=== PATIENT | male | born 1935 | race Caucasian/White ===

== ENCOUNTER 2018-07-01 02:13 | Outpatient (RCR) | payer MEDICARE, OTHER, SELFPAY ==
[2018-07-01] MEDS: Normal Saline Flush 10 ML SYR IVP (08:35)
[2018-07-01] MEDS: Heparin 500 UNITS/5 ML SYRINGE IV (08:35)
[2018-07-01 09:09] LABS: Abs Immature Grans 0.02 k/cumm (0.0-0.09); Absolute Basophil Count 0.06 k/cumm (0.0-0.2); Absolute Eosinophil Count 0.04 k/cumm (0.0-0.7); Absolute Lymphocyte Count 2.29 k/cumm (1.2-3.4); Absolute Neutrophil Count 4.81 k/cumm (1.2-6.7); Basophils % 0.8; Eosinophils % 0.5; HCT 33.1 % (40.0-50.0); Immature Grans % 0.3; Lymphocytes % 28.9; Mean Corp. HGB Concentration 33.2 g/dL (32.0-36.0); Mean Corpuscular Volume 96.2 fL (80-95); Mean Platelet Volume 10.1 fL (8.0-11.0); Monocytes % 8.8; Neutrophils % 60.7; Platelet Count 158 x1000/uL (130-400); RBC 3.44 m/cumm (4.50-6.00); RBC Distribution Width 15.3 % (11.8-14.1); White Blood Cell Count 7.92 k/cumm (4.4-10.8)
[2018-07-01 09:19] LABS: ALT 26 U/L (12-78); AST 15 U/L (15-37); Albumin 3.6 g/dL (3.4-5.0); Alkaline Phosphatase 59 U/L (46-116); Anion Gap 9.4 mmol/L (3-11); BUN 29 mg/dL (7-18); Bilirubin, Total 0.7 mg/dL (0.2-1.0); CO2 28.6 mmol/L (21.0-32.0); CREATININE 1.53 mg/dL (0.70-1.30); Calcium 8.8 mg/dL (8.5-10.1); Chloride 106 mmol/L (98-107); Glucose 115 mg/dL (70-100); LDH 175 U/L (85-227); Potassium 3.9 mmol/L (3.5-5.1); Sodium 144 mmol/L (136-145); Total Protein 6.1 g/dL (6.4-8.2)
== END 2018-07-17 ==
LOC: INF 07-15 02:13
PROVIDERS: PCP Internal Medicine; Visit Provider Internal Medicine Hematology & Oncology
DX: C83.30 Diffuse large B-cell lymphoma, unspecified site (principal); Z45.2 Encounter for adjustment and management of vascular access device
CPT/HCPCS: 36591; 80053; 83615; 85025

== ENCOUNTER 2018-08-05 09:34 | Outpatient (RCR) | payer MEDICARE, OTHER, SELFPAY ==
[2018-07-22] MEDS: Normal Saline Flush 10 ML SYR IVP (07:51)
[2018-07-22 08:00] LABS: Abs Immature Grans 0.01 k/cumm (0.0-0.09); Absolute Basophil Count 0.03 k/cumm (0.0-0.2); Absolute Eosinophil Count 0.24 k/cumm (0.0-0.7); Absolute Lymphocyte Count 2.57 k/cumm (1.2-3.4); Absolute Monocyte Count 1.22 k/cumm (0.11-0.7); Absolute Neutrophil Count 2.77 k/cumm (1.2-6.7); Basophils % 0.4; Eosinophils % 3.5; HCT 32.7 % (40.0-50.0); Immature Grans % 0.1; Lymphocytes % 37.6; Mean Corp. HGB Concentration 33.6 g/dL (32.0-36.0); Mean Corpuscular Hemoglobin 32.3 pg (27.0-33.0); Mean Corpuscular Volume 95.9 fL (80-95); Mean Platelet Volume 9.6 fL (8.0-11.0); Monocytes % 17.8; Neutrophils % 40.6; Platelet Count 126 x1000/uL (130-400); RBC 3.41 m/cumm (4.50-6.00); RBC Distribution Width 14.7 % (11.8-14.1); White Blood Cell Count 6.84 k/cumm (4.4-10.8)
[2018-07-22 08:14] LABS: ALT 31 U/L (12-78); AST 22 U/L (15-37); Albumin 3.6 g/dL (3.4-5.0); Alkaline Phosphatase 66 U/L (46-116); Anion Gap 2.5 mmol/L (3-11); BUN 33 mg/dL (7-18); Bilirubin, Total 0.7 mg/dL (0.2-1.0); CO2 29.5 mmol/L (21.0-32.0); CREATININE 1.45 mg/dL (0.70-1.30); Calcium 8.4 mg/dL (8.5-10.1); Chloride 108 mmol/L (98-107); Estimated GFR 46.71 (mL/min/1.73m2); Glucose 108 mg/dL (70-100); LDH 163 U/L (85-227); Sodium 140 mmol/L (136-145)
[2018-08-05] MEDS: Normal Saline Flush 10 ML SYR IVP (09:35)
[2018-08-05] MEDS: Heparin 500 UNITS/5 ML SYRINGE IV (09:35)
[2018-08-05 10:19] LABS: Abs Immature Grans 0.03 k/cumm (0.0-0.09); Absolute Basophil Count 0.03 k/cumm (0.0-0.2); Absolute Eosinophil Count 0.13 k/cumm (0.0-0.7); Absolute Lymphocyte Count 2.89 k/cumm (1.2-3.4); Absolute Monocyte Count 0.99 k/cumm (0.11-0.7); Absolute Neutrophil Count 3.75 k/cumm (1.2-6.7); Basophils % 0.4; Eosinophils % 1.7; HCT 34.5 % (40.0-50.0); HGB 11.4 g/dL (13.5-17.5); Immature Grans % 0.4; Mean Corpuscular Hemoglobin 31.4 pg (27.0-33.0); Mean Platelet Volume 11.5 fL (8.0-11.0); Monocytes % 12.7; Neutrophils % 47.8; Platelet Count 129 x1000/uL (130-400); RBC 3.63 m/cumm (4.50-6.00); RBC Distribution Width 14.5 % (11.8-14.1); White Blood Cell Count 7.82 k/cumm (4.4-10.8)
[2018-08-05 10:25] LABS: ALT 17 U/L (12-78); AST 13 U/L (15-37); Albumin 3.4 g/dL (3.4-5.0); Alkaline Phosphatase 62 U/L (46-116); Anion Gap 8.4 mmol/L (3-11); BUN 29 mg/dL (7-18); Bilirubin, Total 0.7 mg/dL (0.2-1.0); CO2 29.6 mmol/L (21.0-32.0); CREATININE 1.33 mg/dL (0.70-1.30); Calcium 8.2 mg/dL (8.5-10.1); Chloride 104 mmol/L (98-107); Estimated GFR 51.61 (mL/min/1.73m2); Glucose 96 mg/dL (70-100); LDH 157 U/L (85-227); Potassium 3.9 mmol/L (3.5-5.1); Sodium 142 mmol/L (136-145); Total Protein 5.9 g/dL (6.4-8.2)
== END 2018-08-16 23:59 | disposition home or self-care (01) ==
LOC: INF 09:34
PROVIDERS: PCP Internal Medicine; Visit Provider Internal Medicine Hematology & Oncology
DX: C83.30 Diffuse large B-cell lymphoma, unspecified site (principal); Z45.2 Encounter for adjustment and management of vascular access device
CPT/HCPCS: 36591; 80053; 83615; 85025

== ENCOUNTER 2018-09-16 08:30 | Outpatient (RCR) | payer MEDICARE, OTHER, SELFPAY ==
[2018-08-19] MEDS: Normal Saline Flush 10 ML SYR IVP (08:00)
[2018-08-19 08:16] LABS: Abs Immature Grans 0.04 k/cumm (0.0-0.09); Absolute Basophil Count 0.04 k/cumm (0.0-0.2); Absolute Eosinophil Count 0.23 k/cumm (0.0-0.7); Absolute Lymphocyte Count 3.11 k/cumm (1.2-3.4); Absolute Monocyte Count 1.39 k/cumm (0.11-0.7); Absolute Neutrophil Count 4.43 k/cumm (1.2-6.7); Basophils % 0.4; Eosinophils % 2.5; HCT 34.4 % (40.0-50.0); HGB 11.5 g/dL (13.5-17.5); Immature Grans % 0.4; Lymphocytes % 33.7; Mean Corp. HGB Concentration 33.4 g/dL (32.0-36.0); Mean Corpuscular Hemoglobin 31.8 pg (27.0-33.0); Mean Platelet Volume 10.9 fL (8.0-11.0); Platelet Count 128 x1000/uL (130-400); RBC 3.62 m/cumm (4.50-6.00); RBC Distribution Width 14.4 % (11.8-14.1); White Blood Cell Count 9.24 k/cumm (4.4-10.8)
[2018-08-19 08:29] LABS: ALT 17 U/L (12-78); AST 16 U/L (15-37); Albumin 3.3 g/dL (3.4-5.0); Alkaline Phosphatase 70 U/L (46-116); Anion Gap 7.4 mmol/L (3-11); BUN 26 mg/dL (7-18); Bilirubin, Total 0.9 mg/dL (0.2-1.0); CO2 29.6 mmol/L (21.0-32.0); CREATININE 1.46 mg/dL (0.70-1.30); Calcium 8.5 mg/dL (8.5-10.1); Chloride 104 mmol/L (98-107); Estimated GFR 46.34 (mL/min/1.73m2); Glucose 101 mg/dL (70-100); LDH 239 U/L (85-227); Potassium 3.9 mmol/L (3.5-5.1); Sodium 141 mmol/L (136-145); Total Protein 5.8 g/dL (6.4-8.2)
[2018-09-16] MEDS: Normal Saline Flush 10 ML SYR IVP (08:40)
[2018-09-16 09:06] LABS: Abs Immature Grans 0.07 k/cumm (0.0-0.09); Absolute Basophil Count 0.04 k/cumm (0.0-0.2); Absolute Eosinophil Count 0.07 k/cumm (0.0-0.7); Absolute Lymphocyte Count 3.17 k/cumm (1.2-3.4); Absolute Monocyte Count 1.07 k/cumm (0.11-0.7); Absolute Neutrophil Count 4.27 k/cumm (1.2-6.7); Basophils % 0.5; Eosinophils % 0.8; HCT 36.2 % (40.0-50.0); HGB 11.9 g/dL (13.5-17.5); Immature Grans % 0.8; Lymphocytes % 36.5; Mean Corp. HGB Concentration 32.9 g/dL (32.0-36.0); Mean Corpuscular Hemoglobin 31.2 pg (27.0-33.0); Mean Platelet Volume 11.9 fL (8.0-11.0); Monocytes % 12.3; Neutrophils % 49.1; Platelet Count 135 x1000/uL (130-400); RBC 3.81 m/cumm (4.50-6.00); RBC Distribution Width 14.6 % (11.8-14.1); White Blood Cell Count 8.69 k/cumm (4.4-10.8)
[2018-09-16 09:07] LABS: ALT 27 U/L (12-78); AST 21 U/L (15-37); Albumin 3.4 g/dL (3.4-5.0); Alkaline Phosphatase 59 U/L (46-116); Anion Gap 7.9 mmol/L (3-11); BUN 31 mg/dL (7-18); Bilirubin, Total 1.1 mg/dL (0.2-1.0); CO2 29.1 mmol/L (21.0-32.0); CREATININE 1.53 mg/dL (0.70-1.30); Calcium 8.7 mg/dL (8.5-10.1); Chloride 103 mmol/L (98-107); Glucose 111 mg/dL (70-100); LDH 185 U/L (85-227); Potassium 3.6 mmol/L (3.5-5.1); Sodium 140 mmol/L (136-145); Total Protein 5.9 g/dL (6.4-8.2)
== END 2018-09-16 23:59 | disposition home or self-care (01) ==
LOC: INF 08:30
PROVIDERS: Internal Medicine Hematology & Oncology; PCP Internal Medicine; Visit Provider Internal Medicine Medical Oncology
DX: C83.30 Diffuse large B-cell lymphoma, unspecified site (principal); Z45.2 Encounter for adjustment and management of vascular access device
CPT/HCPCS: 36591; 80053; 83615; 85025

== ENCOUNTER 2018-10-07 00:47 | Outpatient (CLI) | payer MEDICARE, OTHER, SELFPAY ==
--- NOTE | 2018-10-07 08:16 | DI.CT_ITS ---
SYMPTOMS/DIAGNOSIS: RESTAGING EXAM, LYMPHOMA, C83.30, NOW ON IBRUTINIB AND RITUXAN CHEST, ABDOMEN AND PELVIS CT: CT examination of the chest, abdomen and pelvis was performed with a bolus infusion of 100 cc of Omnipaque 350 and ingestion of dilute barium. Images are compared with the previous study of 05/29/18. The patient reportedly has a diagnosis of lymphoma. Previous examination showed right and left axillary lymph nodes measuring 19 and 17 mm in diameter, respectively. These are no longer visible. No mediastinal or hilar adenopathy. The tracheobronchial tree appears intact. Pulmonary interstitial changes again noted in the lung bases, grossly unchanged from the previous examination. Bronchiectasis noted in the lower lobes as well. No focal consolidation or mass. No pleural effusion or pleural-based mass. No evidence of pulmonary embolic disease or other major vascular abnormality. The liver is unremarkable in appearance except for an apparent small right lobe hepatic cyst. Spleen is normal in appearance. The pancreas appears normal. Gallbladder and bile ducts are CT normal. Abdominal aorta is of normal diameter and no major vascular abnormality is seen. Small fat-containing inguinal hernias and small fat-containing umbilical hernia noted. No focal bowel pathology. Adrenals and kidneys appear normal except for an incidental left renal cyst measuring about 2.5 cm in greatest diameter. Previous study showed bulky retroperitoneal adenopathy. Enlarged nodes measured about 5.7 cm x 2.8 cm in diameter at the level of the right adrenal gland. On today's examination, these nodes are only mildly enlarged at 24 x 7 mm. No additional adenopathy identified in the abdomen, pelvis or inguinal region. No bony abnormality seen. CONCLUSION: 1. Interval resolution of bilateral axillary adenopathy in comparison with examination of 05/29/18, right and left axillary nodes of 19 mm and 17 mm on the previous examination are no longer visible. 2. Marked interval decrease in size of upper abdominal retroperitoneal adenopathy, previously noted group of nodes measuring 57 x 28 mm in diameter now measures 24 x 7 mm in diameter. 3. No additional adenopathy identified at this time. No other specific evidence of metastatic disease.
[2018-10-07] MEDS: Breeza Beverage 473 ML BTL PO ×2 (08:35→08:36)
[2018-10-07] MEDS: Omnipaque 350 MG/ML 50 ML BTL PO (08:36)
[2018-10-07] MEDS: Omnipaque 350 MG/ML 100 ML BTL IJ (10:11)
== END 2018-10-07 01:07 ==
PROVIDERS: PCP Internal Medicine; Visit Provider Internal Medicine Hematology & Oncology
DX: C83.30 Diffuse large B-cell lymphoma, unspecified site (principal); Z79.899 Other long term (current) drug therapy; Z12.89 Encounter for screening for malignant neoplasm of other sites; E27.9 Disorder of adrenal gland, unspecified
CPT/HCPCS: 74177; 71260; J3490; Q9967

== ENCOUNTER 2018-10-14 01:11 | Outpatient (RCR) | payer MEDICARE, OTHER, SELFPAY ==
[2018-10-07] MEDS: Heparin 500 UNITS/5 ML SYRINGE IV (08:05)
[2018-10-07] MEDS: Normal Saline Flush 10 ML SYR IVP (08:05)
[2018-10-07 08:49] LABS: ALT 19 U/L (12-78); AST 13 U/L (15-37); Albumin 3.5 g/dL (3.4-5.0); Alkaline Phosphatase 49 U/L (46-116); Anion Gap 6.2 mmol/L (3-11); BUN 26 mg/dL (7-18); Bilirubin, Total 1.1 mg/dL (0.2-1.0); CO2 29.8 mmol/L (21.0-32.0); CREATININE 1.29 mg/dL (0.70-1.30); Calcium 8.5 mg/dL (8.5-10.1); Chloride 106 mmol/L (98-107); Estimated GFR 53.46 (mL/min/1.73m2); Glucose 88 mg/dL (70-100); Sodium 142 mmol/L (136-145); Total Protein 5.8 g/dL (6.4-8.2)
[2018-10-14] MEDS: Normal Saline Flush 10 ML SYR IVP (08:04)
[2018-10-14 08:12] LABS: Abs Immature Grans 0.08 k/cumm (0.0-0.09); Absolute Basophil Count 0.05 k/cumm (0.0-0.2); Absolute Eosinophil Count 0.06 k/cumm (0.0-0.7); Absolute Lymphocyte Count 2.76 k/cumm (1.2-3.4); Absolute Neutrophil Count 3.84 k/cumm (1.2-6.7); Basophils % 0.6; Eosinophils % 0.8; HCT 36.1 % (40.0-50.0); HGB 11.9 g/dL (13.5-17.5); Lymphocytes % 35.4; Mean Corpuscular Hemoglobin 31.7 pg (27.0-33.0); Mean Corpuscular Volume 96.3 fL (80-95); Mean Platelet Volume 11.8 fL (8.0-11.0); Monocytes % 12.8; Neutrophils % 49.4; Platelet Count 126 x1000/uL (130-400); RBC 3.75 m/cumm (4.50-6.00); RBC Distribution Width 14.5 % (11.8-14.1); White Blood Cell Count 7.79 k/cumm (4.4-10.8)
[2018-10-14 08:23] LABS: ALT 16 U/L (12-78); AST 11 U/L (15-37); Albumin 3.6 g/dL (3.4-5.0); Alkaline Phosphatase 51 U/L (46-116); Anion Gap 6.9 mmol/L (3-11); BUN 33 mg/dL (7-18); Bilirubin, Total 1.1 mg/dL (0.2-1.0); CO2 29.1 mmol/L (21.0-32.0); CREATININE 1.41 mg/dL (0.70-1.30); Calcium 8.7 mg/dL (8.5-10.1); Chloride 105 mmol/L (98-107); Estimated GFR 48.24 (mL/min/1.73m2); Glucose 119 mg/dL (70-100); Potassium 3.7 mmol/L (3.5-5.1); Sodium 141 mmol/L (136-145); Total Protein 5.8 g/dL (6.4-8.2)
== END 2018-10-16 23:59 | disposition home or self-care (01) ==
LOC: INF 01:11
PROVIDERS: PCP Internal Medicine; Visit Provider Internal Medicine Hematology & Oncology
DX: C83.30 Diffuse large B-cell lymphoma, unspecified site (principal); Z45.2 Encounter for adjustment and management of vascular access device
CPT/HCPCS: 36591; 74177; 80053; 71260; 85025; J3490; Q9967

== ENCOUNTER 2018-11-18 02:05 | Outpatient (RCR) | payer MEDICARE, OTHER, SELFPAY ==
[2018-11-18] MEDS: Normal Saline Flush 10 ML SYR IVP (08:30)
[2018-11-18 08:46] LABS: Abs Immature Grans 0.31 k/cumm (0.0-0.09); Absolute Basophil Count 0.06 k/cumm (0.0-0.2); HCT 35.5 % (40.0-50.0); HGB 11.6 g/dL (13.5-17.5); Mean Corp. HGB Concentration 32.7 g/dL (32.0-36.0); Mean Corpuscular Hemoglobin 30.7 pg (27.0-33.0); Mean Corpuscular Volume 93.9 fL (80-95); Mean Platelet Volume 11.4 fL (8.0-11.0); Platelet Count 163 x1000/uL (130-400); RBC 3.78 m/cumm (4.50-6.00); RBC Distribution Width 14.1 % (11.8-14.1); White Blood Cell Count 5.98 k/cumm (4.4-10.8)
[2018-11-18 09:00] LABS: ALT 180 U/L (12-78); AST 132 U/L (15-37); Albumin 2.9 g/dL (3.4-5.0); Alkaline Phosphatase 54 U/L (46-116); Anion Gap 6.2 mmol/L (3-11); BUN 29 mg/dL (7-18); Bilirubin, Total 0.8 mg/dL (0.2-1.0); CO2 31.8 mmol/L (21.0-32.0); CREATININE 1.46 mg/dL (0.70-1.30); Calcium 8.6 mg/dL (8.5-10.1); Chloride 104 mmol/L (98-107); Estimated GFR 46.34 (mL/min/1.73m2); Glucose 106 mg/dL (70-100); LDH 761 U/L (85-227); Sodium 142 mmol/L (136-145); Total Protein 5.6 g/dL (6.4-8.2)
[2018-11-18 09:03] LABS: Absolute Neutrophil Count 2.99 k/cumm (1.2-6.7)
[2018-11-18 09:04] LABS: Absolute Eosinophil Count 0.12 k/cumm (0.0-0.7); Absolute Lymphocyte Count 1.61 k/cumm (1.2-3.4); Absolute Monocyte Count 1.02 k/cumm (0.11-0.7); Atypical Lymphocytes % 2; Diff Comment Manual Differential
[2018-11-18 09:05] LABS: Poikilocytes 1+
== END 2018-12-17 23:59 | disposition home or self-care (01) ==
LOC: INF 02:05
PROVIDERS: PCP Internal Medicine; Visit Provider Internal Medicine Hematology & Oncology
DX: C83.30 Diffuse large B-cell lymphoma, unspecified site (principal); Z45.2 Encounter for adjustment and management of vascular access device
CPT/HCPCS: 36591; 80053; 83615; 85025

== ENCOUNTER 2018-12-11 19:58 | Inpatient (IN) | payer MEDICARE, OTHER, SELFPAY ==
[2018-12-11] VITALS (36 sets, daily range): BP systolic 104–146; BP diastolic 43–73; PULSE 66–83; RESP 2–32; TEMP 37.5–38.3; O2SAT 87–98
--- NOTE | 2018-12-11 20:39 | ED.GENADUL_ITS ---
Discharge Plan Disposition Patient Disposition: [facility] INPATIENT Condition: Fair Discharge Details Chief Complaint: RespSymp Clinical Impression: CAP (community acquired pneumonia) Primary Care Provider: Leo Vargas ED Provider: Immanuel Miguel [place] Meds and New Rx's Prescriptions: No Action losartan 25 MG tablet 50 mg PO QAM RF: 0 aspirin 325 MG tablet 81 mg PO DAILY RF: 0 acyclovir 800 MG tablet 800 mg PO BID RF: 0 ezetimibe-simvastatin [Vytorin 10-80] 1 EACH tablet 1 ea PO DAILY RF: 0 colchicine 0.6 MG capsule 0.6 mg PO DAILY RF: 0 triamterene-hydrochlorothiazid 1 EACH tablet 1 ea PO DAILY RF: 0 ondansetron 8 MG tablet,disintegrating 8 mg OD PRN RF: 0 magnesium oxide 400 MG tablet 400 mg PO DAILY Qty: 30 RF: 0 Medical Decision Making Patient presenting with cough. Has a low-grade fever here. Has rhonchi and few wheezes bilateral lungs. Is not in any distress. Saturations in the low to mid 90s. He is not tachypneic. He is a lymphoma patient. We will check CBC and BMP. We will check a chest x-ray. Will give DuoNeb to see if it helps with the cough and wheeze. Patient's chest x-ray shows probable bilateral basilar infiltrates. DuoNeb did not really seem to help much. Oxygen saturations when he came back from x-ray were 89%. He is placed on nasal cannula. Laboratory studies significant for white count of 4.3. Preliminary neutrophil count greater than 500 but manual differential pending. Chemistries show his chronic renal disease. Electrolytes are normal. Patient has not been hospitalized recently. He has community- acquired pneumonia. His pneumonia severity index places him at a class V. I will get a lactic acid and blood cultures and start antibiotics and fluids. Will discuss with hospitalist for admission. EKG is sinus rhythm with nonspecific ST changes. Case discussed with Dr. Mendoza. He is on his way in to admit the patient. Medical Records Medical records reviewed: Yes I reviewed the patient's medical records. Lab Data Lab results reviewed: Yes I reviewed the patient's lab results. ECG Data Attestation: I personally reviewed and interpreted this ECG (s) as follows: Prior ECG tracings: available for review Interpretation: Sinus rhythm at a rate of 79. Normal axis and intervals. Nonspecific ST flattening but no acute ST elevation or depression. HPI General Mode of arrival: ambulatory . Date/Time Provider Initiated Documentation: 12/11/18 20:39 . Limitations to Documentation: no limitations . Information obtained by: patient and old records reviewed . HPI Narrative: Patient presents to ED with complaint of cough. He has had this now for 5 days. He has shortness of breath during a coughing fit but not otherwise. He does not think he has had a fever. He denies having runny nose, earache, sore throat, body ache, headache. He has no chest pain or back pain. He has no abdominal pain. He is been eating and drinking fine. However, the cough has been bothering him and keeping him up. He is a lymphoma patient and still receives chemotherapy. Last dose was at the end of October. He has not had anything recently. Related Data Home Medications Medication Instructions Recorded Confirmed losartan 50 mg PO QAM 02/04/13 12/11/18 acyclovir 800 mg PO BID 07/05/16 12/11/18 aspirin 81 mg PO DAILY 07/05/16 12/11/18 colchicine 0.6 mg PO DAILY 07/05/16 12/11/18 ezetimibe-simvastatin [Vytorin 1 ea PO DAILY 07/05/16 12/11/18 10-80] triamterene-hydrochlorothiazid 1 ea PO DAILY 12/31/17 04/21/18 ondansetron 8 mg OD PRN 04/21/18 12/11/18 magnesium oxide 400 mg PO DAILY #30 tab 04/23/18 12/11/18 Previous Rx's Medication Instructions Recorded magnesium oxide 400 mg PO DAILY #30 tab 04/23/18 Allergies Allergy/AdvReac Type Severity Reaction Status Date / Time No Known Allergies Allergy Unverified 04/21/18 13:40 General Stated Complaint: RespSymp DC: 3 Review of Systems Constitutional Denies chills, Denies fatigue, Denies fever(s), Denies headache(s), Denies malaise, Denies poor appetite and Denies weakness Eyes Denies change in vision, Denies eye discharge, Denies irritation and Denies eye pain ENT Denies dizziness, Denies otalgia, Denies facial pain, Denies headache(s), Denies nasal congestion, Denies nasal discharge, Denies neck pain and Denies sore throat Cardiovascular Denies chest pain, Denies diaphoresis, Denies syncope, Reports leg edema (chronic, unchanged) and Denies dyspnea Respiratory Denies chest congestion, Reports cough and Denies dyspnea Gastrointestinal Denies abdominal pain, Denies diarrhea, Denies nausea and Denies vomiting Genitourinary Denies hematuria, Denies dysuria and Denies flank pain Musculoskeletal Denies back pain, Denies myalgias, Denies arthralgias, Denies neck pain and Denies numbness Integumentary/Breasts Denies erythema and Denies rash Neurologic Denies confusion, Denies dizziness, Denies syncope, Denies headache(s), Denies numbness and Denies weakness Psychiatric Denies confusion Endocrine Denies fatigue [facility] Medical History Diabetes type 2, controlled (Chronic) Hypertension (Chronic) Diffuse large B cell lymphoma (Chronic) Allergic rhinitis (Chronic) Benign prostatic hypertrophy without urinary obstruction (Chronic) Chronic renal impairment (Chronic) Gout (Chronic) Hypercholesterolemia (Chronic) Peripheral venous insufficiency (Chronic) Polyp of colon (Inactive) Surgical History Mediport placement (Chronic) Colonoscopy - MAC (Inactive 07/08/16) Family History Mother No problems noted. Father No problems noted. Social History Smoking/Tobacco Use Status: Never Exam Const General: cooperative, comfortable and no acute distress Orientation: alert and oriented x3 [facility] Head: normocephalic and atraumatic Ears: external ears normal General nose exam: external nose normal and no nasal discharge Mouth: oropharynx normal Throat: posterior oropharynx abnormal cobblestoning; no edema, no erythema and no exudates Neck Neck: normal visual inspection, trachea midline and supple Chest Chest: other (port in left chest) Resp Effort & Inspection: normal respiratory effort, no audible wheezes, cough and not tachypneic Auscultation: no crackles, no rales, rhonchi lower bilaterally and wheezes lower bilaterally (scattered in bases) Cardio Rate: regular rate Rhythm: regular rhythm Heart Sounds: S1 normal and S2 normal GI Palpation: soft, not firm, no guarding and nontender Skin Rashes: no rashes Neuro General: alert, oriented x3, no focal motor deficits, CN's II-XI intact bilaterally and not confused Extrem General: full ROM, no cyanosis and edema Laterality: bilateral (1+ LE) Course Vital Signs Temperature 100.9 F H 12/11/18 20:02 Pulse 82 12/11/18 20:02 Respiratory Rate 16 12/11/18 20:02 Blood Pressure 104/59 L 12/11/18 20:02 Pulse Oximetry 93 L 12/11/18 20:02 Temperature 100.9 F H 12/11/18 20:02 Temperature Source Skin 12/11/18 20:02 Pulse 82 12/11/18 20:02 Respiratory Rate 16 12/11/18 20:02 Respiratory Effort Non-Labored 12/11/18 20:29 Respiratory Depth Normal 12/11/18 20:29 Blood Pressure 104/59 L 12/11/18 20:02 Blood Pressure Position Sitting 12/11/18 20:02 Pulse Oximetry 93 L 12/11/18 20:02 Oxygen Delivery Method Room Air 12/11/18 20:02 Oxygen Flow Rate 0 12/11/18 20:02
--- NOTE | 2018-12-11 20:44 | DI.RAD_ITS ---
SYMPTOM/DIAGNOSIS: COUGH PA AND LATERAL CHEST: Comparison is made with 21 April 2018. A port is again noted over the left upper chest with the tip in the SVC. The heart size is normal. There are underlying fibrotic changes. A tiny effusion is seen on the lateral view. There are increased densities at the lung bases compared with the previous exam, suspicious for infiltrates. IMPRESSION: Tiny effusion and basilar infiltrates.
[2018-12-11] MEDS: Albuterol/Ipratropium 3 ML UPD VIAL UPD (20:50)
[2018-12-11 20:57] LABS: Abs Immature Grans 0.33 k/cumm (0.0-0.09); HCT 32.1 % (40.0-50.0); HGB 10.5 g/dL (13.5-17.5); Immature Grans % 7.7; Mean Corp. HGB Concentration 32.7 g/dL (32.0-36.0); Mean Corpuscular Hemoglobin 30.2 pg (27.0-33.0); Mean Corpuscular Volume 92.2 fL (80-95); Mean Platelet Volume 11.3 fL (8.0-11.0); Platelet Count 156 x1000/uL (130-400); RBC 3.48 m/cumm (4.50-6.00); RBC Distribution Width 14.4 % (11.8-14.1)
[2018-12-11 21:08] LABS: BUN 21 mg/dL (7-18); CREATININE 1.53 mg/dL (0.70-1.30); Calcium 8.3 mg/dL (8.5-10.1); Chloride 100 mmol/L (98-107); Glucose 91 mg/dL (70-100); Potassium 3.6 mmol/L (3.5-5.1); Sodium 139 mmol/L (136-145)
--- NOTE | 2018-12-11 21:27 | DI.VRAD_ITS ---
EXAM: XR Chest, 2 Views EXAM DATE/TIME: 12/11/2018 8:46 PM CLINICAL HISTORY: 83 years old, male; Signs and symptoms; Cough; Prior surgery; Surgery date: 6+ months; Surgery type: Port TECHNIQUE: XR of the chest, 2 views. COMPARISON: CR CHEST 2 VIEWS PA,LAT 04/21/2018 2:57 PM FINDINGS: Tubes, catheters and devices: Indwelling central venous catheter port is present with the port tip superimposed over the mid lower SVC. Lungs: Bibasilar patchy lung densities, likely atelectasis. Bibasilar infiltrates are not excluded. Pleural space: No pneumothorax. No pleural effusion. Heart/Mediastinum: Unremarkable cardiomediastinal silhouette and pulmonary vasculature. Bones/joints: Unremarkable. IMPRESSION: 1. Indwelling central venous port catheter tip superimposed over the mid lower SVC. No pneumothorax. 2. Bilateral lower lobe opacities. Differential diagnosis includes atelectasis and pneumonia. Dictated and Authenticated by: Juan Manuel Pascual MD. Ordering:SAM Gambino MD
[2018-12-11 21:53] LABS: Absolute Eosinophil Count 0.13 k/cumm (0.0-0.7); Absolute Lymphocyte Count 1.85 k/cumm (1.2-3.4); Atypical Lymphocytes % 7
[2018-12-11 22:16] LABS: Absolute Monocyte Count 1.81 k/cumm (0.11-0.7); Promyelocytes % 3 %
[2018-12-11 22:19] LABS: Anisocytosis 1+; Hypochromasia 2+; Poikilocytes 1+
[2018-12-11 22:25] LABS: Lactate-non-spesis 0.5 mmol/l (0.6-1.4)
[2018-12-11] MEDS: AZITHROMYCIN 500 MG in Normal Saline 250 ML 250 MG IVPB (22:31)
--- NOTE | 2018-12-11 22:34 | W.PM.HP.N ---
Date of service: 12/11/18 Time of Service: 22:34 Assessment and Plan (1) Febrile neutropenia: Current visit: Yes Status: Acute Febrile neutropenia with pneumonia as evident source of infection. Patient did receive a dose of Rocephin prior to manual differential results being available. Will switch to cefepime for antipseudomonal coverage and add vancomycin as well History of Present Illness Chief Complaint: cough Narrative: Patient is an 83-year-old male undergoing chemotherapy for B-cell lymphoma. He comes in with 5 days of cough. No shortness of breath or chest pain. In the emergency room chest x-ray findings were consistent with bibasilar pneumonitis he was given a dose of Rocephin and admitted for further evaluation Past medical history diabetes, hypertension, B-cell lymphoma, gout, BPH, CRI, venous insufficiency Allergies none known Medications acyclovir 800 twice daily aspirin 81 daily colchicine 0.6 daily Vytorin daily Zofran as needed Physical exam temp 38.3 blood pressure 104/59, pulse 82 respirations 16 O2 sat 94% on 2 L HEENT is unremarkable neck supple lungs bibasilar rales left greater than right. Heart regular rate and rhythm with 2/6 apical systolic murmur. Abdomen is soft and nontender. and rectal exams deferred. Extremities 1+ pedal edema. Neurological patient is alert and oriented moves all 4 extremities. Laboratory White count is 4.3 with ANC of 300 hematocrit 32 platelets 156 sodium 139 potassium 3.6 chloride 100 bicarb 31 BUN 21 creatinine 1.5 lactate 0.5. Chest x-ray shows left lower lobe opacity, possibly also on the right. Review of Systems Review of Systems All systems reviewed & are unremarkable except as noted in HPI and below PFSH Medical History Diabetes type 2, controlled (Chronic) Hypertension (Chronic) Diffuse large B cell lymphoma (Chronic) Allergic rhinitis (Chronic) Benign prostatic hypertrophy without urinary obstruction (Chronic) Chronic renal impairment (Chronic) Gout (Chronic) Hypercholesterolemia (Chronic) Peripheral venous insufficiency (Chronic) Polyp of colon (Inactive) Surgical History Mediport placement (Chronic) Colonoscopy - MAC (Inactive 07/08/16) Family History Mother No problems noted. Father No problems noted. Social History Smoking/Tobacco Use Status: Never Meds Home Medications Medication Instructions Recorded Confirmed Type losartan 50 mg PO QAM 02/04/13 12/11/18 History acyclovir 800 mg PO BID 07/05/16 12/11/18 History aspirin 81 mg PO DAILY 07/05/16 12/11/18 History colchicine 0.6 mg PO DAILY 07/05/16 12/11/18 History ezetimibe-simvastatin [Vytorin 1 ea PO DAILY 07/05/16 12/11/18 History 10-80] triamterene-hydrochlorothiazid 1 ea PO DAILY 12/31/17 04/21/18 History ondansetron 8 mg OD PRN 04/21/18 12/11/18 History magnesium oxide 400 mg PO DAILY #30 tab 04/23/18 12/11/18 Rx Allergies Allergy/AdvReac Type Severity Reaction Status Date / Time No Known Allergies Allergy Unverified 04/21/18 13:40 Exam Narrative Exam Narrative: per HPI Results Labs : 12/11/18 20:35 12/11/18 20:35 Laboratory Results - last 24 hr 12/11/18 12/11/18 12/11/18 20:35 20:35 22:10 WBC 4.30 L RBC 3.48 L Hgb 10.5 L Hct 32.1 L MCV 92.2 MCH 30.2 MCHC 32.7 RDW 14.4 H Plt Count 156 MPV 11.3 H Immature Gran % 7.7 Neutrophils % 2.0 Band Neutrophils % 5.0 Lymphocytes % 36.0 Atypical Lymphs % 7 Monocytes % 42.0 Eosinophils % 3.0 Basophils % 0.0 Absolute Neutrophils 0.30 L* Absolute Lymphocytes 1.85 Absolute Monocytes 1.81 H Absolute Eosinophils 0.13 Absolute Basophils 0.00 Metamyelocytes 1.0 Myelocytes 1.0 Promyelocytes 3 Hypochromasia 2+ Poikilocytosis 1+ Anisocytosis 1+ Sodium 139 Potassium 3.6 Chloride 100 Carbon Dioxide 31.0 Anion Gap 8.0 BUN 21 H Creatinine 1.53 H Estimated GFR/1.73 m2 43.90 Glucose 91 Lactate 0.5 L Calcium 8.3 L Last Vital Signs Temp 38.3 C H 12/11/18 20:45 Pulse 82 12/11/18 20:02 Resp 18 12/11/18 20:50 BP 104/59 L 12/11/18 20:02 Pulse Ox 94 L 12/11/18 21:31
[2018-12-12] MEDS: VANCOMYCIN 1,250 MG in Normal Saline 250 ML 166.6666 MG IVPB (00:48)
[2018-12-12] MEDS: CEFEPIME 2 GM in Normal Saline 100 ML IVPB (02:04)
[2018-12-12] MEDS: Lactated Ringers 1,000 ML 125 ML IV ×2 (04:52→12:31)
[2018-12-12 07:25] VITALS: BP 136/68; PULSE 68; RESP 17; TEMP 38.7; O2SAT 97
[2018-12-12 07:57] VITALS: TEMP 39.3
[2018-12-12] MEDS: Acetaminophen 325 MG TAB 650 MG PO (07:57)
[2018-12-12] MEDS: Magnesium Oxide 400 MG TAB PO (07:57)
[2018-12-12] MEDS: Colchicine 0.6 MG TAB PO (07:58)
[2018-12-12] MEDS: Losartan 25 MG TAB 50 MG PO (07:58)
[2018-12-12] MEDS: Acyclovir 400 MG TAB 800 MG PO ×2 (07:58→20:08)
[2018-12-12 08:56] LABS: White Blood Cell Count 5.37 k/cumm (4.4-10.8)
[2018-12-12 08:57] LABS: Absolute Neutrophil Count 0.75 k/cumm (1.2-6.7)
[2018-12-12 08:58] LABS: HCT 31.9 % (40.0-50.0); HGB 10.2 g/dL (13.5-17.5); Mean Corpuscular Volume 92.5 fL (80-95); RBC 3.45 m/cumm (4.50-6.00)
[2018-12-12 08:59] LABS: Absolute Basophil Count 0.05 k/cumm (0.0-0.2); Absolute Eosinophil Count 0.05 k/cumm (0.0-0.7); Absolute Lymphocyte Count 2.36 k/cumm (1.2-3.4); Absolute Monocyte Count 2.15 k/cumm (0.11-0.7); Mean Corpuscular Hemoglobin 29.6 pg (27.0-33.0); Mean Platelet Volume 11.8 fL (8.0-11.0); Platelet Count 162 x1000/uL (130-400); RBC Distribution Width 14.7 % (11.8-14.1)
[2018-12-12 09:00] LABS: Diff Comment Manual Differential; Microcytosis 1+; Poikilocytes 1+
[2018-12-12 09:30] VITALS: TEMP 37.7
[2018-12-12] MEDS: Aspirin 81 MG CHEW PO (09:51)
[2018-12-12 10:31] LABS: Anion Gap 8.2 mmol/L (3-11); BUN 21 mg/dL (7-18); CO2 27.8 mmol/L (21.0-32.0); CREATININE 1.53 mg/dL (0.70-1.30); Chloride 103 mmol/L (98-107); Glucose 103 mg/dL (70-100); Potassium 3.9 mmol/L (3.5-5.1); Sodium 139 mmol/L (136-145)
[2018-12-12 13:03] VITALS: BP 143/66; PULSE 65; RESP 17; TEMP 37.1; O2SAT 96
--- NOTE | 2018-12-12 13:05 | PHARADMIT ---
Addendum entered by Gómez Hughes III 12/16/18 12:06: Pharmacy Note Subjective Neutrapenia resolved, BC shows Bhakti.Fragilis. [facility] [place] Re: Flagyl && Levaquin PO Objective VS-OK K+3.3 Mag-202 WBC- 6.97 ANC- 3.14 Assessment Cefepime DC'd Plan MD expects discharge home tomorrow Original Note: Addendum entered by Cami Crowley 12/15/18 17:20: Pharmacy Note Subjective Objective BP-161/82 other VS-okay K+3.4 mag-1.5 Assessment cefepime changed to levofloxacin and metronidazole for 14 day course of therapy mag and K+ replacement given one blood culture grew B.Fragilis Plan continue to watch VS labs and for med changes Original Note: Addendum entered by Cami Crowley 12/14/18 16:23: Pharmacy Note Subjective Objective BP-163/77 other VS okay mag-1.7 SCr-1.09(down) Assessment blood cultures- 1culture from first set growing gram negative magan, set from 12/12 no growth @48hrs cefepime continues (day 3) PO mag and K+ replacement given Plan continue to watch micro Original Note: Addendum entered by Dottie Bird 12/13/18 14:10: Pharmacy Note Subjective Objective Afebrile x24h/hr+, BP 148/67, K+ 3.3, Mag 1.4, ANC up 1.59 Micro sputum: normal growth Micro blood 1st draw on 12/11/18: preliminary gram neg magan Micro blood 2nd draw on 12/12/18: no growth x24h Assessment Cefepime was dc'd, IV Levaquin x1 given, then changed back to Cefepime 2gram [id number] adjusted Once CrCl> 60ml/min, suggested normal dose of 2gram Q12h Vanco dc'd based on cultures Mag 2gram IV x1 K-Dur 40meq po x 2 doses today Heparin SC added today, oversight by MD Plan Watch Micro for sensitivities and renal function improvement Possible discharge Friday Original Note: Admission Pharmacy Clinical Review FEBRILE NEUTROPENIA, PNEUMONIA? Code Status Full Code Current Weight 79.2 kg Renally Cleared and Narrow Therapeutic Index Meds CrCl~35ml/min Cefepime/Vanco QTc Value / Action Taken BP Control, Fever BP 143/66 HR 65, Afebrile now (Tmax 39.3 overnight) Electrolytes reviewed K+ 3.9 DVT Prophylaxis only ASA 81mg...will ask MD Opiate Usage / Scheduled Bowel Regimen Ordered Plt/SCr for Heparin / Enoxaparin Plt 162 SCr 1.53 INR for Warfarin H/H stable, WBC/Bands H/H 10.2/31.9 WBC 5.37 Antibiotic appropriateness Cefepime (renally adjusted to Q24h) & Vanco Rec'd 1x Azith and Ceftriaxone in ED Cultures and Sensitivities Blood cultures x 2 and sputum pending Surgical ABX d/c within 24 hr DM control / Insulin Dosing BG 103 (Pt is type-2 diabetic w/no medication management so will be testing fingersticks BID, as he reportedly runs low blood sugars Heart Failure (Check EF%) (ERNA's, B-Block, Diuretics) Losartan IV to PO Switch Home Meds Reviewed Home Meds Not Ordered Vytorin, Dyazide Comments currently being treated w/chemo for b-cell lymphoma
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
[2018-12-12 16:09] VITALS: BP 152/63; PULSE 65; RESP 19; TEMP 37.5; O2SAT 93
--- NOTE | 2018-12-12 18:37 | NUR.NOTE ---
Nursing Note: Patient has remained afebrile since the early part of the shift
--- NOTE | 2018-12-12 18:46 | W.PM.PROGNOT ---
Date of Service Date of service: 12/12/18 Time of Service: 18:46 Assessment and Plan (1) Febrile neutropenia: Current visit: Yes Status: Acute In setting of pneumonia. ANC improved without significant intervention, with a normalized WBC. No role for Neopogen at this time. Continue Cefepime, currently day #1. Port appears clean and without surrounding cellulitic changes or underlying fluctuance - hold Vancomycin. Monitor blood cultures, Sputum cultures if able to collect. (2) Pneumonia: Current visit: Yes Status: Acute Treatment as above. (3) Diabetes type 2, controlled: Current visit: Yes Status: Chronic Appears diet controlled. Monitor finger stick glucose, and initiate sliding scale if warranted. (4) Diffuse large B cell lymphoma: Current visit: Yes Status: Chronic Currently on Imbruvica and monthly Rituximab. Follows with Dr. Cristal Oneal from [facility] [place] - Oncology team at [facility] notified, case discussed - agree with plan. (5) CKD (chronic kidney disease): Current visit: Yes Status: Acute Creatinine appears at baseline. (6) DVT prophylaxis: Current visit: Yes Status: Acute SC Heparin Subjective Interval history since last seen: 83-year-old man with past medical history significant for B-cell lymphoma, currently undergoing chemotherapy, admitted from [facility] Emergency Department on 12/11 with a diagnosis of febrile neutropenia and pneumonia. Mr. Gonzaels has a past history significant for B-Cell Lymphoma currently on monthy Rituximab and daily Ibrutinib. He also has known gout, BPH, HTN, Dyslipidemia, CKD, and Diabetes. The patient presented to the ED with complaints of 5 days of cough. Work-up revealed evidence of Pneumonia by imaging, and mild leukocytosis with concurrent ANC of 300. The patient was admitted and initiated on Vancomycin and Cefepime. Mr. Gonzales reports improvement in his symptoms overall. His white count has normalized, with an ANC value of 750. He had a recurrence of fevers early this morning. No other overnight events reported. Exam Narrative Exam Narrative: General: Patient appears comfortable, AAOX3, NAD Neck: Supple CV: Regular, nontachycardic, S1S2, No rubs, murmurs, or gallops. Pulmonary: Bibasilar crackles without wheezing or rhonchi Abdomen: + Bowel Sounds, soft, nontender, nondistended Vascular: No lower extremity edema Psych: Normal mood and affect. Objective Objective Clinical Data: Abnormal lab results 12/11/18 12/11/18 12/11/18 Range/Units 20:35 20:35 22:10 WBC 4.30 L (4.4-10.8) k/cumm RBC 3.48 L (4.50-6.00) m/cumm Hgb 10.5 L (13.5-17.5) g/dL Hct 32.1 L (40.0-50.0) % RDW 14.4 H (11.8-14.1) % MPV 11.3 H (8.0-11.0) fL Absolute Neutrophils 0.30 L* (1.2-6.7) k/cumm Absolute Monocytes 1.81 H (0.11-0.7) k/cumm BUN 21 H (7-18) mg/dL Creatinine 1.53 H (0.70-1.30) mg/dL Glucose (70-100) mg/dL Lactate 0.5 L (0.6-1.4) mmol/l Calcium 8.3 L (8.5-10.1) mg/dL 12/12/18 12/12/18 Range/Units 06:48 06:48 WBC (4.4-10.8) k/cumm RBC 3.45 L (4.50-6.00) m/cumm Hgb 10.2 L (13.5-17.5) g/dL Hct 31.9 L (40.0-50.0) % RDW 14.7 H (11.8-14.1) % MPV 11.8 H (8.0-11.0) fL Absolute Neutrophils 0.75 L (1.2-6.7) k/cumm Absolute Monocytes 2.15 H (0.11-0.7) k/cumm BUN 21 H (7-18) mg/dL Creatinine 1.53 H (0.70-1.30) mg/dL Glucose 103 H (70-100) mg/dL Lactate (0.6-1.4) mmol/l Calcium 8.0 L (8.5-10.1) mg/dL Vital Signs Temperature 37.5 C 12/12/18 16:09 Temperature Source Tympanic 12/12/18 16:09 Pulse 65 12/12/18 16:09 Pulse Rhythm Regular 12/12/18 11:37 Pulse 73 12/11/18 23:10 Respiratory Rate 19 12/12/18 16:09 Respiratory Effort 12/12/18 11:37 Respiratory Depth Normal 12/12/18 11:37 Respiratory Pattern Normal 12/12/18 11:37 Blood Pressure 152/63 H 12/12/18 16:09 Blood Pressure Mean 70 12/11/18 23:01 Blood Pressure Position Sitting 12/11/18 20:02 Pulse Oximetry 93 L 12/12/18 16:09 Oxygen Delivery Method Room Air 12/12/18 16:09 Oxygen Flow Rate 0 12/12/18 16:09 Pain Level 0 12/11/18 23:30 Comment 12/12/18 09:30 Intake & Output 12/11/18 12/12/18 12/12/18 23:59 11:59 23:59 Intake Total 50 / 50 1240 / 2554.167 1314.167 / 2554.167 Output Total 900 / 900 Balance 50 / 50 1240 / 1654.167 414.167 / 1654.167 Weight 79.2 kg Intake: IV 50 / 50 600 / 1554.167 954.167 / 1554.167 Oral 640 / 1000 360 / 1000 Output: Urine 900 / 900 Other: Urine Color Yellow Dark Crista Urine Appearance Clear Clear Sediment Urine Odor Normal None Voiding Methods Toilet Toilet Laboratory Results WBC 5.37 k/cumm (4.4-10.8) 12/12/18 06:48 RBC 3.45 m/cumm (4.50-6.00) L 12/12/18 06:48 Hgb 10.2 g/dL (13.5-17.5) L 12/12/18 06:48 Hct 31.9 % (40.0-50.0) L 12/12/18 06:48 MCV 92.5 fL (80-95) 12/12/18 06:48 MCH 29.6 pg (27.0-33.0) 12/12/18 06:48 MCHC 32.0 g/dL (32.0-36.0) 12/12/18 06:48 RDW 14.7 % (11.8-14.1) H 12/12/18 06:48 Plt Count 162 x1000/uL (130-400) 12/12/18 06:48 MPV 11.8 fL (8.0-11.0) H 12/12/18 06:48 Immature Gran % See Differential 12/12/18 06:48 Neutrophils % 10.0 12/12/18 06:48 Band Neutrophils % 4.0 % 12/12/18 06:48 Lymphocytes % 44.0 12/12/18 06:48 Atypical Lymphs % 7 12/11/18 20:35 Monocytes % 40.0 12/12/18 06:48 Eosinophils % 1.0 12/12/18 06:48 Basophils % 1.0 12/12/18 06:48 Absolute Neutrophils 0.75 k/cumm (1.2-6.7) L 12/12/18 06:48 Absolute Lymphocytes 2.36 k/cumm (1.2-3.4) 12/12/18 06:48 Absolute Monocytes 2.15 k/cumm (0.11-0.7) H 12/12/18 06:48 Absolute Eosinophils 0.05 k/cumm (0.0-0.7) 12/12/18 06:48 Absolute Basophils 0.05 k/cumm (0.0-0.2) 12/12/18 06:48 Metamyelocytes 1.0 % 12/11/18 20:35 Myelocytes 1.0 % 12/11/18 20:35 Promyelocytes 3 % 12/11/18 20:35 Differential Comment Manual differential 12/12/18 06:48 RBC Morphology See below 12/12/18 06:48 Hypochromasia 2+ 12/11/18 20:35 Poikilocytosis 1+ 12/12/18 06:48 Anisocytosis 1+ 12/11/18 20:35 Microcytosis 1+ 12/12/18 06:48 Sodium 139 mmol/L (136-145) 12/12/18 06:48 Potassium 3.9 mmol/L (3.5-5.1) 12/12/18 06:48 Chloride 103 mmol/L (98-107) 12/12/18 06:48 Carbon Dioxide 27.8 mmol/L (21.0-32.0) 12/12/18 06:48 Anion Gap 8.2 mmol/L (3-11) 12/12/18 06:48 BUN 21 mg/dL (7-18) H 12/12/18 06:48 Creatinine 1.53 mg/dL (0.70-1.30) H 12/12/18 06:48 Estimated GFR/1.73 m2 43.90 (mL/min/1.73m2) 12/12/18 06:48 Glucose 103 mg/dL (70-100) H 12/12/18 06:48 Lactate 0.5 mmol/l (0.6-1.4) L 12/11/18 22:10 Calcium 8.0 mg/dL (8.5-10.1) L 12/12/18 06:48
[2018-12-12] MEDS: Normal Saline Flush 10 ML SYR IVP (20:08)
[2018-12-12] MEDS: Lactated Ringers 1,000 ML 100 ML IV (22:11)
[2018-12-12] MEDS: guaiFENesin/D-METHORPHAN HB 5 ML CUP 10 ML PO (22:34)
[2018-12-12 23:51] VITALS: BP 140/65; PULSE 64; RESP 18; TEMP 37.9; O2SAT 91
[2018-12-13] MEDS: CEFEPIME 2 GM in Normal Saline 100 ML IVPB (01:57)
[2018-12-13 04:03] VITALS: TEMP 37.1
[2018-12-13 07:20] VITALS: BP 148/67; PULSE 60; RESP 17; TEMP 37.2; O2SAT 94
[2018-12-13 08:06] LABS: Abs Immature Grans 0.35 k/cumm (0.0-0.09); Absolute Basophil Count 0.05 k/cumm (0.0-0.2); HCT 29.1 % (40.0-50.0); HGB 9.2 g/dL (13.5-17.5); Mean Corp. HGB Concentration 31.6 g/dL (32.0-36.0); Mean Corpuscular Hemoglobin 29.1 pg (27.0-33.0); Mean Corpuscular Volume 92.1 fL (80-95); Platelet Count 138 x1000/uL (130-400); RBC 3.16 m/cumm (4.50-6.00); RBC Distribution Width 14.7 % (11.8-14.1); White Blood Cell Count 4.81 k/cumm (4.4-10.8)
[2018-12-13] MEDS: Losartan 25 MG TAB 50 MG PO (08:24)
[2018-12-13] MEDS: Acyclovir 400 MG TAB 800 MG PO ×2 (08:24→19:59)
[2018-12-13] MEDS: Benzonatate 200 MG CAP PO ×3 (08:24→19:59)
[2018-12-13] MEDS: Colchicine 0.6 MG TAB PO (08:24)
[2018-12-13] MEDS: Aspirin 81 MG CHEW PO (08:24)
[2018-12-13] MEDS: Magnesium Oxide 400 MG TAB PO ×2 (08:24→16:30)
[2018-12-13] MEDS: Lactated Ringers 1,000 ML 100 ML IV (08:26)
[2018-12-13 08:32] LABS: ALT 15 U/L (12-78); AST 26 U/L (15-37); Albumin 1.9 g/dL (3.4-5.0); Alkaline Phosphatase 49 U/L (46-116); Anion Gap 9.2 mmol/L (3-11); BUN 16 mg/dL (7-18); Bilirubin, Total 0.7 mg/dL (0.2-1.0); CO2 28.8 mmol/L (21.0-32.0); CREATININE 1.13 mg/dL (0.70-1.30); Calcium 8.1 mg/dL (8.5-10.1); Chloride 103 mmol/L (98-107); Glucose 74 mg/dL (70-100); Magnesium 1.4 mg/dL (1.8-2.4); Potassium 3.3 mmol/L (3.5-5.1); Sodium 141 mmol/L (136-145); Total Protein 4.9 g/dL (6.4-8.2)
[2018-12-13 09:06] LABS: Absolute Neutrophil Count 1.59 k/cumm (1.2-6.7)
[2018-12-13 09:07] LABS: Absolute Lymphocyte Count 1.01 k/cumm (1.2-3.4); Absolute Monocyte Count 1.92 k/cumm (0.11-0.7); Diff Comment Manual Differential
[2018-12-13 09:08] LABS: Acanthocytes 1+; Hypochromasia 1+; Ovalocytes 2+
[2018-12-13] MEDS: Potassium Chloride 20 MEQ TABCR 40 MEQ PO ×2 (09:21→16:29)
[2018-12-13] MEDS: MAGNESIUM SULFATE 2 GM/50 ML BAG IVPB (09:21)
[2018-12-13] MEDS: Heparin 5,000 UNITS/ML VIAL 5000 UNITS SC ×3 (10:19→23:09)
[2018-12-13] MEDS: LEVOFLOXACIN 750 MG/150 ML BAG 100 MG IVPB (12:13)
--- NOTE | 2018-12-13 13:05 | PDOC.CMPRO ---
- If Service Date Differs Date of service: 12/13/18 Time of Service: 13:06 Care Management Progress Note S/O: CM met with Ptael at the bedside he is alert and engaged. He reports feeling improved his ANC has improved. BC are pending he continues on IV antibiotics and continued monitoring. Anticipate if he continues to improve discharge in the next 24-48 hours. CM faxed a referral to relocation counselor on aging and [facility] at the request of the patient and his family. A: Patel is a 83 year old male admitted for pneumonia neutropenia and fever with a diagnosis of B-cell lymphoma P: Patel will return home when medically ready anticipate oral antibiotics at time of discharge. Community services to follow-up including options counseling and [facility]. Patel will plan to return home via private car here at [facility]. He will follow-up with primary care and oncology as directed.
--- NOTE | 2018-12-13 13:09 | CMPROGNOTE_ITS ---
- If Service Date Differs Date of service: 12/13/18 Time of Service: 13:06 Care Management Progress Note S/O: CM met with Patel at the bedside he is alert and engaged. He reports feeling improved his ANC has improved. BC are pending he continues on IV antibiotics and continued monitoring. Anticipate if he continues to improve discharge in the next 24-48 hours. CM faxed a referral to residential counselor on aging and [facility] at the request of the patient and his family. A: Patel is a 83 year old male admitted for pneumonia neutropenia and fever with a diagnosis of B-cell lymphoma P: Patel will return home when medically ready anticipate oral antibiotics at time of discharge. Community services to follow-up including options counseling and [facility]. Patel will plan to return home via private car here at [facility]. He will follow-up with primary care and oncology as directed.
[2018-12-13 16:11] VITALS: BP 150/70; PULSE 68; RESP 18; TEMP 36.8; O2SAT 95
--- NOTE | 2018-12-13 18:26 | PGE_ITS ---
Date of Service Date of service: 12/13/18 Time of Service: 18:22 Assessment and Plan (1) Febrile neutropenia: Current visit: Yes Status: Acute In setting of pneumonia. ANC improved without significant intervention, and now normalized. No role for Neopogen at this time. Continue Cefepime, currently day #2, and await final results of blood cultures - currently growing a GNR not yet speciated. Port appears clean and without surrounding cellulitic changes or underlying fluctuance - Vancomycin was discontinued. Monitor blood cultures, Sputum cultures if able to collect. (2) Pneumonia: Current visit: Yes Status: Acute Treatment as above. (3) Diabetes type 2, controlled: Current visit: Yes Status: Chronic Appears diet controlled. Monitor finger stick glucose, and initiate sliding scale if warranted. (4) Diffuse large B cell lymphoma: Current visit: Yes Status: Chronic Currently on Imbruvica and monthly Rituximab. [place] [facility] [place] team at [facility] notified, case discussed - agree with plan. (5) CKD (chronic kidney disease): Current visit: Yes Status: Acute Creatinine appears at baseline. (6) DVT prophylaxis: Current visit: Yes Status: Acute SC Heparin Subjective Patient reports: denies no bowel movement Interval history since last seen: 83-year-old man with past medical history significant for B-cell lymphoma, currently undergoing chemotherapy, admitted from [facility] Emergency Department on 12/11 with a diagnosis of febrile neutropenia and pneumonia. Mr. Gonzales has a past history significant for B-Cell Lymphoma currently on monthy Rituximab and daily Ibrutinib. He also has known gout, BPH, HTN, Dyslipidemia, CKD, and Diabetes. The patient presented to the ED with complaints of 5 days of cough. Work-up revealed evidence of Pneumonia by imaging, and mild leukocytosis with concurrent ANC of 300. The patient was admitted and initiated on Vancomycin and Cefepime. Mr. Gonzales continues to report improvement in his symptoms overall, but not yet at baseline. His white count has normalized, as has his ANC value. One set of blood cultures is now growing a GNR, not yet speciated. He has not had a recurrence of fevers since route contractor of 12/12. No other overnight events reported. Exam Narrative Exam Narrative: General: Patient appears comfortable, AAOX3, NAD Neck: Supple CV: Regular, nontachycardic, S1S2, No rubs, murmurs, or gallops. Pulmonary: Bibasilar crackles without wheezing or rhonchi Abdomen: + Bowel Sounds, soft, nontender, nondistended Vascular: No lower extremity edema Psych: Normal mood and affect. Objective Objective Clinical Data: Abnormal lab results 12/13/18 12/13/18 Range/Units 06:48 06:48 RBC 3.16 L (4.50-6.00) m/cumm Hgb 9.2 L (13.5-17.5) g/dL Hct 29.1 L (40.0-50.0) % MCHC 31.6 L (32.0-36.0) g/dL RDW 14.7 H (11.8-14.1) % MPV 12.0 H (8.0-11.0) fL Absolute Lymphocytes 1.01 L (1.2-3.4) k/cumm Absolute Monocytes 1.92 H (0.11-0.7) k/cumm Potassium 3.3 L (3.5-5.1) mmol/L Calcium 8.1 L (8.5-10.1) mg/dL Magnesium 1.4 L (1.8-2.4) mg/dL Total Protein 4.9 L (6.4-8.2) g/dL Albumin 1.9 L (3.4-5.0) g/dL Vital Signs Temperature 36.8 C 12/13/18 16:11 Temperature Source Tympanic 12/13/18 16:11 Pulse 68 12/13/18 16:11 Pulse Rhythm Regular 12/13/18 10:00 Pulse 73 12/11/18 23:10 Respiratory Rate 18 12/13/18 16:11 Respiratory Effort 12/13/18 10:00 Respiratory Depth Normal 12/13/18 10:00 Respiratory Pattern Normal 12/13/18 10:00 Blood Pressure 150/70 H 12/13/18 16:11 Blood Pressure Mean 70 12/11/18 23:01 Blood Pressure Position Sitting 12/11/18 20:02 Pulse Oximetry 95 12/13/18 16:11 Oxygen Delivery Method Room Air 12/13/18 16:11 Oxygen Flow Rate 0 12/13/18 16:11 Pain Level 0 12/12/18 20:10 Comment 12/12/18 23:51 Intake & Output 12/12/18 12/13/18 12/13/18 23:59 11:59 23:59 Intake Total 2314.167 / 3554.167 1110 / 2400 1290 / 2400 Output Total 900 / 900 850 / 1300 450 / 1300 Balance 1414.167 / 2654.167 260 / 1100 840 / 1100 Intake: IV 1954.167 / 2554.167 1110 / 1920 810 / 1920 Oral 360 / 1000 480 / 480 Output: Urine 900 / 900 850 / 1300 450 / 1300 Other: Urine Color Dark Crista Yellow Yellow Urine Appearance Clear Clear Clear Sediment Urine Odor None None None Voiding Methods Toilet Toilet Toilet Laboratory Results WBC 4.81 k/cumm (4.4-10.8) 12/13/18 06:48 RBC 3.16 m/cumm (4.50-6.00) L 12/13/18 06:48 Hgb 9.2 g/dL (13.5-17.5) L 12/13/18 06:48 Hct 29.1 % (40.0-50.0) L 12/13/18 06:48 MCV 92.1 fL (80-95) 12/13/18 06:48 MCH 29.1 pg (27.0-33.0) 12/13/18 06:48 MCHC 31.6 g/dL (32.0-36.0) L 12/13/18 06:48 RDW 14.7 % (11.8-14.1) H 12/13/18 06:48 Plt Count 138 x1000/uL (130-400) 12/13/18 06:48 MPV 12.0 fL (8.0-11.0) H 12/13/18 06:48 Immature Gran % See Differential 12/13/18 06:48 Neutrophils % 30.0 12/13/18 06:48 Band Neutrophils % 3.0 % 12/13/18 06:48 Lymphocytes % 21.0 12/13/18 06:48 Atypical Lymphs % 7 12/11/18 20:35 Monocytes % 40.0 12/13/18 06:48 Eosinophils % 0.0 12/13/18 06:48 Basophils % 1.0 12/13/18 06:48 Absolute Neutrophils 1.59 k/cumm (1.2-6.7) 12/13/18 06:48 Absolute Lymphocytes 1.01 k/cumm (1.2-3.4) L 12/13/18 06:48 Absolute Monocytes 1.92 k/cumm (0.11-0.7) H 12/13/18 06:48 Absolute Eosinophils 0.00 k/cumm (0.0-0.7) 12/13/18 06:48 Absolute Basophils 0.05 k/cumm (0.0-0.2) 12/13/18 06:48 Metamyelocytes 5.0 % 12/13/18 06:48 Myelocytes 1.0 % 12/11/18 20:35 Promyelocytes 3 % 12/11/18 20:35 Differential Comment Manual differential 12/13/18 06:48 RBC Morphology See below 12/13/18 06:48 Hypochromasia 1+ 12/13/18 06:48 Poikilocytosis 1+ 12/12/18 06:48 Anisocytosis 1+ 12/11/18 20:35 Microcytosis 1+ 12/12/18 06:48 Ovalocytes 2+ 12/13/18 06:48 Acanthocytes (Spur) 1+ 12/13/18 06:48 Sodium 141 mmol/L (136-145) 12/13/18 06:48 Potassium 3.3 mmol/L (3.5-5.1) L 12/13/18 06:48 Chloride 103 mmol/L (98-107) 12/13/18 06:48 Carbon Dioxide 28.8 mmol/L (21.0-32.0) 12/13/18 06:48 Anion Gap 9.2 mmol/L (3-11) 12/13/18 06:48 BUN 16 mg/dL (7-18) 12/13/18 06:48 Creatinine 1.13 mg/dL (0.70-1.30) 12/13/18 06:48 Estimated GFR/1.73 m2 >= 60.00 (mL/min/1.73m2) 12/13/18 06:48 Glucose 74 mg/dL (70-100) 12/13/18 06:48 Lactate 0.5 mmol/l (0.6-1.4) L 12/11/18 22:10 Calcium 8.1 mg/dL (8.5-10.1) L 12/13/18 06:48 Magnesium 1.4 mg/dL (1.8-2.4) L 12/13/18 06:48 Total Bilirubin 0.7 mg/dL (0.2-1.0) 12/13/18 06:48 AST 26 U/L (15-37) 12/13/18 06:48 ALT 15 U/L (12-78) 12/13/18 06:48 Alkaline Phosphatase 49 U/L (46-116) 12/13/18 06:48 Total Protein 4.9 g/dL (6.4-8.2) L 12/13/18 06:48 Albumin 1.9 g/dL (3.4-5.0) L 12/13/18 06:48
[2018-12-13] MEDS: Normal Saline Flush 10 ML SYR IVP (19:58)
[2018-12-13] MEDS: Melatonin 3 MG TAB PO (23:09)
[2018-12-13] MEDS: guaiFENesin/D-METHORPHAN HB 5 ML CUP 10 ML PO (23:09)
[2018-12-14 00:16] VITALS: BP 135/61; PULSE 62; RESP 18; TEMP 37; O2SAT 94
[2018-12-14] MEDS: CEFEPIME 2 GM in Normal Saline 100 ML IVPB (01:44)
[2018-12-14] MEDS: guaiFENesin/D-METHORPHAN HB 5 ML CUP 10 ML PO (05:37)
[2018-12-14 07:36] VITALS: BP 163/77; PULSE 64; RESP 18; TEMP 36.7; O2SAT 95
[2018-12-14 07:53] LABS: Abs Immature Grans 0.58 k/cumm (0.0-0.09); Absolute Eosinophil Count 0.05 k/cumm (0.0-0.7); HCT 29.5 % (40.0-50.0); HGB 9.5 g/dL (13.5-17.5); Mean Corp. HGB Concentration 32.2 g/dL (32.0-36.0); Mean Corpuscular Hemoglobin 29.3 pg (27.0-33.0); Mean Platelet Volume 11.7 fL (8.0-11.0); Platelet Count 165 x1000/uL (130-400); RBC 3.24 m/cumm (4.50-6.00); RBC Distribution Width 14.7 % (11.8-14.1); White Blood Cell Count 4.92 k/cumm (4.4-10.8)
[2018-12-14 08:01] LABS: ALT 33 U/L (12-78); AST 39 U/L (15-37); Albumin 1.9 g/dL (3.4-5.0); Alkaline Phosphatase 56 U/L (46-116); Anion Gap 8.3 mmol/L (3-11); BUN 17 mg/dL (7-18); Bilirubin, Total 0.5 mg/dL (0.2-1.0); CO2 29.7 mmol/L (21.0-32.0); CREATININE 1.09 mg/dL (0.70-1.30); Calcium 8.2 mg/dL (8.5-10.1); Chloride 104 mmol/L (98-107); Glucose 93 mg/dL (70-100); Magnesium 1.7 mg/dL (1.8-2.4); Potassium 3.5 mmol/L (3.5-5.1); Sodium 142 mmol/L (136-145)
[2018-12-14] MEDS: Benzonatate 200 MG CAP PO ×3 (08:13→19:40)
[2018-12-14] MEDS: Acyclovir 400 MG TAB 800 MG PO ×2 (08:13→19:40)
[2018-12-14] MEDS: Colchicine 0.6 MG TAB PO (08:14)
[2018-12-14] MEDS: Losartan 25 MG TAB 50 MG PO (08:14)
[2018-12-14] MEDS: Aspirin 81 MG CHEW PO (08:14)
[2018-12-14] MEDS: Magnesium Oxide 400 MG TAB PO ×3 (08:14→15:59)
[2018-12-14] MEDS: Potassium Chloride 20 MEQ TABCR 40 MEQ PO (08:46)
[2018-12-14] MEDS: Heparin 5,000 UNITS/ML VIAL 5000 UNITS SC ×3 (08:46→23:53)
--- NOTE | 2018-12-14 09:17 | CMPROGNOTE_ITS ---
Care Management Progress Note S/O: Luis continue to be monitored and was excited to visit with a friend who he anticipated coming today. CM will continue to follow; per MD awaiting cultures to determine antibiotic needs prior to discharge. A: Patel is a 83 year old male admitted for pneumonia neutropenia and fever with a diagnosis of B-cell lymphoma P: Patel will return home when medically ready anticipate oral antibiotics at time of discharge. Community services to follow-up including options counseling and [facility]. Patel will plan to return home via private car here at [facility]. He will follow-up with primary care and oncology as directed.
[2018-12-14 09:24] LABS: Absolute Lymphocyte Count 1.82 k/cumm (1.2-3.4); Absolute Monocyte Count 1.33 k/cumm (0.11-0.7); Absolute Neutrophil Count 1.53 k/cumm (1.2-6.7); Acanthocytes 1+; Anisocytosis 1+; Atypical Lymphocytes % 8; Diff Comment Manual Differential
[2018-12-14 09:25] LABS: Ovalocytes 2+; Poikilocytes 1+
--- NOTE | 2018-12-14 15:03 | W.PM.PROGNOT ---
Date of Service Date of service: 12/14/18 Time of Service: 15:03 Assessment and Plan (1) Febrile neutropenia: Current visit: Yes Status: Acute In setting of pneumonia. ANC improved without significant intervention, and now normalized. No role for Neopogen at this time. Continue Cefepime, currently day #3, and await final results of blood cultures - currently growing a GNR not yet speciated one one set from from 12/11. Repeat Blood Cultures on 12/12 with no growth X48 hours. Port appears clean and without surrounding cellulitic changes or underlying fluctuance - Vancomycin was discontinued. Monitor blood cultures, Sputum culture. (2) Pneumonia: Current visit: Yes Status: Acute Treatment as above. (3) Diabetes type 2, controlled: Current visit: Yes Status: Chronic Appears diet controlled. Monitor finger stick glucose, and initiate sliding scale if warranted. (4) Diffuse large B cell lymphoma: Current visit: Yes Status: Chronic Currently on Imbruvica and monthly Rituximab. Follows with Dr. Cristal Oneal from [facility] [place] - Oncology team at [facility] notified, case discussed - agree with plan. (5) CKD (chronic kidney disease): Current visit: Yes Status: Acute Creatinine appears at baseline. (6) DVT prophylaxis: Current visit: Yes Status: Acute SC Heparin Subjective Interval history since last seen: 83-year-old man with past medical history significant for B-cell lymphoma, currently undergoing chemotherapy, admitted from [facility] Emergency Department on 12/11 with a diagnosis of febrile neutropenia and pneumonia. Mr. Gonzales has a past history significant for B-Cell Lymphoma currently on monthy Rituximab and daily Ibrutinib. He also has known gout, BPH, HTN, Dyslipidemia, CKD, and Diabetes. The patient presented to the ED with complaints of 5 days of cough. Work-up revealed evidence of Pneumonia by imaging, and mild leukocytosis with concurrent ANC of 300. The patient was admitted and initiated on Vancomycin and Cefepime. Mr. Gonzales continues to report improvement in his symptoms overall, and today is close to his baseline reportedly. His white count has normalized, as has his ANC value. One set of blood cultures is now growing a GNR, still not speciated. He has not had a recurrence of fevers since visitor services representative of 12/12. No other overnight events reported. Exam Narrative Exam Narrative: General: Patient appears comfortable, AAOX3, NAD Neck: Supple CV: Regular, nontachycardic, S1S2, No rubs, murmurs, or gallops. Pulmonary: Bibasilar crackles without wheezing or rhonchi Abdomen: + Bowel Sounds, soft, nontender, nondistended Vascular: No lower extremity edema Psych: Normal mood and affect. Objective Objective Clinical Data: Abnormal lab results 12/14/18 12/14/18 Range/Units 07:20 07:20 RBC 3.24 L (4.50-6.00) m/cumm Hgb 9.5 L (13.5-17.5) g/dL Hct 29.5 L (40.0-50.0) % RDW 14.7 H (11.8-14.1) % MPV 11.7 H (8.0-11.0) fL Absolute Monocytes 1.33 H (0.11-0.7) k/cumm Calcium 8.2 L (8.5-10.1) mg/dL Magnesium 1.7 L (1.8-2.4) mg/dL AST 39 H (15-37) U/L Total Protein 5.0 L (6.4-8.2) g/dL Albumin 1.9 L (3.4-5.0) g/dL Vital Signs Temperature 36.7 C 12/14/18 07:36 Temperature Source Tympanic 12/14/18 07:36 Pulse 64 12/14/18 07:36 Pulse Rhythm Regular 12/14/18 08:36 Pulse 73 12/11/18 23:10 Respiratory Rate 18 12/14/18 07:36 Respiratory Effort 12/14/18 08:36 Respiratory Depth Normal 12/14/18 08:36 Respiratory Pattern Normal 12/14/18 08:36 Blood Pressure 163/77 H 12/14/18 07:36 Blood Pressure Mean 70 12/11/18 23:01 Blood Pressure Position Sitting 12/11/18 20:02 Pulse Oximetry 95 12/14/18 07:36 Oxygen Delivery Method Room Air 12/14/18 07:36 Oxygen Flow Rate 0 12/14/18 07:36 Pain Level 0 12/12/18 20:10 Comment 12/12/18 23:51 Intake & Output 12/13/18 12/14/18 12/14/18 23:59 11:59 23:59 Intake Total 1290 / 2400 100 / 250 150 / 250 Output Total 450 / 1300 Balance 840 / 1100 100 / 250 150 / 250 Intake: IV 810 / 1920 100 / 100 Oral 480 / 480 150 / 150 Output: Urine 450 / 1300 Other: Urine Color Yellow Urine Appearance Clear Urine Odor None Stool Size Large Stool Characteristics Soft Formed Brown Voiding Methods Toilet Toilet Laboratory Results WBC 4.92 k/cumm (4.4-10.8) 12/14/18 07:20 RBC 3.24 m/cumm (4.50-6.00) L 12/14/18 07:20 Hgb 9.5 g/dL (13.5-17.5) L 12/14/18 07:20 Hct 29.5 % (40.0-50.0) L 12/14/18 07:20 MCV 91.0 fL (80-95) 12/14/18 07:20 MCH 29.3 pg (27.0-33.0) 12/14/18 07:20 MCHC 32.2 g/dL (32.0-36.0) 12/14/18 07:20 RDW 14.7 % (11.8-14.1) H 12/14/18 07:20 Plt Count 165 x1000/uL (130-400) 12/14/18 07:20 MPV 11.7 fL (8.0-11.0) H 12/14/18 07:20 Immature Gran % See Differential 12/14/18 07:20 Neutrophils % 26.0 12/14/18 07:20 Band Neutrophils % 5.0 % 12/14/18 07:20 Lymphocytes % 29.0 12/14/18 07:20 Atypical Lymphs % 8 12/14/18 07:20 Monocytes % 27.0 12/14/18 07:20 Eosinophils % 1.0 12/14/18 07:20 Basophils % 0.0 12/14/18 07:20 Absolute Neutrophils 1.53 k/cumm (1.2-6.7) 12/14/18 07:20 Absolute Lymphocytes 1.82 k/cumm (1.2-3.4) 12/14/18 07:20 Absolute Monocytes 1.33 k/cumm (0.11-0.7) H 12/14/18 07:20 Absolute Eosinophils 0.05 k/cumm (0.0-0.7) 12/14/18 07:20 Absolute Basophils 0.00 k/cumm (0.0-0.2) 12/14/18 07:20 Metamyelocytes 2.0 % 12/14/18 07:20 Myelocytes 2.0 % 12/14/18 07:20 Promyelocytes 3 % 12/11/18 20:35 Differential Comment Manual differential 12/14/18 07:20 RBC Morphology See below 12/14/18 07:20 Hypochromasia 1+ 12/13/18 06:48 Poikilocytosis 1+ 12/14/18 07:20 Anisocytosis 1+ 12/14/18 07:20 Microcytosis 1+ 12/12/18 06:48 Ovalocytes 2+ 12/14/18 07:20 Acanthocytes (Spur) 1+ 12/14/18 07:20 Sodium 142 mmol/L (136-145) 12/14/18 07:20 Potassium 3.5 mmol/L (3.5-5.1) 12/14/18 07:20 Chloride 104 mmol/L (98-107) 12/14/18 07:20 Carbon Dioxide 29.7 mmol/L (21.0-32.0) 12/14/18 07:20 Anion Gap 8.3 mmol/L (3-11) 12/14/18 07:20 BUN 17 mg/dL (7-18) 12/14/18 07:20 Creatinine 1.09 mg/dL (0.70-1.30) 12/14/18 07:20 Estimated GFR/1.73 m2 >= 60.00 (mL/min/1.73m2) 12/14/18 07:20 Glucose 93 mg/dL (70-100) 12/14/18 07:20 Lactate 0.5 mmol/l (0.6-1.4) L 12/11/18 22:10 Calcium 8.2 mg/dL (8.5-10.1) L 12/14/18 07:20 Magnesium 1.7 mg/dL (1.8-2.4) L 12/14/18 07:20 Total Bilirubin 0.5 mg/dL (0.2-1.0) 12/14/18 07:20 AST 39 U/L (15-37) H 12/14/18 07:20 ALT 33 U/L (12-78) 12/14/18 07:20 Alkaline Phosphatase 56 U/L (46-116) 12/14/18 07:20 Total Protein 5.0 g/dL (6.4-8.2) L 12/14/18 07:20 Albumin 1.9 g/dL (3.4-5.0) L 12/14/18 07:20 Vancomycin Trough Cancelled 12/13/18 20:00 Path Cons Comment See comment 12/11/18 20:35
--- NOTE | 2018-12-14 15:07 | PGE_ITS ---
Date of Service Date of service: 12/14/18 Time of Service: 15:03 Assessment and Plan (1) Febrile neutropenia: Current visit: Yes Status: Acute In setting of pneumonia. ANC improved without significant intervention, and now normalized. No role for Neopogen at this time. Continue Cefepime, currently day #3, and await final results of blood cultures - currently growing a GNR not yet speciated one one set from from 12/11. Repeat Blood Cultures on 12/12 with no growth X48 hours. Port appears clean and without surrounding cellulitic changes or underlying fluctuance - Vancomycin was di scontinued. Monitor blood cultures, Sputum culture. (2) Pneumonia: Current visit: Yes Status: Acute Treatment as above. (3) Diabetes type 2, controlled: Current visit: Yes Status: Chronic Appears diet controlled. Monitor finger stick glucose, and initiate sliding scale if warranted. (4) Diffuse large B cell lymphoma: Current visit: Yes Status: Chronic Currently on Imbruvica and monthly Rituximab. Follows with Dr. Cristal Oneal from [facility] – [place] - Oncology team at [facility] notified, case discussed - agree with plan. (5) CKD (chronic kidney disease): Current visit: Yes Status: Acute Creatinine appears at baseline. (6) DVT prophylaxis: Current visit: Yes Status: Acute SC Heparin Subjective Interval history since last seen: 83-year-old man with past medical history significant for B-cell lymphoma, currently undergoing chemotherapy, admitted from [facility] Emergency Department on 12/11 with a diagnosis of febrile neutropenia and pneumonia. Mr. Gonzales has a past history significant for B-Cell Lymphoma currently on monthy Rituximab and daily Ibrutinib. He also has known gout, BPH, HTN, Dyslipidemia, CKD, and Diabetes. The patient presented to the ED with complaints of 5 days of cough. Work-up revealed evidence of Pneumonia by imaging, and mild leukocytosis with concurrent ANC of 300. The patient was admitted and initiated on Vancomycin and Cefepime. Mr. Gonzales continues to report improvement in his symptoms overall, and today is close to his baseline reportedly. His white count has normalized, as has his ANC value. One set of blood cultures is now growing a GNR, still not speciated. He has not had a recurrence of fevers since animal keeper head of 12/12. No other overnight events reported. Exam Narrative Exam Narrative: General: Patient appears comfortable, AAOX3, NAD Neck: Supple CV: Regular, nontachycardic, S1S2, No rubs, murmurs, or gallops. Pulmonary: Bibasilar crackles without wheezing or rhonchi Abdomen: + Bowel Sounds, soft, nontender, nondistended Vascular: No lower extremity edema Psych: Normal mood and affect. Objective Objective Clinical Data: Abnormal lab results 12/14/18 12/14/18 Range/Units 07:20 07:20 RBC 3.24 L (4.50-6.00) m/cumm Hgb 9.5 L (13.5-17.5) g/dL Hct 29.5 L (40.0-50.0) % RDW 14.7 H (11.8-14.1) % MPV 11.7 H (8.0-11.0) fL Absolute Monocytes 1.33 H (0.11-0.7) k/cumm Calcium 8.2 L (8.5-10.1) mg/dL Magnesium 1.7 L (1.8-2.4) mg/dL AST 39 H (15-37) U/L Total Protein 5.0 L (6.4-8.2) g/dL Albumin 1.9 L (3.4-5.0) g/dL Vital Signs Temperature 36.7 C 12/14/18 07:36 Temperature Source Tympanic 12/14/18 07:36 Pulse 64 12/14/18 07:36 Pulse Rhythm Regular 12/14/18 08:36 Pulse 73 12/11/18 23:10 Respiratory Rate 18 12/14/18 07:36 Respiratory Effort 12/14/18 08:36 Respiratory Depth Normal 12/14/18 08:36 Respiratory Pattern Normal 12/14/18 08:36 Blood Pressure 163/77 H 12/14/18 07:36 Blood Pressure Mean 70 12/11/18 23:01 Blood Pressure Position Sitting 12/11/18 20:02 Pulse Oximetry 95 12/14/18 07:36 Oxygen Delivery Method Room Air 12/14/18 07:36 Oxygen Flow Rate 0 12/14/18 07:36 Pain Level 0 12/12/18 20:10 Comment 12/12/18 23:51 Intake & Output 12/13/18 12/14/18 12/14/18 23:59 11:59 23:59 Intake Total 1290 / 2400 100 / 250 150 / 250 Output Total 450 / 1300 Balance 840 / 1100 100 / 250 150 / 250 Intake: IV 810 / 1920 100 / 100 Oral 480 / 480 150 / 150 Output: Urine 450 / 1300 Other: Urine Color Yellow Urine Appearance Clear Urine Odor None Stool Size Large Stool Characteristics Soft Formed Brown Voiding Methods Toilet Toilet Laboratory Results WBC 4.92 k/cumm (4.4-10.8) 12/14/18 07:20 RBC 3.24 m/cumm (4.50-6.00) L 12/14/18 07:20 Hgb 9.5 g/dL (13.5-17.5) L 12/14/18 07:20 Hct 29.5 % (40.0-50.0) L 12/14/18 07:20 MCV 91.0 fL (80-95) 12/14/18 07:20 MCH 29.3 pg (27.0-33.0) 12/14/18 07:20 MCHC 32.2 g/dL (32.0-36.0) 12/14/18 07:20 RDW 14.7 % (11.8-14.1) H 12/14/18 07:20 Plt Count 165 x1000/uL (130-400) 12/14/18 07:20 MPV 11.7 fL (8.0-11.0) H 12/14/18 07:20 Immature Gran % See Differential 12/14/18 07:20 Neutrophils % 26.0 12/14/18 07:20 Band Neutrophils % 5.0 % 12/14/18 07:20 Lymphocytes % 29.0 12/14/18 07:20 Atypical Lymphs % 8 12/14/18 07:20 Monocytes % 27.0 12/14/18 07:20 Eosinophils % 1.0 12/14/18 07:20 Basophils % 0.0 12/14/18 07:20 Absolute Neutrophils 1.53 k/cumm (1.2-6.7) 12/14/18 07:20 Absolute Lymphocytes 1.82 k/cumm (1.2-3.4) 12/14/18 07:20 Absolute Monocytes 1.33 k/cumm (0.11-0.7) H 12/14/18 07:20 Absolute Eosinophils 0.05 k/cumm (0.0-0.7) 12/14/18 07:20 Absolute Basophils 0.00 k/cumm (0.0-0.2) 12/14/18 07:20 Metamyelocytes 2.0 % 12/14/18 07:20 Myelocytes 2.0 % 12/14/18 07:20 Promyelocytes 3 % 12/11/18 20:35 Differential Comment Manual differential 12/14/18 07:20 RBC Morphology See below 12/14/18 07:20 Hypochromasia 1+ 12/13/18 06:48 Poikilocytosis 1+ 12/14/18 07:20 Anisocytosis 1+ 12/14/18 07:20 Microcytosis 1+ 12/12/18 06:48 Ovalocytes 2+ 12/14/18 07:20 Acanthocytes (Spur) 1+ 12/14/18 07:20 Sodium 142 mmol/L (136-145) 12/14/18 07:20 Potassium 3.5 mmol/L (3.5-5.1) 12/14/18 07:20 Chloride 104 mmol/L (98-107) 12/14/18 07:20 Carbon Dioxide 29.7 mmol/L (21.0-32.0) 12/14/18 07:20 Anion Gap 8.3 mmol/L (3-11) 12/14/18 07:20 BUN 17 mg/dL (7-18) 12/14/18 07:20 Creatinine 1.09 mg/dL (0.70-1.30) 12/14/18 07:20 Estimated GFR/1.73 m2 >= 60.00 (mL/min/1.73m2) 12/14/18 07:20 Glucose 93 mg/dL (70-100) 12/14/18 07:20 Lactate 0.5 mmol/l (0.6-1.4) L 12/11/18 22:10 Calcium 8.2 mg/dL (8.5-10.1) L 12/14/18 07:20 Magnesium 1.7 mg/dL (1.8-2.4) L 12/14/18 07:20 Total Bilirubin 0.5 mg/dL (0.2-1.0) 12/14/18 07:20 AST 39 U/L (15-37) H 12/14/18 07:20 ALT 33 U/L (12-78) 12/14/18 07:20 Alkaline Phosphatase 56 U/L (46-116) 12/14/18 07:20 Total Protein 5.0 g/dL (6.4-8.2) L 12/14/18 07:20 Albumin 1.9 g/dL (3.4-5.0) L 12/14/18 07:20 Vancomycin Trough Cancelled 12/13/18 20:00 Path Cons Comment See comment 12/11/18 20:35
[2018-12-14] MEDS: Potassium Chloride 10 MEQ TABCR PO (15:59)
[2018-12-14 16:45] VITALS: BP 146/69; PULSE 64; RESP 18; TEMP 37.3; O2SAT 93
[2018-12-14 20:18] VITALS: BP 164/71; PULSE 68; RESP 17; TEMP 37.4; O2SAT 96
[2018-12-15] VITALS (7 sets, daily range): BP systolic 125–164; BP diastolic 67–82; PULSE 60–67; RESP 16–20; TEMP 37.3–37.7; O2SAT 93–98
[2018-12-15] MEDS: CEFEPIME 2 GM in Normal Saline 100 ML IVPB (02:04)
[2018-12-15] MEDS: Normal Saline Flush 10 ML SYR IVP ×2 (02:05→09:33)
[2018-12-15 07:21] LABS: HCT 29.9 % (40.0-50.0); HGB 9.6 g/dL (13.5-17.5); Mean Corp. HGB Concentration 32.1 g/dL (32.0-36.0); Mean Corpuscular Volume 90.3 fL (80-95); Mean Platelet Volume 11.6 fL (8.0-11.0); Platelet Count 175 x1000/uL (130-400); RBC 3.31 m/cumm (4.50-6.00); RBC Distribution Width 14.8 % (11.8-14.1); White Blood Cell Count 5.53 k/cumm (4.4-10.8)
[2018-12-15 07:38] LABS: ALT 33 U/L (12-78); AST 32 U/L (15-37); Albumin 1.9 g/dL (3.4-5.0); Alkaline Phosphatase 57 U/L (46-116); Anion Gap 7.2 mmol/L (3-11); BUN 17 mg/dL (7-18); Bilirubin, Total 0.5 mg/dL (0.2-1.0); CO2 29.8 mmol/L (21.0-32.0); CREATININE 1.16 mg/dL (0.70-1.30); Calcium 8.2 mg/dL (8.5-10.1); Chloride 103 mmol/L (98-107); Glucose 95 mg/dL (70-100); Magnesium 1.5 mg/dL (1.8-2.4); Potassium 3.4 mmol/L (3.5-5.1); Sodium 140 mmol/L (136-145)
[2018-12-15] MEDS: Heparin 5,000 UNITS/ML VIAL 5000 UNITS SC ×2 (08:17→15:42)
[2018-12-15] MEDS: Acyclovir 400 MG TAB 800 MG PO ×2 (08:18→19:45)
[2018-12-15] MEDS: Benzonatate 200 MG CAP PO ×3 (08:19→19:45)
[2018-12-15] MEDS: Magnesium Oxide 400 MG TAB PO (08:19)
[2018-12-15] MEDS: Colchicine 0.6 MG TAB PO (08:19)
[2018-12-15] MEDS: Losartan 25 MG TAB 50 MG PO (08:20)
[2018-12-15] MEDS: Aspirin 81 MG CHEW PO (08:20)
[2018-12-15 08:23] LABS: Absolute Neutrophil Count 2.65 k/cumm (1.2-6.7)
[2018-12-15 08:25] LABS: Absolute Lymphocyte Count 2.27 k/cumm (1.2-3.4); Absolute Monocyte Count 0.55 k/cumm (0.11-0.7)
[2018-12-15 08:29] LABS: Diff Comment Manual Differential
[2018-12-15 08:56] LABS: Acanthocytes 2+; Polychromasia Present
[2018-12-15 08:57] LABS: Poikilocytes 2+
[2018-12-15] MEDS: Potassium Chloride 20 MEQ TABCR 40 MEQ PO (09:12)
[2018-12-15] MEDS: MAGNESIUM SULFATE 2 GM/50 ML BAG IVPB (09:13)
--- NOTE | 2018-12-15 09:49 | PDOC.CMPRO ---
- If Service Date Differs Date of service: 12/15/18 Time of Service: 09:50 Care Management Progress Note S/O: A: Patel is a 83 year old male admitted for pneumonia neutropenia and fever with a diagnosis of B-cell lymphoma P: Patel will return home when medically ready anticipate oral antibiotics at time of discharge. Community services to follow-up including options counseling and [facility]. Patel will plan to return home via private car here at [facility]. He will follow-up with primary care and oncology as directed.
[2018-12-15] MEDS: metroNIDAZOLE 500 MG TAB PO ×2 (11:49→19:45)
--- NOTE | 2018-12-15 14:34 | PDOC.CMDIS ---
- If Service Date Differs Date of service: 12/15/18 Time of Service: 14:34 LACE Index Scoring Tool - Questions: Length of Stay (in days): 4 - 6 Acuity (Admit via E.D.?): Yes Comorbidities: Diabetes w/o Complication, Any Tumor E.D. Visits: 2 - Answers: Total Score: 12 Risk of Readmission: High Risk Care Management Discharge Reason for Hospitalization: Febrile Neutropenia, Pneumonia Discharge Plan: Patel will return home with no services. He will F/U with PCP, [facility], and plan of care as prescribed. Referral has been faxed to [facility] and [facility] for options counseling. Patel will drive himself home today. Patient/Family Education Needs: Review DC instructions, any limitations, and discuss 'Ask Me Three'
[2018-12-15] MEDS: Potassium Chloride 20 MEQ TABCR PO (15:42)
--- NOTE | 2018-12-15 15:57 | W.PM.PROGNOT ---
Date of Service Date of service: 12/15/18 Time of Service: 15:57 Assessment and Plan (1) Febrile neutropenia: Current visit: Yes Status: Acute In setting of pneumonia. ANC improved without significant intervention, and now normalized. No role for Neopogen at this time. Was being treated with Cefepime, discontinued after 4 days of therapy as blood culture is growing a Bacteroides Fragilis from one set collected 12/11. Repeat Blood Cultures on 12/12 with no growth X72 hours. Port appears clean and without surrounding cellulitic changes or underlying fluctuance - Vancomycin was discontinued. Given evidence of B. Fragilis case was discussed with ID at [facility] - antibiotic regimen changed to combination Levofloxacin and Metronidazole for a planned 14 day course of therapy. Monitor blood cultures, Sputum culture unrevealing. Plan will be for observation over the next 1-2 days to ensure stability and improvement in patient's condition prior to discharge, as well as with close monitoring of vitals and labs. (2) Pneumonia: Current visit: Yes Status: Acute Treatment as above. (3) Diabetes type 2, controlled: Current visit: Yes Status: Chronic Appears diet controlled. Monitor finger stick glucose, and initiate sliding scale if warranted. (4) Diffuse large B cell lymphoma: Current visit: Yes Status: Chronic Currently on Imbruvica and monthly Rituximab. Follows with Dr. Cristal Oneal from [facility] [place] - Oncology team at [facility] notified, case discussed - agree with plan. (5) CKD (chronic kidney disease): Current visit: Yes Status: Acute Creatinine appears at baseline. (6) DVT prophylaxis: Current visit: Yes Status: Acute SC Heparin Subjective Interval history since last seen: 83-year-old man with past medical history significant for B-cell lymphoma, currently undergoing chemotherapy, admitted from [facility] Emergency Department on 12/11 with a diagnosis of febrile neutropenia and pneumonia. Mr. Gonzales has a past history significant for B-Cell Lymphoma currently on monthy Rituximab and daily Ibrutinib. He also has known gout, BPH, HTN, Dyslipidemia, CKD, and Diabetes. The patient presented to the ED with complaints of 5 days of cough. Work-up revealed evidence of Pneumonia by imaging, and mild leukocytosis with concurrent ANC of 300. The patient was admitted and initiated on Vancomycin and Cefepime. Mr. Gonzales continues to report improvement in his symptoms overall, and today is close to his baseline. His white count remains normal, as does his ANC value. One set of blood cultures is now growing a GNR, now speciated to Bacteroides Fragilis. He has not had a recurrence of fevers since magnetic healer of 12/12. No other overnight events reported. Exam Narrative Exam Narrative: General: Patient appears comfortable, AAOX3, NAD Neck: Supple CV: Regular, nontachycardic, S1S2, No rubs, murmurs, or gallops. Pulmonary: Bibasilar crackles improved, without wheezing or rhonchi Abdomen: + Bowel Sounds, soft, nontender, nondistended Vascular: No lower extremity edema Psych: Normal mood and affect. Objective Objective Clinical Data: Abnormal lab results 12/15/18 12/15/18 Range/Units 06:15 06:15 RBC 3.31 L (4.50-6.00) m/cumm Hgb 9.6 L (13.5-17.5) g/dL Hct 29.9 L (40.0-50.0) % RDW 14.8 H (11.8-14.1) % MPV 11.6 H (8.0-11.0) fL Potassium 3.4 L (3.5-5.1) mmol/L Calcium 8.2 L (8.5-10.1) mg/dL Magnesium 1.5 L (1.8-2.4) mg/dL Total Protein 5.0 L (6.4-8.2) g/dL Albumin 1.9 L (3.4-5.0) g/dL Vital Signs Temperature 37.7 C H 12/15/18 11:22 Temperature Source Tympanic 12/15/18 11:22 Pulse 67 12/15/18 11:22 Pulse Rhythm Regular 12/15/18 07:24 Pulse 73 12/11/18 23:10 Respiratory Rate 20 12/15/18 11:22 Respiratory Effort 12/15/18 07:46 Respiratory Depth Normal 12/15/18 07:24 Respiratory Pattern Normal 12/15/18 07:24 Blood Pressure 164/72 H 12/15/18 11:22 Blood Pressure Mean 70 12/11/18 23:01 Blood Pressure Position Sitting 12/11/18 20:02 Pulse Oximetry 93 L 12/15/18 11:22 Oxygen Delivery Method Room Air 12/15/18 11:22 Oxygen Flow Rate 0 12/15/18 11:22 Pain Level 0 12/15/18 11:22 Comment 12/12/18 23:51 Intake & Output 12/14/18 12/15/18 12/15/18 23:59 11:59 23:59 Intake Total 750 / 850 870 / 1110 240 / 1110 Balance 750 / 850 870 / 1110 240 / 1110 Intake: IV 150 / 150 Oral 750 / 750 720 / 960 240 / 960 Other: Urine Color Yellow Yellow Straw Urine Appearance Clear Clear Urine Odor Normal Normal Stool Size Large Stool Characteristics Soft Formed Brown Voiding Methods Toilet Toilet Laboratory Results WBC 5.53 k/cumm (4.4-10.8) 12/15/18 06:15 RBC 3.31 m/cumm (4.50-6.00) L 12/15/18 06:15 Hgb 9.6 g/dL (13.5-17.5) L 12/15/18 06:15 Hct 29.9 % (40.0-50.0) L 12/15/18 06:15 MCV 90.3 fL (80-95) 12/15/18 06:15 MCH 29.0 pg (27.0-33.0) 12/15/18 06:15 MCHC 32.1 g/dL (32.0-36.0) 12/15/18 06:15 RDW 14.8 % (11.8-14.1) H 12/15/18 06:15 Plt Count 175 x1000/uL (130-400) 12/15/18 06:15 MPV 11.6 fL (8.0-11.0) H 12/15/18 06:15 Immature Gran % See Differential 12/15/18 06:15 Neutrophils % 21.0 12/15/18 06:15 Band Neutrophils % 27.0 % 12/15/18 06:15 Lymphocytes % 41.0 12/15/18 06:15 Atypical Lymphs % 8 12/14/18 07:20 Monocytes % 10.0 12/15/18 06:15 Eosinophils % 0.0 12/15/18 06:15 Basophils % 0.0 12/15/18 06:15 Absolute Neutrophils 2.65 k/cumm (1.2-6.7) 12/15/18 06:15 Absolute Lymphocytes 2.27 k/cumm (1.2-3.4) 12/15/18 06:15 Absolute Monocytes 0.55 k/cumm (0.11-0.7) 12/15/18 06:15 Absolute Eosinophils 0.00 k/cumm (0.0-0.7) 12/15/18 06:15 Absolute Basophils 0.00 k/cumm (0.0-0.2) 12/15/18 06:15 Metamyelocytes 2.0 % 12/14/18 07:20 Myelocytes 1.0 % 12/15/18 06:15 Promyelocytes 3 % 12/11/18 20:35 Differential Comment Manual differential 12/15/18 06:15 RBC Morphology See below 12/15/18 06:15 Polychromasia Present 12/15/18 06:15 Hypochromasia 1+ 12/13/18 06:48 Poikilocytosis 2+ 12/15/18 06:15 Anisocytosis 1+ 12/14/18 07:20 Microcytosis 1+ 12/12/18 06:48 Ovalocytes 2+ 12/14/18 07:20 Acanthocytes (Spur) 2+ 12/15/18 06:15 Sodium 140 mmol/L (136-145) 12/15/18 06:15 Potassium 3.4 mmol/L (3.5-5.1) L 12/15/18 06:15 Chloride 103 mmol/L (98-107) 12/15/18 06:15 Carbon Dioxide 29.8 mmol/L (21.0-32.0) 12/15/18 06:15 Anion Gap 7.2 mmol/L (3-11) 12/15/18 06:15 BUN 17 mg/dL (7-18) 12/15/18 06:15 Creatinine 1.16 mg/dL (0.70-1.30) 12/15/18 06:15 Estimated GFR/1.73 m2 >= 60.00 (mL/min/1.73m2) 12/15/18 06:15 Glucose 95 mg/dL (70-100) 12/15/18 06:15 Lactate 0.5 mmol/l (0.6-1.4) L 12/11/18 22:10 Calcium 8.2 mg/dL (8.5-10.1) L 12/15/18 06:15 Magnesium 1.5 mg/dL (1.8-2.4) L 12/15/18 06:15 Total Bilirubin 0.5 mg/dL (0.2-1.0) 12/15/18 06:15 AST 32 U/L (15-37) 12/15/18 06:15 ALT 33 U/L (12-78) 12/15/18 06:15 Alkaline Phosphatase 57 U/L (46-116) 12/15/18 06:15 Total Protein 5.0 g/dL (6.4-8.2) L 12/15/18 06:15 Albumin 1.9 g/dL (3.4-5.0) L 12/15/18 06:15 Vancomycin Trough Cancelled 12/13/18 20:00 Path Cons Comment See comment 12/11/18 20:35 Objective Narrative Objective Narrative: Blood Culture ( Age => 12 Yrs) Preliminary 12/15/18-0855 12/13/18 Anaerobic bottle positive; gram stain shows GRAM NEGATIVE RODS.Gram stain results called to and read back from Ellen Hills RN at 1235 by LAB.[email or web address] 12/14/18 ANAEROBIC GNR ISOLATED FROM ANAEROBIC BOTTLE. Reported results to and read back from TESSY SHANNON 12/14/18 at 0921 by LAB.CAHK 12/15/18 BACTERIODES FRAGILIS GROUP ISOLATED FROM ANAEROBIC BOTTLE. Reported results to and read back from RIKA CASEY 12/15/18 at 0855 by LAB.CAHK Organism 1 BACTEROIDES FRAGILIS GROUP
--- NOTE | 2018-12-15 16:05 | PGE_ITS ---
Date of Service Date of service: 12/15/18 Time of Service: 15:57 Assessment and Plan (1) Febrile neutropenia: Current visit: Yes Status: Acute In setting of pneumonia. ANC improved without significant intervention, and now normalized. No role for Neopogen at this time. Was being treated with Cefepime, discontinued after 4 days of therapy as blood culture is growing a Bacteroides Fragilis from one set collected 12/11. Repeat Blood Cultures on 12/12 with no growth X72 hours. Port appears clean and without surrounding cellulitic changes or underlying fluctuance - Vancomycin was dis continued. Given evidence of B. Fragilis case was discussed with ID at [facility] - antibiotic regimen changed to combination Levofloxacin and Metronidazole for a planned 14 day course of therapy. Monitor blood cultures, Sputum culture unrevealing. Plan will be for observation over the next 1-2 days to ensure stability and improvement in patient's condition prior to discharge, as well as with close m onitoring of vitals and labs. (2) Pneumonia: Current visit: Yes Status: Acute Treatment as above. (3) Diabetes type 2, controlled: Current visit: Yes Status: Chronic Appears diet controlled. Monitor finger stick glucose, and initiate sliding scale if warranted. (4) Diffuse large B cell lymphoma: Current visit: Yes Status: Chronic Currently on Imbruvica and monthly Rituximab. [place] [facility] [place] team at [facility] notified, case discussed - agree with plan. (5) CKD (chronic kidney disease): Current visit: Yes Status: Acute Creatinine appears at baseline. (6) DVT prophylaxis: Current visit: Yes Status: Acute SC Heparin Subjective Interval history since last seen: 83-year-old man with past medical history significant for B-cell lymphoma, currently undergoing chemotherapy, admitted from [facility] Emergency Department on 12/11 with a diagnosis of febrile neutropenia and pneumonia. Mr. Gonzales has a past history significant for B-Cell Lymphoma currently on monthy Rituximab and daily Ibrutinib. He also has known gout, BPH, HTN, Dyslipidemia, CKD, and Diabetes. The patient presented to the ED with complaints of 5 days of cough. Work-up revealed evidence of Pneumonia by imaging, and mild leukocytosis with concurrent ANC of 300. The patient was admitted and initiated on Vancomycin and Cefepime. Mr. Gonzales continues to report improvement in his symptoms overall, and today is close to his baseline. His white count remains normal, as does his ANC value. One set of blood cultures is now growing a GNR, now speciated to Bacteroides Fragilis. 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 No other overnight events reported. Exam Narrative Exam Narrative: General: Patient appears comfortable, AAOX3, NAD Neck: Supple CV: Regular, nontachycardic, S1S2, No rubs, murmurs, or gallops. Pulmonary: Bibasilar crackles improved, without wheezing or rhonchi Abdomen: + Bowel Sounds, soft, nontender, nondistended Vascular: No lower extremity edema Psych: Normal mood and affect. Objective Objective Clinical Data: Abnormal lab results 12/15/18 12/15/18 Range/Units 06:15 06:15 RBC 3.31 L (4.50-6.00) m/cumm Hgb 9.6 L (13.5-17.5) g/dL Hct 29.9 L (40.0-50.0) % RDW 14.8 H (11.8-14.1) % MPV 11.6 H (8.0-11.0) fL Potassium 3.4 L (3.5-5.1) mmol/L Calcium 8.2 L (8.5-10.1) mg/dL Magnesium 1.5 L (1.8-2.4) mg/dL Total Protein 5.0 L (6.4-8.2) g/dL Albumin 1.9 L (3.4-5.0) g/dL Vital Signs Temperature 37.7 C H 12/15/18 11:22 Temperature Source Tympanic 12/15/18 11:22 Pulse 67 12/15/18 11:22 Pulse Rhythm Regular 12/15/18 07:24 Pulse 73 12/11/18 23:10 Respiratory Rate 20 12/15/18 11:22 Respiratory Effort 12/15/18 07:46 Respiratory Depth Normal 12/15/18 07:24 Respiratory Pattern Normal 12/15/18 07:24 Blood Pressure 164/72 H 12/15/18 11:22 Blood Pressure Mean 70 12/11/18 23:01 Blood Pressure Position Sitting 12/11/18 20:02 Pulse Oximetry 93 L 12/15/18 11:22 Oxygen Delivery Method Room Air 12/15/18 11:22 Oxygen Flow Rate 0 12/15/18 11:22 Pain Level 0 12/15/18 11:22 Comment 12/12/18 23:51 Intake & Output 12/14/18 12/15/18 12/15/18 23:59 11:59 23:59 Intake Total 750 / 850 870 / 1110 240 / 1110 Balance 750 / 850 870 / 1110 240 / 1110 Intake: IV 150 / 150 Oral 750 / 750 720 / 960 240 / 960 Other: Urine Color Yellow Yellow Straw Urine Appearance Clear Clear Urine Odor Normal Normal Stool Size Large Stool Characteristics Soft Formed Brown Voiding Methods Toilet Toilet Laboratory Results WBC 5.53 k/cumm (4.4-10.8) 12/15/18 06:15 RBC 3.31 m/cumm (4.50-6.00) L 12/15/18 06:15 Hgb 9.6 g/dL (13.5-17.5) L 12/15/18 06:15 Hct 29.9 % (40.0-50.0) L 12/15/18 06:15 MCV 90.3 fL (80-95) 12/15/18 06:15 MCH 29.0 pg (27.0-33.0) 12/15/18 06:15 MCHC 32.1 g/dL (32.0-36.0) 12/15/18 06:15 RDW 14.8 % (11.8-14.1) H 12/15/18 06:15 Plt Count 175 x1000/uL (130-400) 12/15/18 06:15 MPV 11.6 fL (8.0-11.0) H 12/15/18 06:15 Immature Gran % See Differential 12/15/18 06:15 Neutrophils % 21.0 12/15/18 06:15 Band Neutrophils % 27.0 % 12/15/18 06:15 Lymphocytes % 41.0 12/15/18 06:15 Atypical Lymphs % 8 12/14/18 07:20 Monocytes % 10.0 12/15/18 06:15 Eosinophils % 0.0 12/15/18 06:15 Basophils % 0.0 12/15/18 06:15 Absolute Neutrophils 2.65 k/cumm (1.2-6.7) 12/15/18 06:15 Absolute Lymphocytes 2.27 k/cumm (1.2-3.4) 12/15/18 06:15 Absolute Monocytes 0.55 k/cumm (0.11-0.7) 12/15/18 06:15 Absolute Eosinophils 0.00 k/cumm (0.0-0.7) 12/15/18 06:15 Absolute Basophils 0.00 k/cumm (0.0-0.2) 12/15/18 06:15 Metamyelocytes 2.0 % 12/14/18 07:20 Myelocytes 1.0 % 12/15/18 06:15 Promyelocytes 3 % 12/11/18 20:35 Differential Comment Manual differential 12/15/18 06:15 RBC Morphology See below 12/15/18 06:15 Polychromasia Present 12/15/18 06:15 Hypochromasia 1+ 12/13/18 06:48 Poikilocytosis 2+ 12/15/18 06:15 Anisocytosis 1+ 12/14/18 07:20 Microcytosis 1+ 12/12/18 06:48 Ovalocytes 2+ 12/14/18 07:20 Acanthocytes (Spur) 2+ 12/15/18 06:15 Sodium 140 mmol/L (136-145) 12/15/18 06:15 Potassium 3.4 mmol/L (3.5-5.1) L 12/15/18 06:15 Chloride 103 mmol/L (98-107) 12/15/18 06:15 Carbon Dioxide 29.8 mmol/L (21.0-32.0) 12/15/18 06:15 Anion Gap 7.2 mmol/L (3-11) 12/15/18 06:15 BUN 17 mg/dL (7-18) 12/15/18 06:15 Creatinine 1.16 mg/dL (0.70-1.30) 12/15/18 06:15 Estimated GFR/1.73 m2 >= 60.00 (mL/min/1.73m2) 12/15/18 06:15 Glucose 95 mg/dL (70-100) 12/15/18 06:15 Lactate 0.5 mmol/l (0.6-1.4) L 12/11/18 22:10 Calcium 8.2 mg/dL (8.5-10.1) L 12/15/18 06:15 Magnesium 1.5 mg/dL (1.8-2.4) L 12/15/18 06:15 Total Bilirubin 0.5 mg/dL (0.2-1.0) 12/15/18 06:15 AST 32 U/L (15-37) 12/15/18 06:15 ALT 33 U/L (12-78) 12/15/18 06:15 Alkaline Phosphatase 57 U/L (46-116) 12/15/18 06:15 Total Protein 5.0 g/dL (6.4-8.2) L 12/15/18 06:15 Albumin 1.9 g/dL (3.4-5.0) L 12/15/18 06:15 Vancomycin Trough Cancelled 12/13/18 20:00 Path Cons Comment See comment 12/11/18 20:35 Objective Narrative Objective Narrative: Blood Culture ( Age => 12 Yrs) Preliminary 12/15/18-0855 12/13/18 Anaerobic bottle positive; gram stain shows GRAM NEGATIVE RODS.Gram stain results called to and read back from Ellen Hills RN at 1235 by LAB.[email or web address] 12/14/18 ANAEROBIC GNR ISOLATED FROM ANAEROBIC BOTTLE. Reported results to and read back from TESSY SHANNON 12/14/18 at 0921 by LAB.CAHK 12/15/18 BACTERIODES FRAGILIS GROUP ISOLATED FROM ANAEROBIC BOTTLE. Reported results to and read back from RIKA CASEY 12/15/18 at 0855 by [email or web address] Organism 1 BACTEROIDES FRAGILIS GROUP
[2018-12-16 01:30] VITALS: BP 140/70; PULSE 60; RESP 16; TEMP 36.9; O2SAT 94
[2018-12-16] MEDS: Heparin 5,000 UNITS/ML VIAL 5000 UNITS SC ×3 (01:30→16:29)
[2018-12-16] MEDS: guaiFENesin/D-METHORPHAN HB 5 ML CUP 10 ML PO (01:30)
[2018-12-16] MEDS: metroNIDAZOLE 500 MG TAB PO ×3 (04:50→20:07)
[2018-12-16 07:17] LABS: Abs Immature Grans 0.52 k/cumm (0.0-0.09); HCT 30.7 % (40.0-50.0); HGB 9.9 g/dL (13.5-17.5); Mean Corp. HGB Concentration 32.2 g/dL (32.0-36.0); Mean Corpuscular Hemoglobin 28.9 pg (27.0-33.0); Mean Corpuscular Volume 89.8 fL (80-95); Mean Platelet Volume 11.5 fL (8.0-11.0); Platelet Count 201 x1000/uL (130-400); RBC 3.42 m/cumm (4.50-6.00); RBC Distribution Width 14.9 % (11.8-14.1); White Blood Cell Count 6.97 k/cumm (4.4-10.8)
[2018-12-16 07:25] VITALS: BP 140/74; PULSE 70; RESP 18; TEMP 36.5; O2SAT 91
[2018-12-16 07:40] VITALS: O2SAT 93
[2018-12-16 07:50] LABS: ALT 31 U/L (12-78); AST 28 U/L (15-37); Alkaline Phosphatase 63 U/L (46-116); Anion Gap 8.5 mmol/L (3-11); BUN 19 mg/dL (7-18); Bilirubin, Total 0.6 mg/dL (0.2-1.0); CO2 28.5 mmol/L (21.0-32.0); CREATININE 1.15 mg/dL (0.70-1.30); Calcium 8.3 mg/dL (8.5-10.1); Chloride 102 mmol/L (98-107); Glucose 100 mg/dL (70-100); Magnesium 2.2 mg/dL (1.8-2.4); Potassium 3.3 mmol/L (3.5-5.1); Sodium 139 mmol/L (136-145); Total Protein 5.2 g/dL (6.4-8.2)
[2018-12-16 07:51] LABS: Absolute Lymphocyte Count 1.81 k/cumm (1.2-3.4); Absolute Monocyte Count 1.88 k/cumm (0.11-0.7); Absolute Neutrophil Count 3.14 k/cumm (1.2-6.7); Atypical Lymphocytes % 4
[2018-12-16 07:52] LABS: Diff Comment Manual Differential; Nucleated RBC 1 /100WBC; Poikilocytes 2+; Polychromasia Present
[2018-12-16] MEDS: Acyclovir 400 MG TAB 800 MG PO ×2 (08:34→20:07)
[2018-12-16] MEDS: Losartan 25 MG TAB 50 MG PO (08:34)
[2018-12-16] MEDS: Magnesium Oxide 400 MG TAB PO (08:34)
[2018-12-16] MEDS: Benzonatate 200 MG CAP PO ×3 (08:35→20:07)
[2018-12-16] MEDS: LEVOFLOXACIN 500 MG, LEVOFLOXACIN 250 MG 750 MG PO (08:35)
[2018-12-16] MEDS: Colchicine 0.6 MG TAB PO (08:35)
[2018-12-16] MEDS: Aspirin 81 MG CHEW PO (08:35)
[2018-12-16] MEDS: Potassium Chloride 20 MEQ TABCR 40 MEQ PO (09:26)
[2018-12-16 10:10] VITALS: PULSE 72
--- NOTE | 2018-12-16 14:58 | PGE_ITS ---
Date of Service Date of service: 12/16/18 Time of Service: 14:57 Assessment and Plan (1) Febrile neutropenia: Current visit: Yes Status: Acute In setting of pneumonia. ANC improved without significant intervention, and remains normalized. Was being treated with Cefepime, discontinued after 4 days of therapy as blood culture grew Bacteroides Fragilis from one set collected 12/11. Repeat Blood Cultures on 12/12 with no growth X96 hours. Port appears clean and without surrounding cellulitic changes or underlying fluctuance - Vancomycin was discontinued. Given evidence of B. Fragilis in one blood culture in patient on chemotherapy, case was discussed with ID at [facility] - antibiotic regimen was changed to combination Levofloxacin and Metronidazole for a planned 14 day course of therapy, today is day #2. Sputum culture unrevealing. Plan will be for observation over the next day to ensure stability and improvement in patient's condition prior to discharge, as well as with close monitoring of vitals and labs. (2) Pneumonia: Current visit: Yes Status: Acute Treatment as above. (3) Diabetes type 2, controlled: Current visit: Yes Status: Chronic Appears diet controlled. Monitor finger stick glucose, and initiate sliding scale if warranted. (4) Diffuse large B cell lymphoma: Current visit: Yes Status: Chronic Currently on Imbruvica and monthly Rituximab - both on hold. [place] [facility] [place] team at [facility] notified, case discussed - agree with plan. (5) CKD (chronic kidney disease): Current visit: Yes Status: Acute Creatinine appears at baseline. (6) DVT prophylaxis: Current visit: Yes Status: Acute SC Heparin Subjective Interval history since last seen: 83-year-old man with past medical history significant for B-cell lymphoma, currently undergoing chemotherapy, admitted from [facility] Emergency Department on 12/11 with a diagnosis of febrile neutropenia and pneumonia. Mr. Gonzales has a past history significant for B-Cell Lymphoma currently on monthy Rituximab and daily Ibrutinib. He also has known gout, BPH, HTN, Dyslipidemia, CKD, and Diabetes. The patient presented to the ED with complaints of 5 days of cough. Work-up revealed evidence of Pneumonia by imaging, and mild leukocytosis with concurrent ANC of 300. The patient was admitted and initiated on Vancomycin and Cefepime. Mr. Gonzales reported improvement in his symptoms very early on, with continued cough but overall feeling better. His white count remained normal, and his ANC value normalized without intervention. One set of blood cultures grew GNR, then speciated to Bacteroides Fragilis. He has not had a recurrence of fevers since clinical dietetic technician of 12/12. No other overnight events reported. Exam Narrative Exam Narrative: General: Patient appears comfortable, AAOX3, NAD Neck: Supple CV: Regular, nontachycardic, S1S2, No rubs, murmurs, or gallops. Pulmonary: Bibasilar crackles improved, now just overlying left lateral base, without wheezing or rhonchi Abdomen: + Bowel Sounds, soft, nontender, nondistended Vascular: No lower extremity edema Psych: Normal mood and affect. Objective Objective Clinical Data: Abnormal lab results 12/16/18 12/16/18 Range/Units 06:10 06:10 RBC 3.42 L (4.50-6.00) m/cumm Hgb 9.9 L (13.5-17.5) g/dL Hct 30.7 L (40.0-50.0) % RDW 14.9 H (11.8-14.1) % MPV 11.5 H (8.0-11.0) fL Absolute Monocytes 1.88 H (0.11-0.7) k/cumm Potassium 3.3 L (3.5-5.1) mmol/L BUN 19 H (7-18) mg/dL Calcium 8.3 L (8.5-10.1) mg/dL Total Protein 5.2 L (6.4-8.2) g/dL Albumin 2.0 L (3.4-5.0) g/dL Vital Signs Temperature 36.5 C 12/16/18 07:25 Temperature Source Tympanic 12/16/18 07:25 Pulse 72 12/16/18 10:10 Pulse Rhythm Irregular 12/16/18 08:00 Pulse 73 12/11/18 23:10 Respiratory Rate 18 12/16/18 07:25 Respiratory Effort Non-Labored 12/16/18 08:00 Respiratory Depth Normal 12/16/18 08:00 Respiratory Pattern Normal 12/16/18 08:00 Blood Pressure 140/74 12/16/18 07:25 Blood Pressure Mean 70 12/11/18 23:01 Blood Pressure Position Sitting 12/11/18 20:02 Pulse Oximetry 93 L 12/16/18 07:40 Oxygen Delivery Method Room Air 12/16/18 07:40 Oxygen Flow Rate 0 12/16/18 07:40 Pain Level 0 12/15/18 20:15 Comment 12/12/18 23:51 Intake & Output 12/15/18 12/16/18 12/16/18 23:59 11:59 23:59 Intake Total 360 / 1230 570 / 810 240 / 810 Balance 360 / 1230 570 / 810 240 / 810 Intake: IV Oral 360 / 1080 540 / 780 240 / 780 Other: Stool Characteristics Soft Formed Voiding Methods Toilet Toilet Laboratory Results WBC 6.97 k/cumm (4.4-10.8) 12/16/18 06:10 RBC 3.42 m/cumm (4.50-6.00) L 12/16/18 06:10 Hgb 9.9 g/dL (13.5-17.5) L 12/16/18 06:10 Hct 30.7 % (40.0-50.0) L 12/16/18 06:10 MCV 89.8 fL (80-95) 12/16/18 06:10 MCH 28.9 pg (27.0-33.0) 12/16/18 06:10 MCHC 32.2 g/dL (32.0-36.0) 12/16/18 06:10 RDW 14.9 % (11.8-14.1) H 12/16/18 06:10 Plt Count 201 x1000/uL (130-400) 12/16/18 06:10 MPV 11.5 fL (8.0-11.0) H 12/16/18 06:10 Immature Gran % See Differential 12/16/18 06:10 Neutrophils % 32.0 12/16/18 06:10 Band Neutrophils % 13.0 % 12/16/18 06:10 Lymphocytes % 22.0 12/16/18 06:10 Atypical Lymphs % 4 12/16/18 06:10 Monocytes % 27.0 12/16/18 06:10 Eosinophils % 0.0 12/16/18 06:10 Basophils % 0.0 12/16/18 06:10 Absolute Neutrophils 3.14 k/cumm (1.2-6.7) 12/16/18 06:10 Absolute Lymphocytes 1.81 k/cumm (1.2-3.4) 12/16/18 06:10 Absolute Monocytes 1.88 k/cumm (0.11-0.7) H 12/16/18 06:10 Absolute Eosinophils 0.00 k/cumm (0.0-0.7) 12/16/18 06:10 Absolute Basophils 0.00 k/cumm (0.0-0.2) 12/16/18 06:10 Metamyelocytes 1.0 % 12/16/18 06:10 Myelocytes 1.0 % 12/16/18 06:10 Promyelocytes 3 % 12/11/18 20:35 Nucleated RBCs 1 /100WBC 12/16/18 06:10 Differential Comment Manual differential 12/16/18 06:10 RBC Morphology See below 12/16/18 06:10 Polychromasia Present 12/16/18 06:10 Hypochromasia 1+ 12/13/18 06:48 Poikilocytosis 2+ 12/16/18 06:10 Anisocytosis 1+ 12/14/18 07:20 Microcytosis 1+ 12/12/18 06:48 Ovalocytes 2+ 12/14/18 07:20 Acanthocytes (Spur) 2+ 12/15/18 06:15 Sodium 139 mmol/L (136-145) 12/16/18 06:10 Potassium 3.3 mmol/L (3.5-5.1) L 12/16/18 06:10 Chloride 102 mmol/L (98-107) 12/16/18 06:10 Carbon Dioxide 28.5 mmol/L (21.0-32.0) 12/16/18 06:10 Anion Gap 8.5 mmol/L (3-11) 12/16/18 06:10 BUN 19 mg/dL (7-18) H 12/16/18 06:10 Creatinine 1.15 mg/dL (0.70-1.30) 12/16/18 06:10 Estimated GFR/1.73 m2 >= 60.00 (mL/min/1.73m2) 12/16/18 06:10 Glucose 100 mg/dL (70-100) 12/16/18 06:10 Lactate 0.5 mmol/l (0.6-1.4) L 12/11/18 22:10 Calcium 8.3 mg/dL (8.5-10.1) L 12/16/18 06:10 Magnesium 2.2 mg/dL (1.8-2.4) 12/16/18 06:10 Total Bilirubin 0.6 mg/dL (0.2-1.0) 12/16/18 06:10 AST 28 U/L (15-37) 12/16/18 06:10 ALT 31 U/L (12-78) 12/16/18 06:10 Alkaline Phosphatase 63 U/L (46-116) 12/16/18 06:10 Total Protein 5.2 g/dL (6.4-8.2) L 12/16/18 06:10 Albumin 2.0 g/dL (3.4-5.0) L 12/16/18 06:10 Vancomycin Trough Cancelled 12/13/18 20:00 Path Cons Comment See comment 12/11/18 20:35
[2018-12-16 15:36] VITALS: PULSE 61
[2018-12-16 16:11] VITALS: BP 128/69; PULSE 64; RESP 18; TEMP 36.3; O2SAT 91
[2018-12-16] MEDS: POTASSIUM CHLORIDE 20 MEQ, POTASSIUM CHLORIDE 10 MEQ 30 MEQ PO (16:29)
--- NOTE | 2018-12-16 17:15 | PDOC.CMPRO ---
- If Service Date Differs Date of service: 12/16/18 Time of Service: 17:15 Care Management Progress Note S/O: CM met with Patel at the bedside he really wants to be discharged home today he feels that he is doing better. He does have an irregular heartbeat he did have an EKG today and possible placement on Telemetry. Anticipate Patel will be discharged home on per provider. He continues to be monitored on oral antibiotics. A: :marlen is an 83 year old male admitted with pneumonia under going treatment for b-cell lymphoma P: Referral to [facility], and [facility]. Anticipate he will be discharged home on oral antibiotics on . Patel will drive him self home at time of discharge. CM to continue to provide support to patient during admission and discharge planning.
--- NOTE | 2018-12-16 17:25 | CMPROGNOTE_ITS ---
- If Service Date Differs Date of service: 12/16/18 Time of Service: 17:15 Care Management Progress Note S/O: CM met with Patel at the bedside he really wants to be discharged home today he feels that he is doing better. He does have an irregular heartbeat he did have an EKG today and possible placement on Telemetry. Anticipate Patel will be discharged home on per provider. He continues to be monitored on oral antibiotics. A: :marlen is an 83 year old male admitted with pneumonia under going treatment for b-cell lymphoma P: Referral to [facility], and [facility]. Anticipate he will be discharged home on oral antibiotics on . Patel will drive him self home at time of discharge. CM to continue to provide support to patient during admission and discharge planning.
[2018-12-17] MEDS: Heparin 5,000 UNITS/ML VIAL 5000 UNITS SC ×2 (00:20→08:04)
[2018-12-17 00:22] VITALS: PULSE 64
[2018-12-17 00:24] VITALS: BP 142/67; PULSE 64; RESP 18; TEMP 37.1; O2SAT 95
[2018-12-17] MEDS: metroNIDAZOLE 500 MG TAB PO ×2 (03:27→11:50)
[2018-12-17 07:25] VITALS: BP 148/71; PULSE 61; RESP 18; TEMP 37.1; O2SAT 96
[2018-12-17 07:28] LABS: HCT 30.7 % (40.0-50.0); HGB 9.9 g/dL (13.5-17.5); Mean Corp. HGB Concentration 32.2 g/dL (32.0-36.0); Mean Platelet Volume 11.2 fL (8.0-11.0); Platelet Count 205 x1000/uL (130-400); RBC 3.41 m/cumm (4.50-6.00); RBC Distribution Width 15.1 % (11.8-14.1); White Blood Cell Count 6.69 k/cumm (4.4-10.8)
[2018-12-17 07:44] LABS: ALT 26 U/L (12-78); AST 21 U/L (15-37); Alkaline Phosphatase 63 U/L (46-116); Anion Gap 7.5 mmol/L (3-11); BUN 22 mg/dL (7-18); Bilirubin, Total 0.6 mg/dL (0.2-1.0); CO2 29.5 mmol/L (21.0-32.0); CREATININE 1.16 mg/dL (0.70-1.30); Calcium 8.4 mg/dL (8.5-10.1); Chloride 104 mmol/L (98-107); Glucose 98 mg/dL (70-100); Magnesium 1.7 mg/dL (1.8-2.4); Potassium 3.6 mmol/L (3.5-5.1); Sodium 141 mmol/L (136-145); Total Protein 5.1 g/dL (6.4-8.2)
[2018-12-17] MEDS: Magnesium Oxide 400 MG TAB PO ×2 (08:05→08:49)
[2018-12-17] MEDS: LEVOFLOXACIN 500 MG, LEVOFLOXACIN 250 MG 750 MG PO (08:05)
[2018-12-17] MEDS: Aspirin 81 MG CHEW PO (08:05)
[2018-12-17] MEDS: Benzonatate 200 MG CAP PO (08:05)
[2018-12-17] MEDS: Colchicine 0.6 MG TAB PO (08:05)
[2018-12-17] MEDS: Acyclovir 400 MG TAB 800 MG PO (08:05)
[2018-12-17] MEDS: Losartan 25 MG TAB 50 MG PO (08:05)
[2018-12-17 08:09] LABS: Absolute Neutrophil Count 3.08 k/cumm (1.2-6.7)
[2018-12-17 08:10] LABS: Absolute Lymphocyte Count 1.67 k/cumm (1.2-3.4); Absolute Monocyte Count 1.67 k/cumm (0.11-0.7); Diff Comment Manual Differential; Poikilocytes 2+
[2018-12-17] MEDS: Potassium Chloride 20 MEQ TABCR 40 MEQ PO (08:50)
[2018-12-17 09:38] VITALS: PULSE 71
--- NOTE | 2018-12-17 10:55 | W.PM.DS.N ---
Date of service: 12/17/18 Time of Service: 10:55 DS: Diagnosis Discharge Diagnosis (1) Febrile neutropenia: Status: Acute (2) Pneumonia: Status: Acute (3) Diffuse large B cell lymphoma: Status: Chronic Discharge Plan Disposition Patient Disposition: HOME Condition: Fair Discharge Details Reason For Visit: FEBRILE NEUTROPENIA,PNEUMONIA Admit Date/Time: 12/11/18 22:45 Admit Provider: Jean Paul Mendoza Attending Provider: Jean Paul Mendoza Primary Care Provider: Leo Vargas Hospital Course Hospital Course: CC: Dyspnea HPI: 83-year-old man with past medical history significant for B-cell lymphoma, currently undergoing chemotherapy, admitted from [facility] Emergency Department on 12/11 with a diagnosis of febrile neutropenia and pneumonia. Mr. Gonzales has a past history significant for B-Cell Lymphoma currently on monthy Rituximab and daily Ibrutinib. He also has known gout, BPH, HTN, Dyslipidemia, CKD, and Diabetes. The patient presented to the ED with complaints of 5 days of cough. Work-up revealed evidence of Pneumonia by imaging, and mild leukocytosis with concurrent ANC of 300. The patient was admitted and initiated on Vancomycin and Cefepime. Mr. Gonzales reported improvement in his symptoms very early on, with continued cough but overall feeling better. His white count remained normal, and his ANC value normalized without intervention, and his fevers stopped. However, one set of blood cultures grew a GNR, then speciated to Bacteroides Fragilis. He has not had a recurrence of fevers since infant teacher of 12/12. Per discussion with ID his antibiotic regimen was changed to include coverage for both B. Fragilis and other potential pathogens for a pneumonia, and he was monitored over a 48 hour period without recurrence of fevers. He feels well this morning, and his WBC is normal. No other overnight events reported. Hospital Course: (1) Febrile neutropenia: In setting of pneumonia. ANC improved without significant intervention, and remains normalized. Was being treated with Cefepime, discontinued after 4 days of therapy as blood culture grew Bacteroides Fragilis from one set collected 12/11. Repeat Blood Cultures on 12/12 with no growth X96 hours. Port appears clean and without surrounding cellulitic changes or underlying fluctuance - Vancomycin was discontinued. Given evidence of B. Fragilis in one blood culture in patient on chemotherapy, case was discussed with ID at [facility] - antibiotic regimen was changed to combination Levofloxacin and Metronidazole for a planned 14 day course of therapy, today is day #3. Sputum culture unrevealing. Patient was monitored over 48 hours time since antibiotic change to ensure stability and improvement in condition prior to discharge, as well as with close monitoring of vitals and labs. He appears well and has remained afebrile, with a normal white blood count and ANC. (2) Pneumonia: Treatment as above. (3) Diabetes type 2, controlled: Appears diet controlled. (4) Diffuse large B cell lymphoma: Currently on Imbruvica and monthly Rituximab - both on hold. [place] Cristal Oneal [place] [facility] [place] team at [facility] notified, case discussed - agree with plan. Patient to hold Imbruvica until cleared to resume by oncology. (5) CKD (chronic kidney disease): Creatinine appears at baseline. (6) DVT prophylaxis: Maintained SC Heparin while hospitalized. Home Meds and New Rx's Prescriptions: New metronidazole 500 mg Tablet 500 mg PO Q8H Qty: 36 RF: 0 levofloxacin [Levaquin] 750 mg Tablet 750 mg PO QAM Qty: 11 RF: 0 Lactobacillus acidophilus capsule 100 mmu cells PO TID Qty: 90 RF: 0 Continued losartan 25 MG tablet 50 mg PO QAM RF: 0 aspirin 325 MG tablet 81 mg PO DAILY RF: 0 acyclovir 800 MG tablet 800 mg PO BID RF: 0 ezetimibe-simvastatin [Vytorin 10-80] 1 EACH tablet 1 ea PO DAILY RF: 0 colchicine 0.6 MG capsule 0.6 mg PO DAILY RF: 0 triamterene-hydrochlorothiazid 1 EACH tablet 1 ea PO DAILY RF: 0 ondansetron 8 MG tablet,disintegrating 8 mg OD PRN RF: 0 magnesium oxide 400 MG tablet 400 mg PO DAILY Qty: 30 RF: 0 Discharge Instructions Instructions: Neutropenia (DC), Pneumonia (DC) Additional Instructions: Please see your primary care provider and your oncologist within 1-2 weeks. Stand Alone Forms: Nursing Discharge Form Referrals: Leo Vargas MD [Primary Care Provider] - 01/01/19 9:55 am Activity:: No strenuous activity. Equipment/Supplies:: No Equipment Needed Diet:: Carb Counting Discharge Orders Discharge Orders: Discharge Order (Routine); Ordered 12/17/18 Ordered By: Celestino Elizondo DS: Data Vitals/I&O Vitals and I&O: Vital Signs Temperature 37.1 C 12/17/18 07:25 Temperature Source Tympanic 12/17/18 07:25 Pulse 71 12/17/18 09:38 Pulse Rhythm Irregular 12/17/18 00:15 Pulse 73 12/11/18 23:10 Respiratory Rate 18 12/17/18 07:25 Respiratory Effort Non-Labored 12/17/18 00:15 Respiratory Depth Normal 12/17/18 00:15 Respiratory Pattern Normal 12/17/18 00:15 Blood Pressure 148/71 H 12/17/18 07:25 Blood Pressure Mean 70 12/11/18 23:01 Blood Pressure Position Sitting 12/11/18 20:02 Pulse Oximetry 96 12/17/18 07:25 Oxygen Delivery Method Room Air 12/17/18 07:25 Oxygen Flow Rate 0 12/17/18 07:25 Pain Level 0 12/15/18 20:15 Comment 12/12/18 23:51 Intake & Output 12/16/18 12/16/18 12/17/18 11:59 23:59 11:59 Intake Total 570 / 1290 720 / 1290 490 / 490 Balance 570 / 1290 720 / 1290 490 / 490 Intake: IV Oral 540 / 1260 720 / 1260 490 / 490 Other: Comment pt voiding independently in the toilet Stool Characteristics Soft Formed Voiding Methods Toilet Toilet Completed studies during hospitalization [Text1]: Exam(s) a RAD:XR chest 2V PA & lateral SYMPTOM/DIAGNOSIS: COUGH PA AND LATERAL CHEST: Comparison is made with 21 April 2018. A port is again noted over the left upper chest with the tip in the SVC. The heart size is normal. There are underlying fibrotic changes. A tiny effusion is seen on the lateral view. There are increased densities at the lung bases compared with the previous exam, suspicious for infiltrates. IMPRESSION: Tiny effusion and basilar infiltrates. Labs on day of discharge: Labs from last 24 hours 12/17/18 12/17/18 12/15/18 06:15 06:15 06:15 WBC 6.69 RBC 3.41 L Hgb 9.9 L Hct 30.7 L MCV 90.0 MCH 29.0 MCHC 32.2 RDW 15.1 H Plt Count 205 MPV 11.2 H Immature Gran % See Differential Neutrophils % 40.0 Band Neutrophils % 6.0 Lymphocytes % 25.0 Monocytes % 25.0 Eosinophils % 0.0 Basophils % 0.0 Absolute Neutrophils 3.08 Absolute Lymphocytes 1.67 Absolute Monocytes 1.67 H Absolute Eosinophils 0.00 Absolute Basophils 0.00 Metamyelocytes 4.0 Differential Comment Manual differential RBC Morphology See below Poikilocytosis 2+ Sodium 141 Potassium 3.6 Chloride 104 Carbon Dioxide 29.5 Anion Gap 7.5 BUN 22 H Creatinine 1.16 Estimated GFR/1.73 m2 >= 60.00 Glucose 98 Calcium 8.4 L Magnesium 1.7 L Total Bilirubin 0.6 AST 21 ALT 26 Alkaline Phosphatase 63 Total Protein 5.1 L Albumin 2.0 L Path Cons Comment Preliminary micro results at discharge 12/12/18 09:10 Blood Culture - Preliminary Blood NO GROWTH 96 HOURS 12/12/18 09:10 Blood Culture - Preliminary Blood NO GROWTH 96 HOURS 12/11/18 20:35 Blood Culture - Preliminary Blood Bacteroides Fragilis Group [facility] Medical History Diabetes type 2, controlled (Chronic) Hypertension (Chronic) Diffuse large B cell lymphoma (Chronic) Allergic rhinitis (Chronic) Benign prostatic hypertrophy without urinary obstruction (Chronic) Chronic renal impairment (Chronic) Gout (Chronic) Hypercholesterolemia (Chronic) Peripheral venous insufficiency (Chronic) Polyp of colon (Inactive) Surgical History Mediport placement (Chronic) Colonoscopy - MAC (Inactive 07/08/16) Family History Mother No problems noted. Father No problems noted. Social History Smoking/Tobacco Use Status: Never
--- NOTE | 2018-12-17 11:00 | DSE_ITS ---
Date of service: 12/17/18 Time of Service: 10:55 DS: Diagnosis Discharge Diagnosis (1) Febrile neutropenia: Status: Acute (2) Pneumonia: Status: Acute (3) Diffuse large B cell lymphoma: Status: Chronic Discharge Plan Disposition Patient Disposition: HOME Condition: Fair Discharge Details Reason For Visit: FEBRILE NEUTROPENIA,PNEUMONIA Admit Date/Time: 12/11/18 22:45 Admit Provider: Jean Paul Mendoza Attending Provider: Jean Paul Mendoza Primary Care Provider: Leo Vargas Hospital Course Hospital Course: CC: Dyspnea HPI: 83-year-old man with past medical history significant for B-cell lymphoma, currently undergoing chemotherapy, admitted from [facility] Emergency Department on 12/11 with a diagnosis of febrile neutropenia and pneumonia. Mr. Gonzales has a past history significant for B-Cell Lymphoma currently on monthy Rituximab and daily Ibrutinib. He also has known gout, BPH, HTN, Dyslipidemia, CKD, and Diabetes. The patient presented to the ED with complaints of 5 days of cough. Work-up revealed evidence of Pneumonia by imaging, and mild leukocytosis with concurrent ANC of 300. The patient was admitted and initiated on Vancomycin and Cefepime. Mr. Gonzales reported improvement in his symptoms very early on, with continued cough but overall feeling better. His white count remained normal, and his ANC value normalized without intervention, and his fevers stopped. However, one set of blood cultures grew a GNR, then speciated to Bacteroides Fragilis. He has not had a recurrence of fevers since feed miller of 12/12. Per discussion with ID his antibiotic regimen was changed to include coverage for both B. Fragilis and other potential pathogens for a pneumonia, and he was monitored over a 48 hour period without recurrence of fevers. He feels well this morning, and his WBC is normal. No other overnight events reported. Hospital Course: (1) Febrile neutropenia: In setting of pneumonia. ANC improved without significant intervention, and remains normalized. Was being treated with Cefepime, discontinued after 4 days of therapy as blood culture grew Bacteroides Fragilis from one set collected 12/11. Repeat Blood Cultures on 12/12 with no growth X96 hours. Port appears clean and without surrounding cellulitic changes or underlying fluctuance - Vancomycin was discontinued. Given evidence of B. Fragilis in one blood culture in patient on chemotherapy, case was discussed with ID at [facility] - antibiotic regimen was changed to combinat ion Levofloxacin and Metronidazole for a planned 14 day course of therapy, today is day #3. Sputum culture unrevealing. Patient was monitored over 48 hours time since antibiotic change to ensure stability and improvement in condition prior to discharge, as well as with close monitoring of vitals and labs. He appears well and has remained afebrile, with a normal white blood count and ANC. (2) Pneumonia: Treatment as above. (3) Diabetes type 2, controlled: Appears diet controlled. (4) Diffuse large B cell lymphoma: Currently on Imbruvica and monthly Rituximab - both on hold. [place]. Cristal Oneal [place] [facility] [place] team at [facility] notified, case discussed - agree with plan. Patient to hold Imbruvica until cleared to resume by oncology. (5) CKD (chronic kidney disease): Creatinine appears at baseline. (6) DVT prophylaxis: Maintained SC Heparin while hospitalized. Home Meds and New Rx's Prescriptions: New metronidazole 500 mg Tablet 500 mg PO Q8H Qty: 36 RF: 0 levofloxacin [Levaquin] 750 mg Tablet 750 mg PO QAM Qty: 11 RF: 0 Lactobacillus acidophilus capsule 100 mmu cells PO TID Qty: 90 RF: 0 Continued losartan 25 MG tablet 50 mg PO QAM RF: 0 aspirin 325 MG tablet 81 mg PO DAILY RF: 0 acyclovir 800 MG tablet 800 mg PO BID RF: 0 ezetimibe-simvastatin [Vytorin 10-80] 1 EACH tablet 1 ea PO DAILY RF: 0 colchicine 0.6 MG capsule 0.6 mg PO DAILY RF: 0 triamterene-hydrochlorothiazid 1 EACH tablet 1 ea PO DAILY RF: 0 ondansetron 8 MG tablet,disintegrating 8 mg OD PRN RF: 0 magnesium oxide 400 MG tablet 400 mg PO DAILY Qty: 30 RF: 0 Discharge Instructions Instructions: Neutropenia (DC), Pneumonia (DC) Additional Instructions: Please see your primary care provider and your oncologist within 1-2 weeks. Stand Alone Forms: Nursing Discharge Form Referrals: Leo Vargas MD [Primary Care Provider] - 01/01/19 9:55 am Activity:: No strenuous activity. Equipment/Supplies:: No Equipment Needed Diet:: Carb Counting Discharge Orders Discharge Orders: Discharge Order (Routine); Ordered 12/17/18 Ordered By: Celestino Elizondo DS: Data Vitals/I&O Vitals and I&O: Vital Signs Temperature 37.1 C 12/17/18 07:25 Temperature Source Tympanic 12/17/18 07:25 Pulse 71 12/17/18 09:38 Pulse Rhythm Irregular 12/17/18 00:15 Pulse 73 12/11/18 23:10 Respiratory Rate 18 12/17/18 07:25 Respiratory Effort Non-Labored 12/17/18 00:15 Respiratory Depth Normal 12/17/18 00:15 Respiratory Pattern Normal 12/17/18 00:15 Blood Pressure 148/71 H 12/17/18 07:25 Blood Pressure Mean 70 12/11/18 23:01 Blood Pressure Position Sitting 12/11/18 20:02 Pulse Oximetry 96 12/17/18 07:25 Oxygen Delivery Method Room Air 12/17/18 07:25 Oxygen Flow Rate 0 12/17/18 07:25 Pain Level 0 12/15/18 20:15 Comment 12/12/18 23:51 Intake & Output 12/16/18 12/16/18 12/17/18 11:59 23:59 11:59 Intake Total 570 / 1290 720 / 1290 490 / 490 Balance 570 / 1290 720 / 1290 490 / 490 Intake: IV Oral 540 / 1260 720 / 1260 490 / 490 Other: Comment pt voiding independently in the toilet Stool Characteristics Soft Formed Voiding Methods Toilet Toilet Completed studies during hospitalization [Text1]: Exam(s) a RAD:XR chest 2V PA & lateral SYMPTOM/DIAGNOSIS: COUGH PA AND LATERAL CHEST: Comparison is made with 21 April 2018. A port is again noted over the left upper chest with the tip in the SVC. The heart size is normal. There are underlying fibrotic changes. A tiny effusion is seen on the lateral view. There are increased densities at the lung bases compared with the previous exam, suspicious for infiltrates. IMPRESSION: Tiny effusion and basilar infiltrates. Labs on day of discharge: Labs from last 24 hours 12/17/18 12/17/18 12/15/18 06:15 06:15 06:15 WBC 6.69 RBC 3.41 L Hgb 9.9 L Hct 30.7 L MCV 90.0 MCH 29.0 MCHC 32.2 RDW 15.1 H Plt Count 205 MPV 11.2 H Immature Gran % See Differential Neutrophils % 40.0 Band Neutrophils % 6.0 Lymphocytes % 25.0 Monocytes % 25.0 Eosinophils % 0.0 Basophils % 0.0 Absolute Neutrophils 3.08 Absolute Lymphocytes 1.67 Absolute Monocytes 1.67 H Absolute Eosinophils 0.00 Absolute Basophils 0.00 Metamyelocytes 4.0 Differential Comment Manual differential RBC Morphology See below Poikilocytosis 2+ Sodium 141 Potassium 3.6 Chloride 104 Carbon Dioxide 29.5 Anion Gap 7.5 BUN 22 H Creatinine 1.16 Estimated GFR/1.73 m2 >= 60.00 Glucose 98 Calcium 8.4 L Magnesium 1.7 L Total Bilirubin 0.6 AST 21 ALT 26 Alkaline Phosphatase 63 Total Protein 5.1 L Albumin 2.0 L Path Cons Comment Preliminary micro results at discharge 12/12/18 09:10 Blood Culture - Preliminary Blood NO GROWTH 96 HOURS 12/12/18 09:10 Blood Culture - Preliminary Blood NO GROWTH 96 HOURS 12/11/18 20:35 Blood Culture - Preliminary Blood Bacteroides Fragilis Group [facility] Medical History Diabetes type 2, controlled (Chronic) Hypertension (Chronic) Diffuse large B cell lymphoma (Chronic) Allergic rhinitis (Chronic) Benign prostatic hypertrophy without urinary obstruction (Chronic) Chronic renal impairment (Chronic) Gout (Chronic) Hypercholesterolemia (Chronic) Peripheral venous insufficiency (Chronic) Polyp of colon (Inactive) Surgical History Mediport placement (Chronic) Colonoscopy - MAC (Inactive 07/08/16) Family History Mother No problems noted. Father No problems noted. Social History Smoking/Tobacco Use Status: Never
[2018-12-17 12:14] VITALS: BP 150/41; PULSE 59; RESP 18; TEMP 36.7; O2SAT 94
[2018-12-17] MEDS: Heparin 500 UNITS/5 ML SYRINGE IVP (13:35)
[2018-12-17] MEDS: Normal Saline Flush 10 ML SYR IVP (13:35)
[2018-12-17 13:49] VITALS: PULSE 68
--- NOTE | 2018-12-17 13:59 | PDOC.CMDIS ---
- If Service Date Differs Date of service: 12/17/18 Time of Service: 13:59 LACE Index Scoring Tool - Questions: Length of Stay (in days): 4 - 6 Acuity (Admit via E.D.?): Yes Comorbidities: Any Tumor E.D. Visits: 2 - Answers: Total Score: 11 Risk of Readmission: High Risk Care Management Discharge Reason for Hospitalization: Febrile Neutropenia, Pneumonia Discharge Plan: Patel is being discharged home today he will follow up with primary care and [facility]. A referral has been faxed to [facility] and [facility]. Patel will drive himself home at time of discharge. Patel declines any additional services at this time and feels that he is ready for discharge. Patient/Family Education Needs: Discharge education, limitations and follow up plan of care including self management and ask me three.
== END 2018-12-17 13:59 | disposition home or self-care (01) | DRG 194 ==
LOC: ER 23:07 → MS 23:25
PROVIDERS: Admitting Provider General Practice; Emergency Provider Emergency Medicine; PCP Internal Medicine; Visit Provider Internal Medicine
DX: J18.9 Pneumonia, unspecified organism (principal); R78.81 Bacteremia; C83.30 Diffuse large B-cell lymphoma, unspecified site; B96.6 Bacteroides fragilis [B. fragilis] as the cause of diseases classified elsewhere; D70.3 Neutropenia due to infection; Z79.899 Other long term (current) drug therapy; Z95.828 Presence of other vascular implants and grafts; I12.9 Hypertensive chronic kidney disease with stage 1 through stage 4 chronic kidney disease, or unspecified chronic kidney disease; N18.9 Chronic kidney disease, unspecified; E11.22 Type 2 diabetes mellitus with diabetic chronic kidney disease
CPT/HCPCS: 36415; 36591; 80048; 80053; 87040; 93005; 94640; 96365; 96367; 99222; 99232; 99233; 99239; 99285; 71046; 80202; 83605; 83735; 85025; 87070; 87205; 93010; J0456; J0696; J1644; J1956; J7620

== ENCOUNTER 2019-01-13 08:18 | Outpatient (RCR) | payer MEDICARE, OTHER, SELFPAY ==
[2019-01-06] MEDS: Normal Saline Flush 10 ML SYR IVP (07:49)
[2019-01-06 08:04] LABS: Abs Immature Grans 0.02 k/cumm (0.0-0.09); Absolute Basophil Count 0.07 k/cumm (0.0-0.2); Absolute Eosinophil Count 0.63 k/cumm (0.0-0.7); Absolute Lymphocyte Count 2.59 k/cumm (1.2-3.4); Absolute Monocyte Count 1.09 k/cumm (0.11-0.7); Basophils % 1.5; Eosinophils % 13.8; HCT 38.1 % (40.0-50.0); HGB 12.3 g/dL (13.5-17.5); Immature Grans % 0.4; Lymphocytes % 56.6; Mean Corp. HGB Concentration 32.3 g/dL (32.0-36.0); Mean Corpuscular Hemoglobin 29.2 pg (27.0-33.0); Mean Corpuscular Volume 90.5 fL (80-95); Mean Platelet Volume 9.6 fL (8.0-11.0); Monocytes % 23.8; Neutrophils % 3.9; Platelet Count 217 x1000/uL (130-400); RBC 4.21 m/cumm (4.50-6.00); RBC Distribution Width 16.1 % (11.8-14.1); White Blood Cell Count 4.58 k/cumm (4.4-10.8)
[2019-01-06 08:17] LABS: ALT 15 U/L (12-78); AST 12 U/L (15-37); Albumin 2.8 g/dL (3.4-5.0); Alkaline Phosphatase 58 U/L (46-116); Anion Gap 6.4 mmol/L (3-11); BUN 20 mg/dL (7-18); Bilirubin, Total 0.5 mg/dL (0.2-1.0); CO2 32.6 mmol/L (21.0-32.0); CREATININE 1.08 mg/dL (0.70-1.30); Calcium 8.6 mg/dL (8.5-10.1); Chloride 105 mmol/L (98-107); Glucose 103 mg/dL (70-100); LDH 145 U/L (85-227); Potassium 3.8 mmol/L (3.5-5.1); Sodium 144 mmol/L (136-145)
[2019-01-06 08:49] LABS: Absolute Neutrophil Count 0.18 k/cumm (1.2-6.7)
[2019-01-13] MEDS: Normal Saline Flush 10 ML SYR IVP (07:18)
[2019-01-13 07:28] LABS: Abs Immature Grans 0.97 k/cumm (0.0-0.09); HCT 37.9 % (40.0-50.0); HGB 12.3 g/dL (13.5-17.5); Mean Corp. HGB Concentration 32.5 g/dL (32.0-36.0); Mean Corpuscular Hemoglobin 29.5 pg (27.0-33.0); Mean Corpuscular Volume 90.9 fL (80-95); Mean Platelet Volume 9.7 fL (8.0-11.0); Platelet Count 151 x1000/uL (130-400); RBC 4.17 m/cumm (4.50-6.00); RBC Distribution Width 17.5 % (11.8-14.1); White Blood Cell Count 23.84 k/cumm (4.4-10.8)
[2019-01-13 07:42] LABS: ALT 12 U/L (12-78); AST 12 U/L (15-37); Albumin 3.3 g/dL (3.4-5.0); Alkaline Phosphatase 160 U/L (46-116); Anion Gap 7.4 mmol/L (3-11); BUN 25 mg/dL (7-18); Bilirubin, Total 0.5 mg/dL (0.2-1.0); CO2 30.6 mmol/L (21.0-32.0); CREATININE 1.32 mg/dL (0.70-1.30); Calcium 8.8 mg/dL (8.5-10.1); Chloride 105 mmol/L (98-107); Estimated GFR 52.06 (mL/min/1.73m2); Glucose 115 mg/dL (70-100); LDH 258 U/L (85-227); Sodium 143 mmol/L (136-145); Total Protein 6.2 g/dL (6.4-8.2)
[2019-01-13 07:49] LABS: Absolute Neutrophil Count 18.83 k/cumm (1.2-6.7)
[2019-01-13 07:50] LABS: Absolute Lymphocyte Count 2.62 k/cumm (1.2-3.4); Absolute Monocyte Count 2.15 k/cumm (0.11-0.7); Diff Comment Manual Differential
[2019-01-13 07:51] LABS: Anisocytosis 2+; Poikilocytes 1+
== END 2019-01-14 23:59 | disposition home or self-care (01) ==
LOC: INF 08:18
PROVIDERS: PCP Internal Medicine; Visit Provider Internal Medicine Hematology & Oncology
DX: C83.30 Diffuse large B-cell lymphoma, unspecified site (principal); Z45.2 Encounter for adjustment and management of vascular access device
CPT/HCPCS: 36591; 80053; 83615; 85025

== ENCOUNTER 2019-02-10 02:03 | Outpatient (RCR) | payer MEDICARE, OTHER, SELFPAY ==
[2019-01-28] MEDS: Heparin 500 UNITS/5 ML SYRINGE IV (07:21)
[2019-01-28] MEDS: Normal Saline Flush 10 ML SYR IVP (07:21)
[2019-01-28 07:36] LABS: Abs Immature Grans 0.08 k/cumm (0.0-0.09); Absolute Basophil Count 0.05 k/cumm (0.0-0.2); Absolute Eosinophil Count 0.19 k/cumm (0.0-0.7); Absolute Lymphocyte Count 3.06 k/cumm (1.2-3.4); Absolute Monocyte Count 1.21 k/cumm (0.11-0.7); Absolute Neutrophil Count 4.95 k/cumm (1.2-6.7); Basophils % 0.5; HCT 38.4 % (40.0-50.0); HGB 12.6 g/dL (13.5-17.5); Immature Grans % 0.8; Lymphocytes % 32.1; Mean Corp. HGB Concentration 32.8 g/dL (32.0-36.0); Mean Corpuscular Hemoglobin 29.8 pg (27.0-33.0); Mean Corpuscular Volume 90.8 fL (80-95); Mean Platelet Volume 10.1 fL (8.0-11.0); Monocytes % 12.7; Neutrophils % 51.9; Platelet Count 225 x1000/uL (130-400); RBC 4.23 m/cumm (4.50-6.00); RBC Distribution Width 17.5 % (11.8-14.1); White Blood Cell Count 9.54 k/cumm (4.4-10.8)
[2019-01-28 07:59] LABS: ALT 10 U/L (12-78); AST 9 U/L (15-37); Albumin 3.3 g/dL (3.4-5.0); Alkaline Phosphatase 58 U/L (46-116); Anion Gap 6.1 mmol/L (3-11); BUN 26 mg/dL (7-18); Bilirubin, Total 0.6 mg/dL (0.2-1.0); CO2 31.9 mmol/L (21.0-32.0); CREATININE 1.44 mg/dL (0.70-1.30); Calcium 8.4 mg/dL (8.5-10.1); Chloride 103 mmol/L (98-107); Estimated GFR 47.08 (mL/min/1.73m2); Glucose 91 mg/dL (70-100); LDH 129 U/L (85-227); Potassium 4.1 mmol/L (3.5-5.1); Sodium 141 mmol/L (136-145); Total Protein 5.8 g/dL (6.4-8.2)
[2019-01-29 10:34] LABS: IgA 32 mg/dL (85-499); IgG 288 mg/dL (610-1616); IgM <12 mg/dL (35-242)
[2019-02-10] MEDS: Normal Saline Flush 10 ML SYR IVP (07:00)
[2019-02-10 07:36] LABS: Abs Immature Grans 0.05 k/cumm (0.0-0.09); Absolute Basophil Count 0.06 k/cumm (0.0-0.2); Absolute Eosinophil Count 0.12 k/cumm (0.0-0.7); Absolute Lymphocyte Count 2.84 k/cumm (1.2-3.4); Absolute Monocyte Count 1.31 k/cumm (0.11-0.7); Absolute Neutrophil Count 8.06 k/cumm (1.2-6.7); Basophils % 0.5; HCT 38.9 % (40.0-50.0); HGB 12.8 g/dL (13.5-17.5); Immature Grans % 0.4; Lymphocytes % 22.8; Mean Corp. HGB Concentration 32.9 g/dL (32.0-36.0); Mean Corpuscular Hemoglobin 30.3 pg (27.0-33.0); Mean Platelet Volume 11.1 fL (8.0-11.0); Monocytes % 10.5; Neutrophils % 64.8; Platelet Count 175 x1000/uL (130-400); RBC 4.23 m/cumm (4.50-6.00); White Blood Cell Count 12.44 k/cumm (4.4-10.8)
[2019-02-10 07:39] LABS: ALT 11 U/L (12-78); AST 10 U/L (15-37); Albumin 3.6 g/dL (3.4-5.0); Alkaline Phosphatase 55 U/L (46-116); BUN 29 mg/dL (7-18); Bilirubin, Total 1.1 mg/dL (0.2-1.0); CREATININE 1.39 mg/dL (0.70-1.30); Calcium 8.3 mg/dL (8.5-10.1); Chloride 105 mmol/L (98-107); Estimated GFR 49.04 (mL/min/1.73m2); Glucose 84 mg/dL (70-100); LDH 162 U/L (85-227); Potassium 4.1 mmol/L (3.5-5.1); Sodium 143 mmol/L (136-145); Total Protein 5.9 g/dL (6.4-8.2)
== END 2019-02-14 23:59 | disposition home or self-care (01) ==
LOC: INF 02:03
PROVIDERS: PCP Internal Medicine; Visit Provider Internal Medicine Hematology & Oncology
DX: C83.30 Diffuse large B-cell lymphoma, unspecified site (principal); Z45.2 Encounter for adjustment and management of vascular access device
CPT/HCPCS: 36591; 80053; 82784; 83615; 85025

== ENCOUNTER 2019-03-10 10:42 | Outpatient (RCR) | payer MEDICARE, OTHER, SELFPAY ==
[2019-03-10] MEDS: Heparin 500 UNITS/5 ML SYRINGE (13:54)
[2019-03-10] MEDS: Normal Saline Flush 10 ML SYR 30 ML IVP (14:02)
[2019-03-10 14:03] LABS: Abs Immature Grans 0.04 k/cumm (0.0-0.09); Absolute Basophil Count 0.05 k/cumm (0.0-0.2); Absolute Eosinophil Count 0.09 k/cumm (0.0-0.7); Absolute Monocyte Count 1.13 k/cumm (0.11-0.7); Absolute Neutrophil Count 5.03 k/cumm (1.2-6.7); Basophils % 0.5; Eosinophils % 0.9; HGB 13.1 g/dL (13.5-17.5); Immature Grans % 0.4; Lymphocytes % 37.5; Mean Corp. HGB Concentration 33.6 g/dL (32.0-36.0); Mean Corpuscular Hemoglobin 30.6 pg (27.0-33.0); Mean Corpuscular Volume 91.1 fL (80-95); Mean Platelet Volume 10.3 fL (8.0-11.0); Monocytes % 11.1; Neutrophils % 49.6; Platelet Count 175 x1000/uL (130-400); RBC 4.28 m/cumm (4.50-6.00); RBC Distribution Width 16.4 % (11.8-14.1); White Blood Cell Count 10.14 k/cumm (4.4-10.8)
[2019-03-10 14:24] LABS: ALT 14 U/L (12-78); AST 8 U/L (15-37); Albumin 3.7 g/dL (3.4-5.0); Alkaline Phosphatase 58 U/L (46-116); Anion Gap 7.5 mmol/L (3-11); BUN 27 mg/dL (7-18); Bilirubin, Total 0.9 mg/dL (0.2-1.0); CO2 29.5 mmol/L (21.0-32.0); CREATININE 1.28 mg/dL (0.70-1.30); Calcium 8.7 mg/dL (8.5-10.1); Chloride 104 mmol/L (98-107); Estimated GFR 53.94 (mL/min/1.73m2); Glucose 101 mg/dL (70-100); LDH 158 U/L (85-227); Potassium 3.9 mmol/L (3.5-5.1); Sodium 141 mmol/L (136-145); Total Protein 6.2 g/dL (6.4-8.2)
== END 2019-03-16 23:59 | disposition home or self-care (01) ==
LOC: INF 10:42
PROVIDERS: PCP Internal Medicine; Visit Provider Internal Medicine Hematology & Oncology
DX: C83.30 Diffuse large B-cell lymphoma, unspecified site (principal); Z45.2 Encounter for adjustment and management of vascular access device
CPT/HCPCS: 36591; 80053; 83615; 85025

== ENCOUNTER 2019-04-28 09:32 | Outpatient (RCR) | payer MEDICARE, OTHER, SELFPAY ==
[2019-04-28] MEDS: Normal Saline Flush 10 ML SYR IVP (09:30)
[2019-04-28 09:56] LABS: Abs Immature Grans 0.04 k/cumm (0.0-0.09); Absolute Basophil Count 0.04 k/cumm (0.0-0.2); Absolute Eosinophil Count 0.14 k/cumm (0.0-0.7); Absolute Lymphocyte Count 2.46 k/cumm (1.2-3.4); Absolute Monocyte Count 1.28 k/cumm (0.11-0.7); Basophils % 0.4; Eosinophils % 1.3; HCT 40.3 % (40.0-50.0); HGB 13.6 g/dL (13.5-17.5); Immature Grans % 0.4; Lymphocytes % 22.2; Mean Corp. HGB Concentration 33.7 g/dL (32.0-36.0); Mean Corpuscular Volume 94.8 fL (80-95); Mean Platelet Volume 11.3 fL (8.0-11.0); Monocytes % 11.5; Neutrophils % 64.2; Platelet Count 148 x1000/uL (130-400); RBC 4.25 m/cumm (4.50-6.00); RBC Distribution Width 15.2 % (11.8-14.1)
[2019-04-28 10:01] LABS: Absolute Neutrophil Count 7.13 k/cumm (1.2-6.7)
[2019-04-28 10:09] LABS: ALT 17 U/L (12-78); AST 14 U/L (15-37); Albumin 3.4 g/dL (3.4-5.0); Alkaline Phosphatase 47 U/L (46-116); Anion Gap 6.4 mmol/L (3-11); BUN 27 mg/dL (7-18); Bilirubin, Total 0.6 mg/dL (0.2-1.0); CO2 30.6 mmol/L (21.0-32.0); CREATININE 1.15 mg/dL (0.70-1.30); Calcium 8.5 mg/dL (8.5-10.1); Chloride 105 mmol/L (98-107); Glucose 101 mg/dL (70-100); LDH 252 U/L (85-227); Potassium 4.2 mmol/L (3.5-5.1); Sodium 142 mmol/L (136-145); Total Protein 5.9 g/dL (6.4-8.2)
== END 2019-05-16 23:59 | disposition home or self-care (01) ==
LOC: INF 09:32
PROVIDERS: PCP Internal Medicine; Visit Provider Internal Medicine Hematology & Oncology
DX: C83.30 Diffuse large B-cell lymphoma, unspecified site (principal); Z45.2 Encounter for adjustment and management of vascular access device
CPT/HCPCS: 36591; 80053; 83615; 85025

== ENCOUNTER 2019-06-02 08:58 | Emergency (ER) | payer MEDICARE, OTHER, SELFPAY ==
[2019-06-02] VITALS (14 sets, daily range): BP systolic 138–199; BP diastolic 54–74; PULSE 51–62; RESP 16; TEMP 36; O2SAT 95–100
--- NOTE | 2019-06-02 09:29 | DI.RAD_ITS ---
SYMPTOM/DIAGNOSIS: CONSTIPATION PA CHEST: Areas of bilateral lower lobe atelectasis are demonstrated. No infiltrate is seen. There is no pleural effusion. There is elevation of the right hemidiaphragm. The heart is not enlarged. A Portacath is noted in position, its tip ending in the mid portion of the superior vena cava. KUB AND UPRIGHT: There is no evidence of free air. The bowel gas pattern is nonspecific. There is no evidence of gross organomegaly or a localized intra-abdominal or pelvic mass. A catheter is identified in the bladder. SUMMARY: No evidence of an acute abdomen.
--- NOTE | 2019-06-02 09:30 | W.ED.GENAD ---
Discharge Plan Disposition Patient Disposition: HOME Condition: Improving Discharge Details Chief Complaint: Urinary Clinical Impression: Acute urinary retention, Constipation Primary Care Provider: Leo Vargas ED Provider: Javier Fernandez Home Meds and New Rx's Prescriptions: New docusate sodium 100 mg capsule 100 mg PO DAILY PRN (Reason: constipation) Qty: 14 RF: 0 cephalexin [Keflex] 500 mg capsule 500 mg PO BID Qty: 10 RF: 0 Continued losartan 25 MG tablet 50 mg PO QAM RF: 0 aspirin 325 MG tablet 81 mg PO DAILY RF: 0 acyclovir 800 MG tablet 800 mg PO BID RF: 0 ezetimibe-simvastatin [Vytorin 10-80] 1 EACH tablet 1 ea PO DAILY RF: 0 colchicine 0.6 MG capsule 0.6 mg PO DAILY RF: 0 triamterene-hydrochlorothiazid 1 EACH tablet 1 ea PO DAILY RF: 0 Imbruvica 140 mg Capsule 560 mg PO DAILY RF: 0 tamsulosin [Flomax] 0.4 mg Capsule 0.4 mg PO DAILY Qty: 30 RF: 0 ondansetron 8 MG tablet,disintegrating 8 mg OD PRN RF: 0 magnesium oxide 400 MG tablet 400 mg PO DAILY Qty: 30 RF: 0 metronidazole 500 mg Tablet 500 mg PO Q8H Qty: 36 RF: 0 levofloxacin [Levaquin] 750 mg Tablet 750 mg PO QAM Qty: 11 RF: 0 Lactobacillus acidophilus capsule 100 mmu cells PO TID Qty: 90 RF: 0 Discharge Instructions Instructions: Constipation (ED), Urinary Retention in Men (ED) Additional Instructions: Please empty the leg bag when it gets half-full, take your antibiotic as prescribed and follow-up with urology as directed by their office. If you do not hear from them please contact them for reassessment. You may take prescribed medication for constipation and ensure that you drink plenty of water. Return immediately to the emergency department for new or worsening symptoms which may include fever chills, nausea vomiting, or any further concerns. Referrals: Kobi Nj MD [ [facility] STAFF PHYSICIAN] - (As directed by their office. Call the office tomorrow for arrangement of appointment) Leo Vargas MD [Primary Care Provider] - 2 weeks (For reassessment of your constipation) Medical Decision Making Patient presenting to the emergency department for the chief complaint of urinary retention. He states that he has not been able to urinate for the past 24 hours. Patient states only other symptoms he has had some hard stools also but states suprapubic abdominal pain 3 out of 10, no fever no chills, no nausea no vomiting, states otherwise he is doing fine. Patient states that he was previously on Flomax which he ran out and has not refilled. Physical exam shows significant suprapubic tenderness, normal inspection of the penis and testicles, otherwise unremarkable exam. Concern for urinary retention and review of patient's history does state BPH so plan to insert Finney catheter, perform urinalysis, and do plain film imaging of the abdomen due to complaint of constipation. Review of urinalysis does show concerning findings for infection with positive nitrite, trace leukocyte esterase, and WBCs of 20-50. There is moderate amount of blood noted and greater than 50 RBCs on urinalysis but I feel that this is more than likely due to insertion of catheter. Plan to place patient on Keflex pending culture. Reviewed radiological imaging and spoke to radiologist who states no acute findings on imaging. Patient reassessed and states improvement of symptoms. Patient had total of 2000ml urine output in the catheter bag. Patient was placed in a leg bag, started on Flomax, and placed upon follow-up list to follow-up with urology for removal of catheter and reassessment. For complaint of constipation but having some bowel movements patient was placed upon docusate for stool softener. Return precautions discussed. After discussion of diagnosis and plan of care patient has no further needs, questions, or concerns and states clear understanding to return to the emergency department for any worsening symptoms. HPI General Mode of arrival: ambulatory. Date/Time Provider Initiated Documentation: 06/02/19 09:06. Limitations to Documentation: no limitations. Information obtained by: patient and RN notes reviewed. History of Present Illness 83 year old M presents to the emergency department with the chief complaint of Urinary retention, described as mild, with intensity rated at 3. Quality is described as aching, and is localized to the abdomen (Suprapubic). Patient started experiencing this hour(s) (24) and it has been constant. No relieving factors improve symptom(s), No exacerbating factors reported . Patient did receive the following treatments prior to arrival, none Related Data Home Medications Medication Instructions Recorded Confirmed losartan 50 mg PO QAM 02/04/13 06/02/19 acyclovir 800 mg PO BID 07/05/16 06/02/19 aspirin 81 mg PO DAILY 07/05/16 06/02/19 colchicine 0.6 mg PO DAILY 07/05/16 06/02/19 ezetimibe-simvastatin [Vytorin 1 ea PO DAILY 07/05/16 06/02/19 10-80] triamterene-hydrochlorothiazid 1 ea PO DAILY 12/31/17 06/02/19 ondansetron 8 mg OD PRN 04/21/18 06/02/19 magnesium oxide 400 mg PO DAILY #30 tab 04/23/18 06/02/19 Lactobacillus acidophilus 100 mmu cells PO TID #90 cap 12/17/18 06/02/19 levofloxacin [Levaquin] 750 mg PO QAM #11 tab 12/17/18 06/02/19 metronidazole 500 mg PO Q8H #36 tab 12/17/18 06/02/19 Imbruvica 560 mg PO DAILY 06/02/19 06/02/19 cephalexin [Keflex] 500 mg PO BID #10 cap 06/02/19 docusate sodium 100 mg PO DAILY PRN #14 cap 06/02/19 tamsulosin [Flomax] 0.4 mg PO DAILY #30 cap 06/02/19 Previous Rx's Medication Instructions Recorded magnesium oxide 400 mg PO DAILY #30 tab 04/23/18 Lactobacillus acidophilus 100 mmu cells PO TID #90 cap 12/17/18 levofloxacin [Levaquin] 750 mg PO QAM #11 tab 12/17/18 metronidazole 500 mg PO Q8H #36 tab 12/17/18 cephalexin [Keflex] 500 mg PO BID #10 cap 06/02/19 docusate sodium 100 mg PO DAILY PRN #14 cap 06/02/19 tamsulosin [Flomax] 0.4 mg PO DAILY #30 cap 06/02/19 Allergies Allergy/AdvReac Type Severity Reaction Status Date / Time No Known Allergies Allergy Unverified 06/02/19 09:10 General Stated Complaint: Urinary DC: 3 Review of Systems Constitutional Denies body ache(s), Denies chills, Denies fever(s), Denies malaise and Denies weakness Cardiovascular Denies chest pain Respiratory Reports system reviewed and no additional complaints, except as docu Gastrointestinal Denies abdominal pain, Reports constipation, Denies nausea and Denies vomiting Genitourinary Reports as per HPI, Denies hematuria, Reports difficulty urinating, Reports urinary hesitancy, Denies urinary urgency and Reports other (Change in urine color) Neurologic Denies confusion and Denies weakness Psychiatric Denies confusion [facility] Medical History Allergic rhinitis (Chronic) Benign prostatic hypertrophy without urinary obstruction (Chronic) Chronic renal impairment (Chronic) Diabetes type 2, controlled (Chronic) Diffuse large B cell lymphoma (Chronic) Gout (Chronic) Hypercholesterolemia (Chronic) Hypertension (Chronic) Peripheral venous insufficiency (Chronic) Polyp of colon (Inactive) Surgical History Colonoscopy - MAC (Inactive 07/08/16) Mediport placement (Chronic) Family History Mother No problems noted. Father No problems noted. Social History Smoking/Tobacco Use Status: Never Drug use: Never Do you feel safe in your relationship?: Yes Exam Const General: cooperative and no acute distress Orientation: alert, awake and oriented x3 Resp Effort & Inspection: normal respiratory effort and able to speak in complete sentences Auscultation: clear to auscultation bilaterally Cardio Rate: regular rate Rhythm: regular rhythm Heart Sounds: S1 normal and S2 normal GI Palpation: soft, not firm, guarding (Suprapubic), no hernias and tender suprapubicly Auscultation: normal bowel sounds Back/Spine/Pelvis Back: no CVA tenderness Neuro General: alert, awake and oriented x3 Extrem General: normal capillary refill Course Vital Signs Temperature 36.0 C L 06/02/19 09:06 Pulse 62 06/02/19 09:06 Respiratory Rate 16 06/02/19 09:06 Blood Pressure 199/74 H 06/02/19 09:06 Pulse Oximetry 96 06/02/19 09:06 Temperature 36.0 C L 06/02/19 09:06 Temperature Source Skin 06/02/19 09:06 Pulse 62 06/02/19 09:06 Respiratory Rate 16 06/02/19 09:06 Respiratory Effort Non-Labored 06/02/19 09:06 Blood Pressure 199/74 H 06/02/19 09:06 Blood Pressure Position Sitting 06/02/19 09:06 Pulse Oximetry 96 06/02/19 09:06 Oxygen Delivery Method Room Air 06/02/19 09:06 Oxygen Flow Rate 0 06/02/19 09:06 Pain Level 3 06/02/19 09:06
[2019-06-02 09:39] LABS: Bilirubin Negative (Negative); Blood Moderate (Negative); Clarity Clear (Clear); Glucose Negative (Negative); Ketones Negative (Negative); Leukocyte Esterase Trace (Negative); Nitrite Positive (Negative); Urobilinogen 0.2 EU/dL (Up TO 0.2); pH 6.5 (5-8)
[2019-06-02 09:49] LABS: Epithelial Cells Negative HPF (Negative); Other Cells Few Renal (Negative); RBC >50 (0-2); WBC 20-50 HPF (0-5)
[2019-06-02 09:52] LABS: Bacteria Many HPF (Negative); C & S Indicated? Yes
[2019-06-02] MEDS: Cephalexin 500 MG CAP PO (10:20)
--- NOTE | 2019-06-02 17:46 | NUR.NOTE ---
Nursing Note: Faxed referral to Urology/[facility] and also faxed to [facility]. Elizabeth Hernandez.
== END 2019-06-02 11:20 | disposition home or self-care (01) ==
PROVIDERS: Emergency Provider Nurse Practitioner Family; PCP Internal Medicine
DX: R33.9 Retention of urine, unspecified (principal); K59.00 Constipation, unspecified; E11.22 Type 2 diabetes mellitus with diabetic chronic kidney disease; N18.9 Chronic kidney disease, unspecified; I12.9 Hypertensive chronic kidney disease with stage 1 through stage 4 chronic kidney disease, or unspecified chronic kidney disease
CPT/HCPCS: 51702; 99283; 74022; 81003; 81015; 87086

== ENCOUNTER 2019-06-09 01:20 | Outpatient (RCR) | payer MEDICARE, OTHER, SELFPAY ==
[2019-06-09] MEDS: Normal Saline Flush 10 ML SYR IVP (09:45)
[2019-06-09] MEDS: Heparin 500 UNITS/5 ML SYRINGE IV (09:45)
[2019-06-09 09:55] LABS: Abs Immature Grans 0.05 k/cumm (0.0-0.09); Absolute Basophil Count 0.04 k/cumm (0.0-0.2); Absolute Eosinophil Count 0.06 k/cumm (0.0-0.7); Absolute Lymphocyte Count 3.51 k/cumm (1.2-3.4); Absolute Neutrophil Count 7.41 k/cumm (1.2-6.7); Basophils % 0.3; Eosinophils % 0.5; HCT 39.4 % (40.0-50.0); HGB 13.2 g/dL (13.5-17.5); Immature Grans % 0.4; Lymphocytes % 27.7; Mean Corp. HGB Concentration 33.5 g/dL (32.0-36.0); Mean Corpuscular Hemoglobin 32.2 pg (27.0-33.0); Mean Corpuscular Volume 96.1 fL (80-95); Mean Platelet Volume 11.4 fL (8.0-11.0); Monocytes % 12.6; Neutrophils % 58.5; Platelet Count 143 x1000/uL (130-400); RBC Distribution Width 14.6 % (11.8-14.1); White Blood Cell Count 12.66 k/cumm (4.4-10.8)
[2019-06-09 10:11] LABS: ALT 27 U/L (12-78); AST 14 U/L (15-37); Albumin 3.5 g/dL (3.4-5.0); Alkaline Phosphatase 59 U/L (46-116); Anion Gap 8.8 mmol/L (3-11); BUN 35 mg/dL (7-18); Bilirubin, Total 1.2 mg/dL (0.2-1.0); CO2 28.2 mmol/L (21.0-32.0); CREATININE 1.38 mg/dL (0.70-1.30); Calcium 8.5 mg/dL (8.5-10.1); Chloride 105 mmol/L (98-107); Estimated GFR 49.33 (mL/min/1.73m2); Glucose 132 mg/dL (70-100); Sodium 142 mmol/L (136-145); Total Protein 6.3 g/dL (6.4-8.2)
[2019-06-09 10:15] LABS: Diff Comment Diff Reviewed; Poikilocytes 1+
[2019-06-09 10:22] LABS: LDH 188 U/L (85-227)
== END 2019-06-16 23:59 | disposition home or self-care (01) ==
LOC: INF 01:20
PROVIDERS: PCP Internal Medicine; Visit Provider Internal Medicine Hematology & Oncology
DX: C83.30 Diffuse large B-cell lymphoma, unspecified site (principal); Z45.2 Encounter for adjustment and management of vascular access device
CPT/HCPCS: 36591; 80053; 83615; 85025

== ENCOUNTER → 2019-06-11 08:22 | Outpatient (BNVA) | payer MEDICARE, OTHER, SELFPAY | PROVIDERS: PCP Internal Medicine; Visit Provider Urology | DX: R33.9 Retention of urine, unspecified (principal); N40.1 Benign prostatic hyperplasia with lower urinary tract symptoms; E11.9 Type 2 diabetes mellitus without complications; I10 Essential (primary) hypertension | CPT/HCPCS: 51798; 99203; 99211; 99214 ==

== ENCOUNTER 2019-06-11 17:56 | Emergency (ER) | payer MEDICARE, OTHER, SELFPAY ==
[2019-06-11 18:00] VITALS: BP 192/74; PULSE 76; RESP 20; TEMP 37.2; O2SAT 95
--- NOTE | 2019-06-11 18:15 | ED.GENADUL_ITS ---
Discharge Plan Disposition Patient Disposition: HOME Condition: Improving Discharge Details Chief Complaint: Urinary Clinical Impression: Acute urinary retention Primary Care Provider: Leo Vargas ED Provider: Rohini Scott Home Meds and New Rx's Prescriptions: Continued losartan 25 MG tablet 50 mg PO QAM RF: 0 aspirin 325 MG tablet 81 mg PO DAILY RF: 0 acyclovir 800 MG tablet 800 mg PO BID RF: 0 ezetimibe-simvastatin [Vytorin 10-80] 1 EACH tablet 1 ea PO DAILY RF: 0 colchicine 0.6 MG capsule 0.6 mg PO DAILY RF: 0 triamterene-hydrochlorothiazid 37.5-25 mg tablet 1 tab PO Q OTHER DAY RF: 0 Imbruvica 140 mg Capsule 560 mg PO DAILY RF: 0 docusate sodium 100 mg capsule 100 mg PO DAILY PRN (Reason: constipation) Qty: 14 RF: 0 tamsulosin [Flomax] 0.4 mg Capsule 0.4 mg PO DAILY Qty: 30 RF: 0 magnesium oxide 400 MG tablet 400 mg PO DAILY Qty: 30 RF: 0 Lactobacillus acidophilus capsule 100 mmu cells PO TID Qty: 90 RF: 0 Discharge Instructions Instructions: Urinary Retention in Men (ED) Additional Instructions: Follow-up with your scheduled appointment with Dr. Nj on Friday for evaluation. Return to the emergency department if you develop any worsening or new concerning symptoms of fever, abdominal pain or any other concerns. Referrals: Kobi Nj MD [ [facility] STAFF PHYSICIAN] - Discharge Data Discharge Physician: Rohini Scott Medical Decision Making 84-year-old male who was seen here last week for urinary retention and had Arango catheter placed who followed up with Dr. Nj today for Arango removal who presents with urinary retention over the past few hours. Dr. Nj's note from today noted that he was seen for a voiding trial today and was offered Arango catheter replacement or intermittent catheterization which patient refused. He denies fever. He does admit to lower abdominal discomfort which is now resolved after Arango catheter placed after arrival to the ED. 1100 cc of urine removed. Urine is clear and yellow. There is some blood-tinged urine after large amount of urine removed. Patient denies any complaints at this time. Urinalysis reviewed and notes 3-5 WBCs, trace leukocytes, few bacteria and negative epithelial cells. Discussed with laboratory and they will send for urine culture. Patient has a follow-up appointment with Dr. Nj on Friday. He is instructed to follow-up with his appointment for evaluation and possible Arango catheter removal. We will hold on antibiotics at this time. Patient is advised to return with fever, worsening pain or return of urinary retention. He was advised that he can expect to see some bloody urine within the bag, but if he is concerned of any acute worsening, blockage, shortness of breath or dizziness, to return to emergency department. Medical Records Medical records reviewed: Yes I reviewed the patient's medical records. Lab Data Lab results reviewed: Yes I reviewed the patient's lab results. 06/11/19 18:25 Urine - Voided Urine Culture - Pending Laboratory Tests Range/Units 06/11/19 18:25 Urine Color (Yellow) Yellow Urine Clarity (Clear) Clear Urine pH (5-8) 6.0 Ur Specific [place] (1.005-1.025) <= 1.005 Urine Protein (Negative) mg/dL Negative Urine Ketones (Negative) mg/dL Negative Urine Blood (Negative) Small H Urine Nitrite (Negative) Negative Urine Bilirubin (Negative) Negative Urine Urobilinogen (Up TO 0.2) EU/dL 0.2 Ur Leukocyte Esterase (Negative) Trace H Urine RBC (0-2) 0-2 Urine WBC (0-5) HPF 3-5 Ur Epithelial Cells (Negative) HPF Negative Urine Crystals (Negative) HPF Negative Urine Bacteria (Negative) HPF Few Urine Casts (Negative) LPF Negative Urine Mucus (Negative) Negative Urine Other (Negative) Negative Ur Culture Indicated? No Urine Glucose (Negative) mg/dL Negative HPI General Mode of arrival: ambulatory . Date/Time Provider Initiated Documentation: 06/11/19 18:11 . Limitations to Documentation: no limitations . Information obtained by: patient . HPI Narrative: Patient is an 84-year-old male with a history of BPH, diabetes, B-cell lymphoma, hypertension, hyperlipidemia who was seen here last week for urinary retention and had Arango catheter placed which was removed today by Dr. Nj and presents for urinary retention over the past several hours. Patient states he was able to urinate a small amount upon arrival to the ED but states it is a slow trickle. Patient admits to significant abdominal discomfort and bloating due to the retention. He denies any fever, nausea, vomiting, back pain. Related Data Home Medications Medication Instructions Recorded Confirmed losartan 50 mg PO QAM 02/04/13 06/11/19 acyclovir 800 mg PO BID 07/05/16 06/11/19 aspirin 81 mg PO DAILY 07/05/16 06/11/19 colchicine 0.6 mg PO DAILY 07/05/16 06/11/19 ezetimibe-simvastatin [Vytorin 1 ea PO DAILY 07/05/16 06/11/19 10-80] magnesium oxide 400 mg PO DAILY #30 tab 04/23/18 06/11/19 Lactobacillus acidophilus 100 mmu cells PO TID #90 cap 12/17/18 06/11/19 Imbruvica 560 mg PO DAILY 06/02/19 06/11/19 docusate sodium 100 mg PO DAILY PRN #14 cap 06/02/19 06/11/19 tamsulosin [Flomax] 0.4 mg PO DAILY #30 cap 06/02/19 06/11/19 triamterene 37.5 1 tab PO Q OTHER DAY tab 06/11/19 06/11/19 mg-hydrochlorothiazide 25 mg tablet Previous Rx's Medication Instructions Recorded magnesium oxide 400 mg PO DAILY #30 tab 04/23/18 Lactobacillus acidophilus 100 mmu cells PO TID #90 cap 12/17/18 docusate sodium 100 mg PO DAILY PRN #14 cap 06/02/19 tamsulosin [Flomax] 0.4 mg PO DAILY #30 cap 06/02/19 Allergies Allergy/AdvReac Type Severity Reaction Status Date / Time No Known Allergies Allergy Unverified 06/11/19 18:06 General Stated Complaint: Urinary DC: 3 Review of Systems Review of Systems All systems reviewed & are unremarkable except as noted in HPI and below Constitutional Reports as per HPI, Denies chills and Denies fever(s) Eyes Denies blurry vision ENT Denies dizziness, Denies sore throat and Denies throat swelling Cardiovascular Denies chest pain and Denies dyspnea Respiratory Denies cough and Denies dyspnea Gastrointestinal Reports abdominal pain (now resolved after arango ), Denies diarrhea and Denies vomiting Genitourinary Denies hematuria, Denies dysuria, Reports urinary hesitancy and Reports other Comments: urinary retention Musculoskeletal Denies back pain and Denies numbness Integumentary/Breasts Denies lesions and Denies rash Neurologic Denies dizziness, Denies focal weakness and Denies numbness Allergic/Immunologic Denies throat swelling [facility] Medical History Allergic rhinitis (Chronic) Benign prostatic hypertrophy without urinary obstruction (Chronic) Chronic renal impairment (Chronic) Diabetes type 2, controlled (Chronic) Diffuse large B cell lymphoma (Chronic) Gout (Chronic) Hypercholesterolemia (Chronic) Hypertension (Chronic) Peripheral venous insufficiency (Chronic) Polyp of colon (Inactive) Urinary retention (Acute) Surgical History Colonoscopy - MAC (Inactive 07/08/16) Mediport placement (Chronic) Family History Mother No problems noted. Father No problems noted. Social History Smoking/Tobacco Use Status: Never Alcohol Intake: never Drug use: Never Substance use type: does not use Do you feel safe at home: Yes Do you feel safe in your relationship?: Yes Exam Const General: cooperative, healthy appearing and no acute distress HENMT Head: normal to inspection Face and sinus: normal facial exam Eyes General: appearance normal, both eyes and all related structures EOM: EOM intact bilaterally Neck Neck: normal visual inspection and No submandibular swelling Lymphatic: no lymphadenopathy noted Chest Chest: normal inspection of the chest and no tenderness Resp Effort & Inspection: normal respiratory effort and able to speak in complete sentences Auscultation: clear to auscultation bilaterally Cardio Rate: regular rate Rhythm: regular rhythm GI Inspection: normal to inspection Palpation: soft, not firm, not rigid and nontender Auscultation: normal bowel sounds Penis: normal penis and other (arango catheter now present on exam ) Scrotum: scrotum normal Testes: no testicular mass, no testicular swelling and no testicular tenderness Skin General skin exam: no rashes or lesions noted Neuro General: alert, awake and oriented x3 Cognition: normal cognition Speech: speech normal Motor: muscle tone normal throughout Sensory Exam: no sensory deficits noted Extrem General: normal to inspection, full ROM, normal capillary refill, no calf tenderness bilaterally and no edema Psych Appearance: grossly normal Mental Status: mental status grossly normal Speech and Movement: speech and movement normal Affect: normal affect Course Vital Signs Temperature 99.0 F 06/11/19 18:00 Pulse 76 06/11/19 18:00 Respiratory Rate 20 06/11/19 18:00 Blood Pressure 192/74 H 06/11/19 18:00 Pulse Oximetry 95 06/11/19 18:00 Temperature 99.0 F 06/11/19 18:00 Pulse 76 06/11/19 18:00 Respiratory Rate 20 06/11/19 18:00 Respiratory Effort Non-Labored 06/11/19 18:00 Blood Pressure 192/74 H 06/11/19 18:00 Blood Pressure Position Sitting 06/11/19 18:00 Pulse Oximetry 95 06/11/19 18:00 Oxygen Delivery Method Room Air 06/11/19 18:00 Oxygen Flow Rate 0 06/11/19 18:00 Pain Level 3 06/11/19 18:06
[2019-06-11 18:32] LABS: Bilirubin Negative (Negative); Blood Small (Negative); Clarity Clear (Clear); Glucose Negative (Negative); Ketones Negative (Negative); Leukocyte Esterase Trace (Negative); Nitrite Negative (Negative); Specific Gravity <= 1.005 (1.005-1.025); Urobilinogen 0.2 EU/dL (Up TO 0.2)
[2019-06-11 18:39] LABS: Bacteria Few HPF (Negative); C & S Indicated? No; Casts Negative LPF (Negative); Crystals Negative HPF (Negative); Epithelial Cells Negative HPF (Negative); Mucus Negative (Negative); Other Cells Negative (Negative); RBC 0-2 (0-2)
[2019-06-11 19:00] VITALS: BP 164/82; PULSE 76; RESP 20; TEMP 37.2; O2SAT 95
== END 2019-06-11 19:03 | disposition home or self-care (01) ==
LOC: ER 18:53
PROVIDERS: Emergency Provider Physician Assistant; PCP Internal Medicine
DX: N40.1 Benign prostatic hyperplasia with lower urinary tract symptoms (principal); R33.8 Other retention of urine; E11.9 Type 2 diabetes mellitus without complications; I10 Essential (primary) hypertension
CPT/HCPCS: 51702; 51798; 99214; 99283; 81003; 81015; 87086

== ENCOUNTER → 2019-06-14 13:21 | Outpatient (BNVA) | payer MEDICARE, OTHER, SELFPAY | PROVIDERS: PCP Internal Medicine; Visit Provider Urology | DX: Z96.0 Presence of urogenital implants (principal); Z71.89 Other specified counseling; R33.9 Retention of urine, unspecified | CPT/HCPCS: 99212 ==

== ENCOUNTER → 2019-07-06 09:15 | Outpatient (BNVA) | payer MEDICARE, OTHER, SELFPAY | PROVIDERS: PCP Internal Medicine; Visit Provider Nurse Practitioner Gerontology | DX: R33.9 Retention of urine, unspecified (principal); Z96.0 Presence of urogenital implants | CPT/HCPCS: 99212 ==

== ENCOUNTER → 2019-07-12 08:49 | Outpatient (BNVA) | payer MEDICARE, OTHER, SELFPAY | PROVIDERS: PCP Internal Medicine; Visit Provider Nurse Practitioner Gerontology | DX: R33.9 Retention of urine, unspecified (principal); Z46.6 Encounter for fitting and adjustment of urinary device | CPT/HCPCS: 51702; 99212; 99213 ==

== ENCOUNTER 2019-08-04 02:21 | Outpatient (RCR) | payer MEDICARE, OTHER, SELFPAY ==
[2019-08-04 09:59] LABS: Abs Immature Grans 0.03 k/cumm (0.0-0.09); Absolute Basophil Count 0.05 k/cumm (0.0-0.2); Absolute Eosinophil Count 0.05 k/cumm (0.0-0.7); Absolute Lymphocyte Count 2.84 k/cumm (1.2-3.4); Absolute Monocyte Count 0.92 k/cumm (0.11-0.7); Absolute Neutrophil Count 5.89 k/cumm (1.2-6.7); Basophils % 0.5; Eosinophils % 0.5; HCT 37.7 % (40.0-50.0); HGB 12.3 g/dL (13.5-17.5); Immature Grans % 0.3; Mean Corp. HGB Concentration 32.6 g/dL (32.0-36.0); Mean Corpuscular Volume 98.2 fL (80-95); Mean Platelet Volume 11.5 fL (8.0-11.0); Monocytes % 9.4; Neutrophils % 60.3; RBC 3.84 m/cumm (4.50-6.00); RBC Distribution Width 14.3 % (11.8-14.1); White Blood Cell Count 9.78 k/cumm (4.4-10.8)
[2019-08-04 10:14] LABS: Diff Comment PLT Morph Reviewed; Platelet Count 147 x1000/uL (130-400); RBC Morphology Normal
[2019-08-04 10:21] LABS: ALT 15 U/L (16-63); AST 11 U/L (15-37); Albumin 3.4 g/dL (3.4-5.0); Alkaline Phosphatase 55 U/L (46-116); Anion Gap 6.9 mmol/L (3-11); BUN 34 mg/dL (7-18); CO2 30.1 mmol/L (21.0-32.0); CREATININE 1.46 mg/dL (0.70-1.30); Calcium 8.5 mg/dL (8.5-10.1); Chloride 105 mmol/L (98-107); Estimated GFR 46.23 (mL/min/1.73m2); Glucose 105 mg/dL (70-100); LDH 161 U/L (85-227); Potassium 4.3 mmol/L (3.5-5.1); Sodium 142 mmol/L (136-145); Total Protein 5.9 g/dL (6.4-8.2)
== END 2019-08-16 23:59 | disposition home or self-care (01) ==
LOC: INF 02:21
PROVIDERS: PCP Internal Medicine; Visit Provider Internal Medicine Hematology & Oncology
DX: C83.30 Diffuse large B-cell lymphoma, unspecified site (principal); Z45.2 Encounter for adjustment and management of vascular access device
CPT/HCPCS: 36591; 80053; 82784; 83615; 85025

== ENCOUNTER → 2019-08-09 11:10 | Outpatient (BNVA) | payer MEDICARE, OTHER, SELFPAY | PROVIDERS: PCP Internal Medicine; Visit Provider Nurse Practitioner Gerontology | DX: R33.9 Retention of urine, unspecified (principal); Z46.6 Encounter for fitting and adjustment of urinary device | CPT/HCPCS: 51702; 99213 ==

== ENCOUNTER 2019-09-01 08:57 | Outpatient (RCR) | payer MEDICARE, OTHER, SELFPAY ==
[2019-09-01] MEDS: Heparin 500 UNITS/5 ML SYRINGE (09:10)
[2019-09-01] MEDS: Normal Saline Flush 10 ML SYR 30 ML IVP (09:11)
== END 2019-09-16 23:59 | disposition home or self-care (01) ==
LOC: INF 08:57
PROVIDERS: PCP Internal Medicine; Visit Provider Internal Medicine Hematology & Oncology
DX: Z45.2 Encounter for adjustment and management of vascular access device (principal)
CPT/HCPCS: 96523

== ENCOUNTER → 2019-09-07 10:27 | Outpatient (BNVA) | payer MEDICARE, OTHER, SELFPAY | PROVIDERS: PCP Internal Medicine; Referring Provider Internal Medicine; Visit Provider Nurse Practitioner Gerontology | DX: R33.9 Retention of urine, unspecified (principal) | CPT/HCPCS: 51702; 99213 ==

== ENCOUNTER → 2019-09-10 07:51 | Outpatient (BNVA) | payer MEDICARE, OTHER, SELFPAY | PROVIDERS: PCP Internal Medicine; Referring Provider Internal Medicine; Visit Provider Urology | DX: R33.9 Retention of urine, unspecified (principal) | CPT/HCPCS: 99213 ==

== ENCOUNTER 2019-09-25 00:18 | Emergency (ER) | payer MEDICARE, OTHER, SELFPAY ==
--- NOTE | 2019-09-25 00:21 | ED.GENADUL_ITS ---
Discharge Plan Disposition Patient Disposition: HOME Condition: Good Discharge Details Chief Complaint: Urinary Clinical Impression: Complication of Finney catheter Primary Care Provider: Leo Vargas ED Provider: Jaime Cohn Home Meds and New Rx's Prescriptions: No Action finasteride 5 mg tablet 5 mg PO DAILY Qty: 90 RF: 4 losartan 25 MG tablet 50 mg PO QAM RF: 0 aspirin 325 MG tablet 81 mg PO DAILY RF: 0 acyclovir 800 MG tablet 800 mg PO BID RF: 0 ezetimibe-simvastatin [Vytorin 10-80] 1 EACH tablet 1 ea PO DAILY RF: 0 colchicine 0.6 MG capsule 0.6 mg PO DAILY RF: 0 triamterene-hydrochlorothiazid 37.5-25 mg tablet 1 tab PO Q OTHER DAY RF: 0 Imbruvica 140 mg Capsule 560 mg PO DAILY RF: 0 docusate sodium 100 mg capsule 100 mg PO DAILY PRN (Reason: constipation) Qty: 14 RF: 0 magnesium oxide 400 MG tablet 400 mg PO DAILY Qty: 30 RF: 0 Lactobacillus acidophilus capsule 100 mmu cells PO TID Qty: 90 RF: 0 Discharge Instructions Additional Instructions: If you notice any additional problems with your Finney catheter bag please return immediately. He should not have any issues now that a new bag has been placed. If you notice any worsening of your symptoms, or any new symptoms such as vomiting, diarrhea, fever, chills, shortness of breath, chest pain, numbness, weakness, or fainting , please return immediately to the emergency department for reevaluation. Please follow up with your primary care provider as soon as possible for reassessment and reevaluation. As always, it was a pleasure participating in your medical care today. Referrals: Leo Vargas MD [Primary Care Provider] - Medical Decision Making This is a pleasant 84-year-old gentleman who presents for Finney catheter bag problem. He has a chronic indwelling Finney catheter secondary to prostate issues. This evening he noticed a leak in his back and came to have it replaced. No other complications. Bag was replaced without difficulty using [place] tree adapter. Patient tolerated procedure well. He will be discharged home with his new bag. Discussed red flags which to return. I have extensively reviewed the treatment plan and discharge instructions with the patient. I have addressed all patient concerns at this time. The patient was made aware of what symptoms to monitor for that would warrant a return to the emergency department. Discussed the plan with the patient, they demonstrate verbal understanding and agreement with our assessment and plan at this time. HPI General Date/Time Provider Initiated Documentation: 09/25/19 00:21 . HPI Narrative: This is a pleasant 84-year-old male with a past medical history of chronic indwelling Finney catheter secondary to prostate issues who presents today for evaluation of Finney bag problem. Earlier this evening he noticed that there was a leak in the bottom of the Finney bag. He came in to have his Finney bag replaced. He denies any other complaints of fever, chills, flank pain, dysuria, or other complications of his Finney catheter. Related Data Home Medications Medication Instructions Recorded Confirmed losartan 50 mg PO QAM 02/04/13 09/07/19 acyclovir 800 mg PO BID 07/05/16 09/07/19 aspirin 81 mg PO DAILY 07/05/16 09/07/19 colchicine 0.6 mg PO DAILY 07/05/16 09/07/19 ezetimibe-simvastatin [Vytorin 1 ea PO DAILY 07/05/16 09/07/19 10-80] magnesium oxide 400 mg PO DAILY #30 tab 04/23/18 09/07/19 Lactobacillus acidophilus 100 mmu cells PO TID #90 cap 12/17/18 09/07/19 Imbruvica 560 mg PO DAILY 06/02/19 09/07/19 docusate sodium 100 mg PO DAILY PRN #14 cap 06/02/19 09/07/19 triamterene 37.5 1 tab PO Q OTHER DAY tab 06/11/19 09/07/19 mg-hydrochlorothiazide 25 mg tablet finasteride 5 mg tablet 5 mg PO DAILY #90 tab 09/10/19 09/10/19 Previous Rx's Medication Instructions Recorded magnesium oxide 400 mg PO DAILY #30 tab 04/23/18 Lactobacillus acidophilus 100 mmu cells PO TID #90 cap 12/17/18 docusate sodium 100 mg PO DAILY PRN #14 cap 06/02/19 finasteride 5 mg tablet 5 mg PO DAILY #90 tab 09/10/19 Allergies Allergy/AdvReac Type Severity Reaction Status Date / Time No Known Allergies Allergy Unverified 06/11/19 18:06 General DC: 3 Review of Systems All systems reviewed & are unremarkable except as noted in HPI and below PFSH Social History Smoking/Tobacco Use Status: Never Alcohol Intake: never Drug use: Never Substance use type: does not use Do you feel safe at home: Yes Do you feel safe in your relationship?: Yes Exam Narrative Exam Narrative: 1.Const: Well-nourished, Well-developed, appearing stated age 2.Eyes: PERRL, no conjunctival injection, and symmetrical lids. 3.ENT: Atraumatic external nose and ears. Moist MM. Neck: Symmetric, trachea midline, No thyromegaly. 4.CVS: +S1/S2, No murmurs or gallops. Peripheral pulses 2+ and equal in all extremities. Brisk capillary refill in all extremities. 5.RESP: Unlabored respiratory effort. Clear to auscultation bilaterally. No wheezes rales or rhonchi 6.GI: Soft, Nontender/Nondistended, No hepatosplenomegaly. No guarding or rebound. Genital exam was performed with female nurse at bedside. Normal male genitalia, Finney catheter in place, no evidence of abrasion or trauma. Finney catheter tubing is intact. Bag was replaced with [place] tree attachment, no complications. Patient tolerated well and is draining urine well. 7.MSK: Normocephalic/Atraumatic, Extremities w/o deformity or ttp No cyanosis or clubbing, Normal movement of all extremities 8.Skin: Warm, Dry. No rashes or lesions. 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 Sensation grossly intact, no focal neurologic deficits. 10.Psych: (AAO) x3. Appropriate mood and affect
[2019-09-25 00:22] VITALS: BP 172/64; PULSE 77; RESP 16; TEMP 36.8; O2SAT 97
== END 2019-09-25 00:30 | disposition home or self-care (01) ==
LOC: ER 00:33
PROVIDERS: Emergency Provider Student in an Organized Health Care Education/Training Program; PCP Internal Medicine
DX: T83.038A Leakage of other urinary catheter, initial encounter (principal); N18.9 Chronic kidney disease, unspecified; E11.22 Type 2 diabetes mellitus with diabetic chronic kidney disease; I12.9 Hypertensive chronic kidney disease with stage 1 through stage 4 chronic kidney disease, or unspecified chronic kidney disease; Z96.0 Presence of urogenital implants
CPT/HCPCS: 99282

== ENCOUNTER 2019-10-06 00:55 | Outpatient (RCR) | payer MEDICARE, OTHER, SELFPAY ==
[2019-10-06] MEDS: Normal Saline Flush 10 ML SYR IVP (08:06)
[2019-10-06] MEDS: Heparin 500 UNITS/5 ML SYRINGE IV (08:07)
[2019-10-06 08:14] LABS: Abs Immature Grans 0.05 k/cumm (0.0-0.09); Absolute Basophil Count 0.03 k/cumm (0.0-0.2); Absolute Eosinophil Count 0.05 k/cumm (0.0-0.7); Absolute Lymphocyte Count 2.92 k/cumm (1.2-3.4); Absolute Monocyte Count 0.94 k/cumm (0.11-0.7); Absolute Neutrophil Count 4.93 k/cumm (1.2-6.7); Basophils % 0.3; Eosinophils % 0.6; HCT 39.9 % (40.0-50.0); HGB 13.2 g/dL (13.5-17.5); Immature Grans % 0.6; Lymphocytes % 32.7; Mean Corp. HGB Concentration 33.1 g/dL (32.0-36.0); Mean Corpuscular Hemoglobin 32.8 pg (27.0-33.0); Mean Platelet Volume 10.9 fL (8.0-11.0); Monocytes % 10.5; Neutrophils % 55.3; Platelet Count 171 x1000/uL (130-400); RBC 4.03 m/cumm (4.50-6.00); RBC Distribution Width 13.6 % (11.8-14.1); White Blood Cell Count 8.92 k/cumm (4.4-10.8)
[2019-10-06 08:25] LABS: ALT 17 U/L (16-63); AST 12 U/L (15-37); Albumin 3.4 g/dL (3.4-5.0); Alkaline Phosphatase 59 U/L (46-116); Anion Gap 7.5 mmol/L (3-11); BUN 45 mg/dL (7-18); Bilirubin, Total 1.1 mg/dL (0.2-1.0); CO2 28.5 mmol/L (21.0-32.0); CREATININE 1.89 mg/dL (0.70-1.30); Calcium 8.7 mg/dL (8.5-10.1); Chloride 105 mmol/L (98-107); Estimated GFR 34.32 (mL/min/1.73m2); Glucose 135 mg/dL (74-106); LDH 211 U/L (85-227); Potassium 4.6 mmol/L (3.5-5.1); Sodium 141 mmol/L (136-145); Total Protein 5.9 g/dL (6.4-8.2)
== END 2019-10-16 23:59 | disposition home or self-care (01) ==
LOC: INF 00:55
PROVIDERS: PCP Internal Medicine; Visit Provider Internal Medicine Hematology & Oncology
DX: C83.30 Diffuse large B-cell lymphoma, unspecified site (principal); Z45.2 Encounter for adjustment and management of vascular access device
CPT/HCPCS: 36591; 80053; 83615; 85025

== ENCOUNTER → 2019-10-07 12:22 | Outpatient (BNVA) | payer MEDICARE, OTHER, SELFPAY | PROVIDERS: PCP Internal Medicine; Referring Provider Internal Medicine; Visit Provider Nurse Practitioner Gerontology | DX: R33.9 Retention of urine, unspecified (principal) | CPT/HCPCS: 51702; 99213 ==

== ENCOUNTER → 2019-11-04 11:16 | Outpatient (BNVA) | payer MEDICARE, OTHER, SELFPAY | PROVIDERS: PCP Internal Medicine; Referring Provider Internal Medicine; Visit Provider Nurse Practitioner Gerontology | DX: R33.9 Retention of urine, unspecified (principal); Z46.6 Encounter for fitting and adjustment of urinary device | CPT/HCPCS: 51702; 99212; 99213 ==

== ENCOUNTER 2019-11-16 01:30 | Outpatient (RCR) | payer MEDICARE, OTHER, SELFPAY ==
[2019-11-16] MEDS: Normal Saline Flush 10 ML SYR IVP (08:05)
[2019-11-16] MEDS: Heparin 500 UNITS/5 ML SYRINGE (08:06)
[2019-11-16 08:26] LABS: Abs Immature Grans 0.03 k/cumm (0.0-0.09); Absolute Basophil Count 0.04 k/cumm (0.0-0.2); Absolute Eosinophil Count 0.06 k/cumm (0.0-0.7); Absolute Lymphocyte Count 3.63 k/cumm (1.2-3.4); Absolute Monocyte Count 1.26 k/cumm (0.11-0.7); Absolute Neutrophil Count 2.26 k/cumm (1.2-6.7); Basophils % 0.5; Eosinophils % 0.8; HCT 40.2 % (40.0-50.0); HGB 13.6 g/dL (13.5-17.5); Immature Grans % 0.4; Lymphocytes % 49.9; Mean Corp. HGB Concentration 33.8 g/dL (32.0-36.0); Mean Corpuscular Hemoglobin 33.3 pg (27.0-33.0); Mean Corpuscular Volume 98.3 fL (80-95); Mean Platelet Volume 10.8 fL (8.0-11.0); Monocytes % 17.3; Neutrophils % 31.1; Platelet Count 173 x1000/uL (130-400); RBC 4.09 m/cumm (4.50-6.00); RBC Distribution Width 13.6 % (11.8-14.1); White Blood Cell Count 7.28 k/cumm (4.4-10.8)
[2019-11-16 09:09] LABS: ALT 16 U/L (16-63); AST 11 U/L (15-37); Albumin 3.5 g/dL (3.4-5.0); Alkaline Phosphatase 55 U/L (46-116); Anion Gap 7.3 mmol/L (3-11); BUN 41 mg/dL (7-18); Bilirubin, Total 1.3 mg/dL (0.2-1.0); CO2 28.7 mmol/L (21.0-32.0); CREATININE 1.68 mg/dL (0.70-1.30); Calcium 8.6 mg/dL (8.5-10.1); Chloride 106 mmol/L (98-107); Estimated GFR 39.31 (mL/min/1.73m2); Glucose 115 mg/dL (74-106); Sodium 142 mmol/L (136-145)
[2019-11-16 09:24] LABS: LDH 187 U/L (85-227)
== END 2019-11-16 23:59 | disposition home or self-care (01) ==
LOC: INF 01:30
PROVIDERS: PCP Internal Medicine; Visit Provider Internal Medicine Hematology & Oncology
DX: C83.30 Diffuse large B-cell lymphoma, unspecified site (principal); Z45.2 Encounter for adjustment and management of vascular access device
CPT/HCPCS: 36591; 80053; 83615; 85025

== ENCOUNTER 2019-12-01 00:44 | Outpatient (RCR) | payer MEDICARE, OTHER, SELFPAY ==
[2019-12-01] MEDS: Heparin 500 UNITS/5 ML SYRINGE IV (07:55)
[2019-12-01] MEDS: Normal Saline Flush 10 ML SYR IVP (07:55)
[2019-12-01 08:25] LABS: Abs Immature Grans 0.07 k/cumm (0.0-0.09); Absolute Basophil Count 0.05 k/cumm (0.0-0.2); Absolute Eosinophil Count 0.04 k/cumm (0.0-0.7); Absolute Lymphocyte Count 2.84 k/cumm (1.2-3.4); Absolute Monocyte Count 1.43 k/cumm (0.11-0.7); Absolute Neutrophil Count 6.18 k/cumm (1.2-6.7); Basophils % 0.5; Eosinophils % 0.4; HCT 41.8 % (40.0-50.0); HGB 13.9 g/dL (13.5-17.5); Immature Grans % 0.7 %; Lymphocytes % 26.8; Mean Corp. HGB Concentration 33.3 g/dL (32.0-36.0); Mean Corpuscular Hemoglobin 32.7 pg (27.0-33.0); Mean Corpuscular Volume 98.4 fL (80-95); Mean Platelet Volume 11.1 fL (8.0-11.0); Monocytes % 13.5; Neutrophils % 58.1; Platelet Count 159 x1000/uL (130-400); RBC 4.25 m/cumm (4.50-6.00); RBC Distribution Width 13.7 % (11.8-14.1); White Blood Cell Count 10.61 k/cumm (4.4-10.8)
[2019-12-01 08:37] LABS: ALT 14 U/L (16-63); AST 14 U/L (15-37); Albumin 3.5 g/dL (3.4-5.0); Alkaline Phosphatase 64 U/L (46-116); Anion Gap 6.8 mmol/L (3-11); BUN 33 mg/dL (7-18); Bilirubin, Total 1.4 mg/dL (0.2-1.0); CO2 30.2 mmol/L (21.0-32.0); CREATININE 1.59 mg/dL (0.70-1.30); Calcium 8.7 mg/dL (8.5-10.1); Chloride 104 mmol/L (98-107); Estimated GFR 41.89 (mL/min/1.73m2); Glucose 116 mg/dL (74-106); Potassium 4.1 mmol/L (3.5-5.1); Sodium 141 mmol/L (136-145); Total Protein 6.1 g/dL (6.4-8.2)
[2019-12-01 08:57] LABS: LDH 228 U/L (85-227)
== END 2019-12-17 23:59 | disposition home or self-care (01) ==
LOC: INF 00:44
PROVIDERS: PCP Internal Medicine; Visit Provider Internal Medicine Hematology & Oncology
DX: C83.30 Diffuse large B-cell lymphoma, unspecified site (principal); Z45.2 Encounter for adjustment and management of vascular access device
CPT/HCPCS: 36591; 80053; 83615; 85025

== ENCOUNTER → 2019-12-02 08:56 | Outpatient (BNVA) | payer MEDICARE, OTHER, SELFPAY | PROVIDERS: PCP Internal Medicine; Referring Provider Internal Medicine; Visit Provider Nurse Practitioner Gerontology | DX: R33.8 Other retention of urine (principal) | CPT/HCPCS: 51702; 99213 ==

== ENCOUNTER 2019-12-10 10:50 | Outpatient (REF) | payer MEDICARE, OTHER, SELFPAY ==
[2019-12-11 14:23] LABS: Campylobacter PCR Negative (Negative); Salmonella PCR Negative (Negative); Shiga Toxin PCR Negative (Negative); Shigella/Enteroinvasive Ecoli Negative (Negative)
== END 2019-12-10 11:10 ==
LOC: NCHCN 10:50
PROVIDERS: PCP Internal Medicine; Visit Provider Internal Medicine
DX: R19.7 Diarrhea, unspecified (principal)
CPT/HCPCS: 87505; 82272; 83630; 87324

== ENCOUNTER 2019-12-22 02:32 | Outpatient (RCR) | payer MEDICARE, OTHER, SELFPAY ==
[2019-12-22] MEDS: Normal Saline Flush 10 ML SYR IVP (08:15)
[2019-12-22] MEDS: Heparin 500 UNITS/5 ML SYRINGE IV (08:15)
[2019-12-22 08:23] LABS: Abs Immature Grans 0.11 k/cumm (0.0-0.09); Absolute Basophil Count 0.05 k/cumm (0.0-0.2); Absolute Eosinophil Count 0.04 k/cumm (0.0-0.7); Absolute Monocyte Count 1.38 k/cumm (0.11-0.7); Absolute Neutrophil Count 6.53 k/cumm (1.2-6.7); Basophils % 0.5; Eosinophils % 0.4; HCT 40.1 % (40.0-50.0); HGB 13.3 g/dL (13.5-17.5); Immature Grans % 1.1 %; Lymphocytes % 22.1; Mean Corp. HGB Concentration 33.2 g/dL (32.0-36.0); Mean Corpuscular Hemoglobin 32.8 pg (27.0-33.0); Mean Corpuscular Volume 98.8 fL (80-95); Mean Platelet Volume 11.1 fL (8.0-11.0); Monocytes % 13.3; Neutrophils % 62.6; Platelet Count 178 x1000/uL (130-400); RBC 4.06 m/cumm (4.50-6.00); RBC Distribution Width 14.2 % (11.8-14.1); White Blood Cell Count 10.41 k/cumm (4.4-10.8)
[2019-12-22 08:33] LABS: ALT 25 U/L (16-63); AST 18 U/L (15-37); Albumin 3.3 g/dL (3.4-5.0); Alkaline Phosphatase 85 U/L (46-116); Anion Gap 6.6 mmol/L (3-11); BUN 30 mg/dL (7-18); Bilirubin, Total 1.2 mg/dL (0.2-1.0); CO2 29.4 mmol/L (21.0-32.0); CREATININE 1.59 mg/dL (0.70-1.30); Calcium 8.4 mg/dL (8.5-10.1); Chloride 104 mmol/L (98-107); Estimated GFR 41.89 (mL/min/1.73m2); Glucose 133 mg/dL (74-106); LDH 292 U/L (85-227); Potassium 4.2 mmol/L (3.5-5.1); Sodium 140 mmol/L (136-145); Total Protein 5.8 g/dL (6.4-8.2)
== END 2020-01-15 23:59 | disposition home or self-care (01) ==
LOC: INF 02:32
PROVIDERS: PCP Internal Medicine; Visit Provider Internal Medicine Hematology & Oncology
DX: C83.30 Diffuse large B-cell lymphoma, unspecified site (principal); Z45.2 Encounter for adjustment and management of vascular access device
CPT/HCPCS: 36591; 80053; 83615; 85025

== ENCOUNTER → 2019-12-31 09:18 | Outpatient (BNVA) | payer MEDICARE, OTHER, SELFPAY | PROVIDERS: PCP Internal Medicine; Referring Provider Internal Medicine; Visit Provider Urology | DX: R33.9 Retention of urine, unspecified (principal) | CPT/HCPCS: 51702; 99212 ==

== ENCOUNTER → 2020-01-27 10:22 | Outpatient (BNVA) | payer MEDICARE, OTHER, SELFPAY | PROVIDERS: PCP Internal Medicine; Referring Provider Internal Medicine; Visit Provider Nurse Practitioner Gerontology | DX: R33.8 Other retention of urine (principal) | CPT/HCPCS: 51702; 99213 ==

== ENCOUNTER 2020-02-08 20:18 | Emergency (ER) | payer MEDICARE, OTHER, SELFPAY ==
[2020-02-08] VITALS (29 sets, daily range): BP systolic 121–149; BP diastolic 37–61; PULSE 77–92; RESP 14–22; TEMP 36.6; O2SAT 93–99
--- NOTE | 2020-02-08 20:34 | ED.GENADUL_ITS ---
Discharge Plan Disposition Patient Disposition: HOME Condition: Good Discharge Details Chief Complaint: Nausea/Vomit/Diar Clinical Impression: Diarrhea, Leukocytosis Primary Care Provider: Leo Vargas ED Provider: Immanuel Miguel Wylie Meds and New Rx's Prescriptions: New loperamide 2 mg capsule 2 mg PO Q6H PRN (Reason: loose stool) Qty: 30 RF: 0 Continued finasteride 5 mg tablet 5 mg PO DAILY Qty: 90 RF: 4 losartan 25 MG tablet 50 mg PO QAM RF: 0 aspirin 325 MG tablet 81 mg PO DAILY RF: 0 acyclovir 800 MG tablet 800 mg PO BID RF: 0 ezetimibe-simvastatin [Vytorin 10-80] 1 EACH tablet 1 ea PO DAILY RF: 0 colchicine 0.6 MG capsule 0.6 mg PO DAILY RF: 0 triamterene-hydrochlorothiazid 37.5-25 mg tablet 1 tab PO Q OTHER DAY RF: 0 Imbruvica 140 mg Capsule 560 mg PO DAILY RF: 0 docusate sodium 100 mg capsule 100 mg PO DAILY PRN (Reason: constipation) Qty: 14 RF: 0 tamsulosin [Flomax] 0.4 mg Capsule 0.8 mg PO DAILY RF: 0 magnesium oxide 400 MG tablet 400 mg PO DAILY Qty: 30 RF: 0 Lactobacillus acidophilus capsule 100 mmu cells PO TID Qty: 90 RF: 0 prochlorperazine maleate 5 mg tablet 5 mg PO PRN PRN (Reason: Nausea) RF: 0 allopurinol 300 mg tablet 300 mg PO DAILY RF: 0 loperamide [Imodium A-D] 2 mg Capsule 2 mg PO Q4H PRNRF: 0 Discharge Instructions Instructions: Acute Diarrhea (ED) Additional Instructions: Try to drink plenty of fluids to stay hydrated. Wilfrid diet and loperamide to try to firm up stool. Discontinue the Imodium while using loperamide. Bring sample to your appointment tomorrow morning at cancer center so it may be run for testing. Keep your appointment at the cancer center as scheduled tomorrow. Return to ED for fever, bloody diarrhea, worsening abdominal pain, vomiting, other concerns or problems. Referrals: Cristal Bain MD [ [facility]] - Leo Vargas MD [Primary Care Provider] - Medical Decision Making Patient presenting with complaint of diarrhea and weakness. He has no other complaints of. He is not having hematochezia, abdominal pain, fever. He is on chemotherapy. Review of the 3 drugs that he received for his first round all include diarrhea is a common reaction. We did review [facility] center notes and [facility] system. He has been told to use Imodium which he apparently has been using without help. His exam is unremarkable. His vital signs are normal. Port is accessed and laboratory studies obtained. Fluids given for hydration. Stool for C. difficile ordered. Patient laboratory studies significant for white count of 35,000. If anything I would have expected him to have a low white count. Because of this CT of the chest abdomen pelvis was ordered. Other laboratory studies unremarkable. He only has mild anemia and has normal platelets. Electrolytes are good. If anything magnesium is elevated but he takes magnesium daily. Renal function is about baseline. CT scan shows evidence of his cancer with bony mets which are known. He does have some progression of some pulmonary fibrotic changes but no consolidations and no groundglass appearance. There is no evidence of colitis, obstruction, enteritis on CT. Urine is clearing up with fluids and is not as dark as it was previously. There is no overt sign of pus or sediment. We will not culture as he has chronic indwelling Finney. We will start the patient on loperamide. We will give a second liter of LR. He has an appointment to be seen in the [facility] center in the morning at 830. He has not been able to provide stool sample here so we will send him home with a collection cup. He may return this to the [facility] to have it tested for C. difficile as well as stool pathogens given his elevated white count. However, I am not starting him on antibiotics empirically as I do not wish to make his diarrhea worse. I did speak to the patient's daughter with his permission. She is aware of the plan. Patient will be discharged home and has a friend coming to pick him up. Medical Records Medical records reviewed: Yes I reviewed the patient's medical records. Lab Data Lab results reviewed: Yes I reviewed the patient's lab results. HPI General Mode of arrival: EMS . Date/Time Provider Initiated Documentation: 02/08/20 20:33 . Limitations to Documentation: no limitations . Information obtained by: patient, EMS, RN notes reviewed and old records reviewed . HPI Narrative: Patient presents to ED with complaint of diarrhea. Patient is undergoing chemotherapy with Polatuzumab/Bendamustine/Rituxan for lymphoma. Since the first round he has had diarrhea which has become progressively worse despite using Imodium. He denies any fever, abdominal pain, vomiting, hematochezia. He denies any cough, shortness of breath, chest pain. He has a chronic indwelling Finney. Today he has felt extremely weak and tired. Continues to have large amounts of watery soft diarrhea. He does have an appointment to be seen at the cancer center tomorrow. However he felt extremely weak tonight and came in for evaluation. Related Data Home Medications Medication Instructions Recorded Confirmed losartan 50 mg PO QAM 02/04/13 02/08/20 acyclovir 800 mg PO BID 07/05/16 02/08/20 aspirin 81 mg PO DAILY 07/05/16 02/08/20 colchicine 0.6 mg PO DAILY 07/05/16 02/08/20 ezetimibe-simvastatin [Vytorin 1 ea PO DAILY 07/05/16 02/08/20 10-80] magnesium oxide 400 mg PO DAILY #30 tab 04/23/18 02/08/20 Lactobacillus acidophilus 100 mmu cells PO TID #90 cap 12/17/18 09/25/19 Imbruvica 560 mg PO DAILY 06/02/19 02/08/20 docusate sodium 100 mg PO DAILY PRN #14 cap 06/02/19 09/25/19 triamterene 37.5 1 tab PO Q OTHER DAY tab 06/11/19 02/08/20 mg-hydrochlorothiazide 25 mg tablet finasteride 5 mg tablet 5 mg PO DAILY #90 tab 09/10/19 02/08/20 tamsulosin [Flomax] 0.8 mg PO DAILY 09/25/19 02/08/20 allopurinol 300 mg PO DAILY 02/08/20 02/08/20 loperamide [Imodium A-D] 2 mg PO Q4H PRN 02/08/20 02/08/20 prochlorperazine maleate 5 mg PO PRN PRN 02/08/20 02/08/20 loperamide 2 mg PO Q6H PRN #30 cap 02/09/20 Previous Rx's Medication Instructions Recorded magnesium oxide 400 mg PO DAILY #30 tab 04/23/18 Lactobacillus acidophilus 100 mmu cells PO TID #90 cap 12/17/18 docusate sodium 100 mg PO DAILY PRN #14 cap 06/02/19 finasteride 5 mg tablet 5 mg PO DAILY #90 tab 09/10/19 loperamide 2 mg PO Q6H PRN #30 cap 02/09/20 Allergies Allergy/AdvReac Type Severity Reaction Status Date / Time No Known Allergies Allergy Unverified 02/08/20 20:26 General Stated Complaint: Nausea/Vomit/Diar DC: 3 Review of Systems Narrative: As documented in HPI otherwise negative as below. Const: no fever, chills, weakness Resp: no cough, SOB, pleuritic pain CV: no CP, diaphoresis, edema, syncope GI: diarrhea; no abdominal pain, nausea, vomiting Neuro: no headache, numbness, focal weakness, confusion PFSH Medical History Allergic rhinitis (Chronic) Benign prostatic hypertrophy without urinary obstruction (Chronic) Chronic renal impairment (Chronic) Diabetes type 2, controlled (Chronic) Diffuse large B cell lymphoma (Chronic) Gout (Chronic) Hypercholesterolemia (Chronic) Hypertension (Chronic) Peripheral venous insufficiency (Chronic) Polyp of colon (Inactive) Urinary retention (Acute) Surgical History Colonoscopy - MAC (Inactive 07/08/16) Mediport placement (Chronic) Social History Smoking/Tobacco Use Status: Never Alcohol Intake: never Drug use: Never Substance use type: does not use Do you feel safe at home: Yes Do you feel safe in your relationship?: Yes Exam Narrative Exam Narrative: Vitals: Afebrile. Normal vitals. Normal room air pulse oximetry. Const: WDWN elderly male in NAD. HEENT: NC/AT. Normal facial exam. Eyes: Normal conjunctiva and sclera. Neck: Supple. Trachea midline. Lungs: Normal respiratory effort. Lungs with a few rales/rhonchi in the bases that clear some with deep breathing. Cor: RRR without murmur/gallop. Good radial pulses. Port in the left upper chest. GI: Soft. NT/ND. No guarding or rebound. Neuro: A+O x 3. Normal speech, mentation, gait. Cranial nerves II - XII grossly intact. No gross motor or sensory deficit. Ext: No C/C/E. Skin: Warm and dry without rash. Course Vital Signs Vital signs: Vital Signs Temperature 97.9 F 02/08/20 20:17 Pulse 92 H 02/08/20 20:17 Respiratory Rate 16 02/08/20 20:17 Blood Pressure 139/61 02/08/20 20:17 Pulse Oximetry 97 02/08/20 20:17 Temperature 97.9 F 02/08/20 20:17 Pulse 92 H 02/08/20 20:17 Respiratory Rate 16 02/08/20 20:17 Blood Pressure 139/61 02/08/20 20:17 Pulse Oximetry 97 02/08/20 20:17 Pain Level 0 02/08/20 20:17
[2020-02-08 21:03] LABS: HCT 36.3 % (40.0-50.0); HGB 12.3 g/dL (13.5-17.5); Mean Corp. HGB Concentration 33.9 g/dL (32.0-36.0); Mean Corpuscular Hemoglobin 33.2 pg (27.0-33.0); Mean Corpuscular Volume 97.8 fL (80-95); Mean Platelet Volume 11.8 fL (8.0-11.0); Platelet Count 160 x1000/uL (130-400); RBC 3.71 m/cumm (4.50-6.00); RBC Distribution Width 14.6 % (11.8-14.1)
[2020-02-08] MEDS: Lactated Ringers 1,000 ML 1000 ML IV ×2 (21:04→23:57)
[2020-02-08 21:19] LABS: ALT 32 U/L (16-63); AST 74 U/L (15-37); Albumin 2.9 g/dL (3.4-5.0); Alkaline Phosphatase 334 U/L (46-116); Anion Gap 8.9 mmol/L (3-11); BUN 32 mg/dL (7-18); Bilirubin, Total 0.9 mg/dL (0.2-1.0); CO2 26.1 mmol/L (21.0-32.0); CREATININE 1.83 mg/dL (0.70-1.30); Calcium 7.6 mg/dL (8.5-10.1); Chloride 101 mmol/L (98-107); Estimated GFR 35.62 (mL/min/1.73m2); Glucose 128 mg/dL (74-106); Magnesium 2.7 mg/dL (1.8-2.4); Potassium 3.8 mmol/L (3.5-5.1); Sodium 136 mmol/L (136-145); Total Protein 5.8 g/dL (6.4-8.2)
[2020-02-08 21:27] LABS: Absolute Lymphocyte Count 2.51 k/cumm (1.2-3.4); Absolute Monocyte Count 3.22 k/cumm (0.11-0.7); Absolute Neutrophil Count 30.07 k/cumm (1.2-6.7); Atypical Lymphocytes % 5; Diff Comment Manual Differential
[2020-02-08 21:28] LABS: Microcytosis 1+; Polychromasia Present
--- NOTE | 2020-02-08 22:20 | DI.CT_ITS ---
EXAM: CT CHEST/ABD/PEL WO CLINICAL HISTORY: chemo patient, diarrhea, WBC 35k. TECHNIQUE: Imaging Protocol: Axial computed tomography images with coronal and sagittal reformatted images were created and reviewed. FINDINGS: Chest: Thyroid: Unremarkable. Tracheobronchial tree: Unremarkable. Aorta: Atherosclerosis. No aneurysm. Heart: No cardiomegaly. No pericardial effusion. Coronary artery stents versus calcifications. Tubes, lines: Tip of the Port-A-Cath is seen in good position in the superior vena cava. Lymph nodes: No adenopathy. Pleural space: Possible tiny right pleural effusion. No left pleural effusion. Lungs: Bronchiectatic changes in the lower lobes bilaterally. Peribronchial and septal thickening. No focal consolidating infiltrates are present. No pulmonary nodules. Bones: Interval development of multiple sclerotic foci in the thoracic spine and ribs suggesting meta static disease. ABDOMEN: Liver: Normal density. No measurable mass. There is a stable cyst in the posterior segment of the rig ht lobe of the liver. Gallbladder and biliary tract: No radiodense calculus or biliary ductal dilation. Pancreas: Normal density, no abnormal calcifications or inflammatory process. Spleen: Normal. Kidneys: Normal size, contour and axis. No radiodense stones or obstructive uropathy. There is a stab le cyst in the midpole of the left kidney. Adrenal glands: There is stable nodularity of the right adrenal gland. The left adrenal gland is unre markable. Lymph nodes: Since the prior examination, there has developed retroperitoneal and iliac adenopathy. T he largest lymph nodes are in the periaortic region. The largest measures 1.4 cm in diameter and is l ocated just below the level of the left renal vein. The largest iliac lymph node is seen in the left iliac chain and measures 1.3 cm in diameter. Abdominal Aorta: Abdominal portion non-dilated. PELVIS: Bladder: There is a Finney catheter within the urinary bladder. Air is seen within the dependent porti on of the urinary bladder likely iatrogenic. There is a question of mild thickening of the wall of th e urinary bladder. This may reflect poor distention, but an inflammatory or infectious cystitis canno t be excluded nor can chronic outlet obstruction. Bowel: Since the prior examination, the right inguinal hernia now contains a loop of sigmoid colon. N o bowel wall thickening is seen in the involved colonic loop. No definite evidence of obstruction is seen. There is fluid seen in the distal colon which can be seen with a diarrheal illness. Peritoneal cavity: No ascites, collection or mesenteric inflammatory response. Reproductive organs: Prostate gland is enlarged. Bones: Since the prior examination, there have developed multiple sclerotic osseous lesions suspiciou s for metastatic disease. Soft Tissues: There is a small fat containing umbilical hernia. IMPRESSION: 1. New retroperitoneal adenopathy since 10/07/2018. 2. New diffuse osseous metastatic disease. 3. Interval herniation of a loop of sigmoid colon into the right inguinal hernia. No definite evidenc e of incarceration or obstruction. 4. Distal colonic fluid suggesting diarrheal illness. 5. Urinary bladder wall thickness. This may be due to underdistention but cystitis or chronic obstruc tion cannot be excluded. 6. Progressive fibrotic changes in the lung bases. DATA REPOSITORY: All CT scans at this facility are submitted to the National Radiology Data Registry (NRDR) Dose Index Registry (DIR) with the [employer] ([employer]). RADIATION OPTIMIZATION: All CT scans at this facility use at least one of these dose optimization te chniques: automated exposure control; mA and/or kV adjustment per patient size (includes targeted exa ms where dose is matched to clinical indication); or iterative reconstruction.
--- NOTE | 2020-02-08 23:19 | DI.VRAD_ITS ---
PROCEDURE INFORMATION: Exam: CT Chest Without Contrast Exam date and time: 02/08/2020 9:41 PM Age: 84 years old Clinical indication: Abnormal findings; Abnormal lab test; Elevated wbc; Abnormal diagnostic tests; Abnormal ekg; Other: Chemo PT, wbc 35k; Prior surgery; Surgery date: 1-6 months; Surgery type: Port placement; Patient HX: Chemo PT, diarrhea, wbc 35k TECHNIQUE: Imaging protocol: Computed tomography of the chest without contrast. Radiation optimization: All CT scans at this facility use at least one of these dose optimization techniques: automated exposure control; mA and/or kV adjustment per patient size (includes targeted exams where dose is matched to clinical indication); or iterative reconstruction. COMPARISON: CT Abdomen^CAP STAGING (Adult) 10/07/2018 9:45 AM FINDINGS: Tubes, catheters and devices: Infusion catheter entering from a left subclavian approach terminates in the superior vena cava just above the right atrium. Lungs: There has been mild progression of bibasilar mild bronchiectasis with peribronchial and interlobular septal thickening. No focal consolidation. No pulmonary nodule. Pleural space: Unremarkable. No pneumothorax. No pleural effusion. Heart: There are coronary vascular stents or possibly calcifications. Aorta: Unremarkable. No aortic aneurysm. Lymph nodes: Unremarkable. No enlarged lymph nodes. Bones/joints: There are faint sclerotic foci throughout the thoracic spine which are new since the comparison study. Soft tissues: Unremarkable. IMPRESSION: 1. Progression of bibasilar pulmonary fibrotic changes. 2. New thoracic bone metastases. PROCEDURE INFORMATION: Exam: CT Abdomen And Pelvis Without Contrast Exam date and time: 02/08/2020 9:41 PM Age: 84 years old Clinical indication: Abnormal findings; Abnormal lab test; Elevated wbc; Abnormal diagnostic tests; Abnormal ekg; Other: Chemo PT, wbc 35k; Prior surgery; Surgery date: 1-6 months; Surgery type: Port placement; Patient HX: Chemo PT, diarrhea, wbc 35k TECHNIQUE: Imaging protocol: Computed tomography of the abdomen and pelvis without contrast. Radiation optimization: All CT scans at this facility use at least one of these dose optimization techniques: automated exposure control; mA and/or kV adjustment per patient size (includes targeted exams where dose is matched to clinical indication); or iterative reconstruction. COMPARISON: CT Abdomen^CAP STAGING (Adult) 10/07/2018 9:45 AM FINDINGS: Liver: There is a 9 mm cyst in the posterior segment of the right lobe of the liver unchanged. The liver is otherwise grossly unremarkable within the limitations of a noncontrast study. Gallbladder and bile ducts: The gallbladder is normal. Pancreas: The pancreas is normal. Spleen: The spleen is normal. Adrenals: A 10 mm nodule at the inferior tip of the right adrenal gland may represent an adjacent node or adrenal nodule. It is unchanged since the most recent comparison study but smaller than on February 24, 2017. The left adrenal gland is unremarkable. Kidneys and ureters: There is a 2.7 cm left renal cyst. No renal calculus or hydronephrosis on either side. Stomach and bowel: There is fluid within the distal colon consistent with diarrhea. There is no small or large bowel dilatation. No mucosal thickening. Appendix: No evidence of appendicitis. Intraperitoneal space: Unremarkable. No free air. No significant fluid collection. Vasculature: The aorta demonstrates moderate atherosclerotic calcification. Lymph nodes: There are abnormally enlarged periaortic lymph nodes which are new since the comparison study. This includes left periaortic nodes measuring up to 14 mm in diameter just below the level of the renal vein in several subcentimeter pre aortic nodes. There is a 13 mm lymph node along the proximal left iliac chain and a 6 mm node just below the aortic bifurcation. Bladder: Finney catheter within urinary bladder along with a small amount of air which is presumably iatrogenic. There is mild urinary bladder wall thickening which may represent cystitis or chronic obstruction in the appropriate clinical setting but also could be due to poor distention. Reproductive: Prostatomegaly. Bones/joints: There are multiple faintly sclerotic bone lesions 5 in both hips as well as the pubic, ischial, and ileal bones and sacrum and scattered throughout the thoracolumbar spine. Soft tissues: The previous fat containing right inguinal hernia now contains a portion of the sigmoid colon without evidence of obstruction or incarceration. Fat containing left inguinal hernia again noted. Other findings: There is eventration of the right hemidiaphragm. IMPRESSION: 1. New retroperitoneal adenopathy including left periaortic and iliac chain nodes. 2. New diffuse bone metastases involving both hips, pelvis, and lumbosacral spine. 3. Herniation of sigmoid colon into right inguinal hernia without incarceration or obstruction. 4. Distal colonic fluid suggesting diarrhea. 5. Finney catheter and presumably iatrogenic gas within the urinary bladder. Urinary bladder wall thickness may be due to poor distention although cystitis or chronic obstruction cannot be excluded. Dictated and Authenticated by: Yasir Singh MD. Ordering:SAM Gambino MD
[2020-02-08] MEDS: Loperamide 2 MG CAP PO (23:57)
[2020-02-09] VITALS: PULSE 76; RESP 18
[2020-02-09 00:01] VITALS: BP 142/44; PULSE 76; PULSE 80; RESP 15
[2020-02-09 00:10] VITALS: PULSE 76; RESP 14
[2020-02-09 00:20] VITALS: PULSE 75; RESP 16
[2020-02-09 00:30] VITALS: PULSE 79; RESP 15
[2020-02-09] MEDS: Heparin 500 UNITS/5 ML SYRINGE (00:35)
== END 2020-02-09 | disposition home or self-care (01) ==
PROVIDERS: Emergency Provider Emergency Medicine; PCP Internal Medicine
DX: R19.7 Diarrhea, unspecified (principal); D72.829 Elevated white blood cell count, unspecified; R53.1 Weakness; Z95.828 Presence of other vascular implants and grafts; C83.30 Diffuse large B-cell lymphoma, unspecified site; C79.51 Secondary malignant neoplasm of bone; Z96.0 Presence of urogenital implants; Z79.899 Other long term (current) drug therapy
CPT/HCPCS: 36591; 71250; 80053; 96360; 96361; 99285; 74176; 83735; 85025; 99284

== ENCOUNTER 2020-02-09 08:07 | Outpatient (REF) | payer MEDICARE, OTHER, SELFPAY ==
[2020-02-10 14:17] LABS: Campylobacter PCR Negative (Negative); Salmonella PCR Negative (Negative); Shiga Toxin PCR Negative (Negative); Shigella/Enteroinvasive Ecoli Negative (Negative)
== END 2020-02-09 08:27 ==
LOC: LBN 08:07
PROVIDERS: PCP Internal Medicine; Referring Provider Internal Medicine Hematology & Oncology; Visit Provider Internal Medicine
DX: R19.7 Diarrhea, unspecified (principal)
CPT/HCPCS: 87505; 87324

== ENCOUNTER 2020-02-10 10:00 | Outpatient (RCR) | payer MEDICARE, OTHER, SELFPAY ==
[2020-01-19] MEDS: Normal Saline Flush 10 ML SYR IVP (13:15)
[2020-01-19] MEDS: Heparin 500 UNITS/5 ML SYRINGE IV (13:16)
[2020-01-19 13:27] LABS: Abs Immature Grans 0.12 k/cumm (0.0-0.09); Absolute Basophil Count 0.05 k/cumm (0.0-0.2); Absolute Eosinophil Count 0.06 k/cumm (0.0-0.7); Absolute Lymphocyte Count 3.75 k/cumm (1.2-3.4); Absolute Monocyte Count 1.44 k/cumm (0.11-0.7); Absolute Neutrophil Count 6.79 k/cumm (1.2-6.7); Basophils % 0.4; Eosinophils % 0.5; HCT 39.5 % (40.0-50.0); HGB 13.5 g/dL (13.5-17.5); Lymphocytes % 30.7; Mean Corp. HGB Concentration 34.2 g/dL (32.0-36.0); Mean Corpuscular Hemoglobin 33.6 pg (27.0-33.0); Mean Corpuscular Volume 98.3 fL (80-95); Mean Platelet Volume 11.1 fL (8.0-11.0); Monocytes % 11.8; Neutrophils % 55.6; Platelet Count 193 x1000/uL (130-400); RBC 4.02 m/cumm (4.50-6.00); White Blood Cell Count 12.21 k/cumm (4.4-10.8)
[2020-01-19 13:50] LABS: ALT 11 U/L (16-63); AST 21 U/L (15-37); Albumin 3.3 g/dL (3.4-5.0); Alkaline Phosphatase 157 U/L (46-116); Anion Gap 5.5 mmol/L (3-11); BUN 28 mg/dL (7-18); CO2 30.5 mmol/L (21.0-32.0); CREATININE 1.38 mg/dL (0.70-1.30); Calcium 8.6 mg/dL (8.5-10.1); Chloride 102 mmol/L (98-107); Estimated GFR 49.33 (mL/min/1.73m2); Glucose 78 mg/dL (74-106); LDH 275 U/L (85-227); Potassium 4.2 mmol/L (3.5-5.1); Sodium 138 mmol/L (136-145); Total Protein 6.2 g/dL (6.4-8.2)
[2020-02-02 07:22] LABS: HCT 39.3 % (40.0-50.0); Mean Corp. HGB Concentration 33.1 g/dL (32.0-36.0); Mean Corpuscular Hemoglobin 32.7 pg (27.0-33.0); Mean Platelet Volume 10.7 fL (8.0-11.0); Platelet Count 181 x1000/uL (130-400); RBC 3.97 m/cumm (4.50-6.00); RBC Distribution Width 14.2 % (11.8-14.1); White Blood Cell Count 11.69 k/cumm (4.4-10.8)
[2020-02-02 07:53] LABS: Absolute Lymphocyte Count 3.51 k/cumm (1.2-3.4); Absolute Monocyte Count 1.87 k/cumm (0.11-0.7); Absolute Neutrophil Count 6.31 k/cumm (1.2-6.7); Atypical Lymphocytes % 2; Diff Comment Manual Differential
[2020-02-02 07:54] LABS: ALT 12 U/L (16-63); AST 27 U/L (15-37); Albumin 3.2 g/dL (3.4-5.0); Alkaline Phosphatase 219 U/L (46-116); Anion Gap 6.4 mmol/L (3-11); BUN 29 mg/dL (7-18); Bilirubin, Total 1.2 mg/dL (0.2-1.0); CO2 30.6 mmol/L (21.0-32.0); CREATININE 1.58 mg/dL (0.70-1.30); Calcium 8.3 mg/dL (8.5-10.1); Chloride 103 mmol/L (98-107); Glucose 131 mg/dL (74-106); LDH 304 U/L (85-227); Potassium 4.1 mmol/L (3.5-5.1); Schistocytes 1+; Sodium 140 mmol/L (136-145); Total Protein 6.1 g/dL (6.4-8.2)
[2020-02-02] MEDS: Normal Saline Flush 10 ML SYR IVP (08:16)
[2020-02-02 18:12] LABS: Uric Acid 7.6 mg/dL (3.5-7.2)
[2020-02-09 08:00] LABS: LDH 1309 U/L (85-227)
== END 2020-02-15 23:59 | disposition home or self-care (01) ==
LOC: INF 10:00
PROVIDERS: PCP Internal Medicine; Visit Provider Internal Medicine Hematology & Oncology
DX: C83.30 Diffuse large B-cell lymphoma, unspecified site (principal); Z45.2 Encounter for adjustment and management of vascular access device; R19.7 Diarrhea, unspecified
CPT/HCPCS: 36591; 80053; 83615; 84550; 85025

== ENCOUNTER 2020-02-11 09:28 | Emergency (ER) | payer MEDICARE, OTHER, SELFPAY ==
[2020-02-11 09:37] VITALS: BP 103/44; PULSE 90; TEMP 37.1; O2SAT 95
[2020-02-11 09:47] VITALS: RESP 13
--- NOTE | 2020-02-11 09:59 | ED.GENADUL_ITS ---
Discharge Plan Disposition Patient Disposition: HOME Condition: Stable Discharge Details Chief Complaint: GenMedical Clinical Impression: Fatigue, Decreased appetite Primary Care Provider: Leo Vargas ED Provider: Shawna Holloway Home Meds and New Rx's Prescriptions: New ondansetron HCl [Zofran] 4 mg tablet 4 mg PO Q8H PRN (Reason: nausea and vomiting) Qty: 10 RF: 0 Continued finasteride 5 mg tablet 5 mg PO DAILY Qty: 90 RF: 4 losartan 25 MG tablet 50 mg PO QAM RF: 0 aspirin 325 MG tablet 81 mg PO DAILY RF: 0 acyclovir 800 MG tablet 800 mg PO BID RF: 0 ezetimibe-simvastatin [Vytorin 10-80] 1 EACH tablet 1 ea PO DAILY RF: 0 colchicine 0.6 MG capsule 0.6 mg PO DAILY RF: 0 triamterene-hydrochlorothiazid 37.5-25 mg tablet 1 tab PO Q OTHER DAY RF: 0 Imbruvica 140 mg Capsule 560 mg PO DAILY RF: 0 tamsulosin [Flomax] 0.4 mg Capsule 0.4 mg PO DAILY RF: 0 magnesium oxide 400 MG tablet 400 mg PO DAILY Qty: 30 RF: 0 prochlorperazine maleate 5 mg tablet 5 mg PO PRN PRN (Reason: Nausea) RF: 0 allopurinol 300 mg tablet 300 mg PO DAILY RF: 0 loperamide 2 mg capsule 2 mg PO Q6H PRN (Reason: loose stool) Qty: 30 RF: 0 ondansetron 8 mg Tablet,Disintegrating 8 mg PO Q8H PRNRF: 0 polyethylene glycol 3350 17 gram Powder In Packet 17 g PO DAILY PRNRF: 0 Discharge Instructions Instructions: Fatigue (ED) Additional Instructions: Follow up with primary care provider in 3-5 days. Return to ED sooner if any worsening or concerns. Increase oral fluids. Take medications as directed. Try the Zofran and then 20 to 30 minutes later try eating. Please follow-up with your PCP. Return for any fever, diarrhea vomiting or any other concerns. Referrals: Leo Vargas MD [Primary Care Provider] - Discharge Data Discharge Date/Time-TO BE ENTERED AT DEPARTURE: 02/11/20 11:45 Medical Decision Making 84-year-old male with a history of BPH, type 2 diabetes, large B-cell lymphoma and high cholesterol presents with generalized fatigue, decreased appetite. He states that he started a new chemo treatment approximately 10 days ago and had some side effects including diarrhea. The diarrhea has now subsided over the last 4 to 5 days he has not had any episodes of diarrhea and is taking Imodium at home. He denies any pain no abdominal pain no chest pain no shortness of breath. He denies fever or chills. On arrival his vital signs are stable. He is not sure when his next follow-up appointment is with his oncologist. 1003: At this time patient has no complaints other than generalized fatigue and a decreased appetite. He has no pain no fever his vital signs are normal. I will draw a BMP to check electrolytes and give him Zofran and attempt p.o. challenge and hopefully quit discharge. Instructions to follow-up with oncologist. 1121: Patient taking PO orange juice without difficulty and is resting, breathing eupneic. Patient was able to tolerate crackers prior to discharge. Plan is to discharge patient home with follow-up with PCP. BMP is returned which shows mildly hyponatremia at 135, potassium is 3.4, BUN and creatinine are slightly elevated. At this time I feel it is safe for him to be discharged with strict return instructions and instructions to increase oral intake. HPI General Mode of arrival: ambulatory . Date/Time Provider Initiated Documentation: 02/11/20 09:30 . Limitations to Documentation: no limitations . Information obtained by: patient . HPI Narrative: 84-year-old male with a histo ry of BPH, type 2 diabetes, large B-cell lymphoma and high cholesterol presents with generalized fatigue, decreased appetite. He states that he started a new chemo treatment approximately 10 days ago and had some side effects including diarrhea. The diarrhea has now subsided over the last 4 to 5 days he has not had any episodes of diarrhea and is taking Imodium at home. He denies any pain no abdominal pain no chest pain no shortness of breath. He denies fever or chills. On arrival his vital signs are stable. He is not sure when his next follow-up appointment is with his oncologist. Related Data Home Medications Medication Instructions Recorded Confirmed losartan 50 mg PO QAM 02/04/13 02/11/20 acyclovir 800 mg PO BID 07/05/16 02/11/20 aspirin 81 mg PO DAILY 07/05/16 02/11/20 colchicine 0.6 mg PO DAILY 07/05/16 02/11/20 ezetimibe-simvastatin [Vytorin 1 ea PO DAILY 07/05/16 02/11/20 10-80] magnesium oxide 400 mg PO DAILY #30 tab 04/23/18 02/11/20 Imbruvica 560 mg PO DAILY 06/02/19 02/11/20 triamterene 37.5 1 tab PO Q OTHER DAY tab 06/11/19 02/11/20 mg-hydrochlorothiazide 25 mg tablet finasteride 5 mg tablet 5 mg PO DAILY #90 tab 09/10/19 02/11/20 tamsulosin [Flomax] 0.4 mg PO DAILY 09/25/19 02/11/20 allopurinol 300 mg PO DAILY 02/08/20 02/11/20 prochlorperazine maleate 5 mg PO PRN PRN 02/08/20 02/11/20 loperamide 2 mg PO Q6H PRN #30 cap 02/09/20 02/11/20 ondansetron 8 mg PO Q8H PRN 02/11/20 02/11/20 ondansetron HCl [Zofran] 4 mg PO Q8H PRN #10 tab 02/11/20 polyethylene glycol 3350 17 g PO DAILY PRN 02/11/20 02/11/20 Previous Rx's Medication Instructions Recorded magnesium oxide 400 mg PO DAILY #30 tab 04/23/18 finasteride 5 mg tablet 5 mg PO DAILY #90 tab 09/10/19 loperamide 2 mg PO Q6H PRN #30 cap 02/09/20 ondansetron HCl [Zofran] 4 mg PO Q8H PRN #10 tab 02/11/20 Allergies Allergy/AdvReac Type Severity Reaction Status Date / Time No Known Allergies Allergy Unverified 02/11/20 09:56 General Stated Complaint: GenMedical DC: 3 Review of Systems Narrative: Constitutional: Reports generalized fatigue, alert and oriented, well groomed, normal body habitus, appears comfortable. HEENT: Denies trauma, headaches, blurry vision, nasal discharge, sore throat, trouble swallowing. Chest: Denies chest pain, palpitations, irregular rhythm, hypertension. Respiratory: Denies Shortness of breath, cough, hemoptysis. GI: Denies abdominal pain, nausea, vomiting, diarrhea, constipation. : Denies dysuria, hematuria, flank pain, rectal bleeding. Neuro: Denies dizziness, blurry vision, weakness, syncope, headache or facial numbness. Hematologic: Denies easy bruising, intolerance to heat or cold, hair loss. [facility] Medical History Allergic rhinitis (Chronic) Benign prostatic hypertrophy without urinary obstruction (Chronic) Chronic renal impairment (Chronic) Diabetes type 2, controlled (Chronic) Diffuse large B cell lymphoma (Chronic) Gout (Chronic) Hypercholesterolemia (Chronic) Hypertension (Chronic) Peripheral venous insufficiency (Chronic) Polyp of colon (Inactive) Urinary retention (Acute) Surgical History Colonoscopy - MAC (Inactive 07/08/16) Mediport placement (Chronic) Family History Mother No problems noted. Father No problems noted. Social History Smoking/Tobacco Use Status: Never Alcohol Intake: never Drug use: Never Substance use type: does not use Do you feel safe at home: Yes Do you feel safe in your relationship?: Yes Additional Social history: three years ago. Exam Narrative Exam Narrative: Constitutional: Allert and oriented x3. Appears stated age. Normal body habitus. Head: Normocephalic, no trauma. Eyes: Pupils PERRLA, Red reflex noted, EOM's intact. Eyelids symmetrical withour lesions, discharge, or swelling. ENT: Bilateral TM's WNL, External ear normal to inspection, no mastoid TTP, swelling, or erythema, Nasal turbinates WNL, no nasal discharge. Normal dentition, Posterior pharynx WNL, no exudate. Chest: RRR, Normal S1, S2, distal pulses intact. Resp: Lungs clear to auscultation bilaterally, no wheezes, rales, or rhonchi. Abdomen: Soft nontender to palpation normal active bowel sounds. : Does have an in place Finney catheter and a leg bag. Musculoskeletal: Normal gait, 5/5 strength to all four extremities. Skin: No suspicious rashes or lesions. Capillary refill less than 2 sec. Neurologic: Cranial nerves II-XII intact. Alert and oriented x 3. DTR's intact. Hematologic/Lymphatic: No ecchymosis, no lymphadenopathy. Course Vital Signs Vital signs: Vital Signs Temperature 37.1 C 02/11/20 09:37 Pulse 90 02/11/20 09:37 Blood Pressure 103/44 L 02/11/20 09:37 Pulse Oximetry 95 02/11/20 09:37 Temperature 37.1 C 02/11/20 09:37 Temperature Source Skin 02/11/20 09:37 Pulse 90 02/11/20 09:37 Respiratory Rate 13 02/11/20 09:47 Respiratory Effort Non-Labored 02/11/20 09:47 Respiratory Depth Normal 02/11/20 09:47 Respiratory Pattern Normal 02/11/20 09:47 Blood Pressure 103/44 L 02/11/20 09:37 Blood Pressure Position Sitting 02/11/20 09:37 Pulse Oximetry 95 02/11/20 09:37 Oxygen Delivery Method Room Air 02/11/20 09:37 Oxygen Flow Rate 0 02/11/20 09:37 Pain Level 0 02/11/20 09:37 Comment 02/11/20 09:37
[2020-02-11] MEDS: Ondansetron O.D.T. 4 MG TABEF PO (10:09)
[2020-02-11 11:02] LABS: Anion Gap 12.5 mmol/L (3-11); BUN 37 mg/dL (7-18); CO2 22.5 mmol/L (21.0-32.0); CREATININE 2.24 mg/dL (0.70-1.30); Calcium 6.7 mg/dL (8.5-10.1); Chloride 100 mmol/L (98-107); Estimated GFR 28.21 (mL/min/1.73m2); Glucose 243 mg/dL (74-106); Potassium 3.4 mmol/L (3.5-5.1); Sodium 135 mmol/L (136-145)
[2020-02-11 11:30] VITALS: BP 102/45; PULSE 85; RESP 18; O2SAT 96
[2020-02-11] MEDS: Ondansetron O.D.T. 4 MG TABEF, 3 TABS/BTL PO (11:30)
[2020-02-11 11:41] VITALS: BP 102/45; PULSE 85; RESP 18; O2SAT 96
== END 2020-02-11 11:45 | disposition home or self-care (01) ==
PROVIDERS: Emergency Provider Registered Nurse Emergency; PCP Internal Medicine
DX: R53.83 Other fatigue (principal); R63.0 Anorexia; R19.7 Diarrhea, unspecified; T45.1X5A Adverse effect of antineoplastic and immunosuppressive drugs, initial encounter; C83.30 Diffuse large B-cell lymphoma, unspecified site; I10 Essential (primary) hypertension; E11.9 Type 2 diabetes mellitus without complications
CPT/HCPCS: 36415; 80048; 99283

== ENCOUNTER 2020-02-12 10:20 | Emergency (ER) | payer MEDICARE, OTHER, SELFPAY ==
--- NOTE | 2020-02-12 10:20 | W.ED.GENAD ---
Discharge Plan Disposition Patient Disposition: HOME Condition: Improving Discharge Details Chief Complaint: GenMedical Clinical Impression: Generalized weakness, Diarrhea, Status post chemotherapy Primary Care Provider: Leo Vargas ED Provider: Rohini Scott Home Meds and New Rx's Prescriptions: Continued finasteride 5 mg tablet 5 mg PO DAILY Qty: 90 RF: 4 losartan 25 MG tablet 50 mg PO QAM RF: 0 aspirin 325 MG tablet 81 mg PO DAILY RF: 0 acyclovir 800 MG tablet 800 mg PO BID RF: 0 ezetimibe-simvastatin [Vytorin 10-80] 1 EACH tablet 1 ea PO DAILY RF: 0 colchicine 0.6 MG capsule 0.6 mg PO DAILY RF: 0 triamterene-hydrochlorothiazid 37.5-25 mg tablet 1 tab PO Q OTHER DAY RF: 0 Imbruvica 140 mg Capsule 560 mg PO DAILY RF: 0 tamsulosin [Flomax] 0.4 mg Capsule 0.4 mg PO DAILY RF: 0 magnesium oxide 400 MG tablet 400 mg PO DAILY Qty: 30 RF: 0 prochlorperazine maleate 5 mg tablet 5 mg PO PRN PRN (Reason: Nausea) RF: 0 allopurinol 300 mg tablet 300 mg PO DAILY RF: 0 loperamide 2 mg capsule 2 mg PO Q6H PRN (Reason: loose stool) Qty: 30 RF: 0 polyethylene glycol 3350 17 gram Powder In Packet 17 g PO DAILY PRNRF: 0 ondansetron HCl [Zofran] 4 mg tablet 4 mg PO Q8H PRN (Reason: nausea and vomiting) Qty: 10 RF: 0 loratadine 10 mg Tablet 10 mg PO DAILY RF: 0 Discharge Instructions Instructions: Acute Diarrhea (ED), Weakness (ED) Additional Instructions: Drink plenty of fluids and get plenty of rest. Resume taking your daily magnesium. Take the Zofran or Compazine that you have at home as needed and directed for nausea or vomiting. You will receive a call from care management on Friday regarding plan for help at home including the possibility of home health, or a short-term assisted living. Call your primary care doctor on Friday to schedule a follow-up appointment for reevaluation and follow up on ionized calcium level within the next week. Return to the emergency department if you develop any worsening or new concerning symptoms such as fever, persistent vomiting, or worsening weakness. Discharge Data Discharge Physician: Rohini Scott Medical Decision Making 1030 -- 84-year-old male with a history of BPH, type 2 diabetes, hyperlipidemia, large B cell lymphoma 10 days s/p chemotherapy presents with generalized fatigue, decreased appetite. This is the patient's 3rd visit for similar complaints in 5 days. He is 10 days s/p chemotherapy. HR mildly tachycardic and BP minimally low. He appears in no acute distress. Abd soft and nontender. R leg urine bag w/ dark colored urine noted and dried stool around leg. As his stool is becoming more formed, doubt C. difficile colitis. Will check screening labs and give fluids. Patient has stated that he did not feel safe to go home. As patient is currently undergoing chemotherapy and immunocompromised, would not recommend admission to the hospital if not appropriate. Case discussed with care management to see whether home health could be arranged as soon as possible. 1230 -- Labs reviewed. White blood cell count 16, which is down from 35. Hemoglobin 11. Potassium 3.3. Creatinine 2.23, slightly improved from yesterday 2.24. Calcium downtrending to 6.5. May be medication including chemo related. Magnesium level and ionized calcium level added. Patient has not been taking any of his medications including daily magnesium. Will replete potassium and give a dose of his magnesium. T bili slightly increased at 1.2. Mild increase in liver enzymes. 1345 -- care management discussed with patient at bedside. He stated that he needs some help with some ADLs at home. Patient declined to stay with his daughter over the weekend. Placement in a rehab or assisted living facility not possible over the weekend. Admission was discussed as well as the risks of exposure to multiple infections including possible coronavirus which is concerning in patient's immunocompromised state. Patient states that he feels okay to go home. He was able to eat a bowl of soup here and ambulate on his own without difficulty. Disposition decision made weighing the risks and benefits of hospitalization versus outpatient treatment, the risk for further decompensation, and the patient's wishes. Care management will reach out to patient on Friday regarding plan for help at home. Possibilities include rehab, [place] assisted living facility, home health. Patient was advised to return here with any worsening or concerning symptoms. Medical Records Medical records reviewed: Yes I reviewed the patient's medical records. Lab Data Lab results reviewed: Yes I reviewed the patient's lab results. Labs: Laboratory Tests Range/Units 02/12/20 02/12/20 10:10 10:10 WBC (4.4-10.8) k/cumm 16.43 H RBC (4.50-6.00) m/cumm 3.47 L Hgb (13.5-17.5) g/dL 11.6 L Hct (40.0-50.0) % 33.6 L MCV (80-95) fL 96.8 H MCH (27.0-33.0) pg 33.4 H MCHC (32.0-36.0) g/dL 34.5 RDW (11.8-14.1) % 14.6 H Plt Count (130-400) x1000/uL 200 MPV (8.0-11.0) fL 10.5 Immature Gran % % 0.0 Neutrophils % 75.0 Band Neutrophils % % 12.0 Lymphocytes % 3.0 Monocytes % 10.0 Eosinophils % 0.0 Basophils % 0.0 Absolute Neutrophils (1.2-6.7) k/cumm 14.29 H Absolute Lymphocytes (1.2-3.4) k/cumm 0.49 L Absolute Monocytes (0.11-0.7) k/cumm 1.64 H Absolute Eosinophils (0.0-0.7) k/cumm 0.00 Absolute Basophils (0.0-0.2) k/cumm 0.00 Nucleated RBCs /100WBC 0 Differential Comment Manual differential RBC Morphology See below Polychromasia Present Poikilocytosis 1+ Basophilic Stippling Present Anisocytosis 1+ Sodium (136-145) mmol/L 134 L Potassium (3.5-5.1) mmol/L 3.3 L Chloride (98-107) mmol/L 98 Carbon Dioxide (21.0-32.0) mmol/L 24.0 Anion Gap (3-11) mmol/L 12.0 H BUN (7-18) mg/dL 42 H Creatinine (0.70-1.30) mg/dL 2.23 H Estimated GFR/1.73 m2 (mL/min/1.73m2) 28.35 Glucose (74-106) mg/dL 173 H Calcium (8.5-10.1) mg/dL 6.5 L Total Bilirubin (0.2-1.0) mg/dL 1.8 H AST (15-37) U/L 71 H ALT (16-63) U/L 64 H Alkaline Phosphatase (46-116) U/L 225 H Total Protein (6.4-8.2) g/dL 5.8 L Albumin (3.4-5.0) g/dL 2.4 L HPI General Mode of arrival: EMS. Date/Time Provider Initiated Documentation: 02/12/20 10:28. Limitations to Documentation: no limitations. Information obtained by: patient. HPI Narrative: Pt is an 84yo M with a history of BPH, type 2 diabetes, high cholesterol and large B cell lymphoma 10 days s/p chemotherapy who presents to the ED w/ a c/o decreased appetite and generalized weakness since yesterday. He states he has been able to drink fluids but not eat. Pt was seen in the ED yesterday for the same complaint and discharged to home with zofran. He states he has been taking Zofran every 6 hours and this has been helping him with drinking fluids. He denies any recent fever, nausea, vomiting, abdominal pain, chest pain, shortness of breath or urinary symptoms. He was also seen here 4 days ago for diarrhea and weakness. He states his stool was watery but now more formed and still somewhat loose. He states he lives alone and does not feel safe at home. He has been ambulating to the bathroom without any assistance. He states his daughter lives in [facility] and is in a wheelchair. He states his son lives in [place]. He states he has never gotten home health. Related Data Home Medications Medication Instructions Recorded Confirmed losartan 50 mg PO QAM 02/04/13 02/12/20 acyclovir 800 mg PO BID 07/05/16 02/12/20 aspirin 81 mg PO DAILY 07/05/16 02/12/20 colchicine 0.6 mg PO DAILY 07/05/16 02/12/20 ezetimibe-simvastatin [Vytorin 1 ea PO DAILY 07/05/16 02/12/20 10-80] magnesium oxide 400 mg PO DAILY #30 tab 04/23/18 02/12/20 Imbruvica 560 mg PO DAILY 06/02/19 02/12/20 triamterene 37.5 1 tab PO Q OTHER DAY tab 06/11/19 02/12/20 mg-hydrochlorothiazide 25 mg tablet finasteride 5 mg tablet 5 mg PO DAILY #90 tab 09/10/19 02/12/20 tamsulosin [Flomax] 0.4 mg PO DAILY 09/25/19 02/12/20 allopurinol 300 mg PO DAILY 02/08/20 02/12/20 prochlorperazine maleate 5 mg PO PRN PRN 02/08/20 02/12/20 loperamide 2 mg PO Q6H PRN #30 cap 02/09/20 02/12/20 ondansetron HCl [Zofran] 4 mg PO Q8H PRN #10 tab 02/11/20 02/12/20 polyethylene glycol 3350 17 g PO DAILY PRN 02/11/20 02/12/20 loratadine 10 mg PO DAILY 02/12/20 02/12/20 Previous Rx's Medication Instructions Recorded magnesium oxide 400 mg PO DAILY #30 tab 04/23/18 finasteride 5 mg tablet 5 mg PO DAILY #90 tab 09/10/19 loperamide 2 mg PO Q6H PRN #30 cap 02/09/20 ondansetron HCl [Zofran] 4 mg PO Q8H PRN #10 tab 02/11/20 Allergies Allergy/AdvReac Type Severity Reaction Status Date / Time No Known Allergies Allergy Unverified 02/12/20 10:31 General DC: 3 Review of Systems All systems reviewed & are unremarkable except as noted in HPI and below Constitutional Constitutional: Reports as per HPI, Denies chills, Denies fever(s), Reports poor appetite and Reports weakness Eyes Eyes: Denies blurry vision ENT Ears, Nose, Mouth, and Throat: Denies dizziness, Denies sore throat and Denies throat swelling Cardiovascular Cardiovascular: Denies chest pain and Denies dyspnea Respiratory Respiratory: Denies cough and Denies dyspnea Gastrointestinal Gastrointestinal: Denies abdominal pain, Reports diarrhea and Denies vomiting Genitourinary Genitourinary: Denies hematuria and Denies dysuria Musculoskeletal Musculoskeletal: Denies back pain and Denies numbness Integumentary/Breasts Skin/Breast: Denies lesions and Denies rash Neurologic Neurologic: Denies dizziness, Denies localized weakness, Denies numbness and Reports weakness Allergic/Immunologic Allergic/Immunologic: Denies throat swelling [facility] Social History Smoking/Tobacco Use Status: Never Alcohol Intake: never Drug use: Never Substance use type: does not use Do you feel safe at home: No Do you feel safe in your relationship?: Yes Additional Social history: three years ago. Believes at current time he is in no position to be at home with his weakness and loss of appetite Exam Const General: cooperative, no acute distress and ill appearing chronically HENMT Head: normal to inspection Face and sinus: normal facial exam Eyes General: appearance normal, both eyes and all related structures EOM: EOM intact bilaterally Neck Neck: normal visual inspection and No submandibular swelling Lymphatic: no lymphadenopathy noted Chest Chest: normal inspection of the chest and no tenderness Resp Effort & Inspection: normal respiratory effort and able to speak in complete sentences Auscultation: clear to auscultation bilaterally Cardio Rate: regular rate Rhythm: regular rhythm GI Inspection: normal to inspection Palpation: soft, not firm, not rigid and nontender Auscultation: normal bowel sounds Male General Exam: Yes other (arango in place ) Scrotum: scrotum normal Skin General skin exam: no rashes or lesions noted Neuro General: patient alert, patient awake and patient oriented x3 Cognition: normal cognition Speech: speech normal Motor: muscle tone normal throughout Sensory Exam: no sensory deficits noted Extrem General: full ROM and no edema Other: Right lower leg urine bag. Dark urine noted in bag. There is dried brown stool noted around leg. Psych Appearance: grossly normal Mental Status: mental status grossly normal Speech and Movement: speech and movement normal Affect: normal affect
[2020-02-12 10:22] VITALS: BP 106/56; PULSE 103; RESP 18; TEMP 36.9; O2SAT 96
[2020-02-12] MEDS: Normal Saline 1,000 ML 1000 ML IV (10:30)
[2020-02-12 10:31] VITALS: RESP 18
[2020-02-12 10:44] LABS: HCT 33.6 % (40.0-50.0); HGB 11.6 g/dL (13.5-17.5); Mean Corp. HGB Concentration 34.5 g/dL (32.0-36.0); Mean Corpuscular Hemoglobin 33.4 pg (27.0-33.0); Mean Corpuscular Volume 96.8 fL (80-95); Mean Platelet Volume 10.5 fL (8.0-11.0); Platelet Count 200 x1000/uL (130-400); RBC 3.47 m/cumm (4.50-6.00); RBC Distribution Width 14.6 % (11.8-14.1); White Blood Cell Count 16.43 k/cumm (4.4-10.8)
[2020-02-12 11:06] LABS: ALT 64 U/L (16-63); AST 71 U/L (15-37); Albumin 2.4 g/dL (3.4-5.0); Alkaline Phosphatase 225 U/L (46-116); BUN 42 mg/dL (7-18); Bilirubin, Total 1.8 mg/dL (0.2-1.0); CREATININE 2.23 mg/dL (0.70-1.30); Calcium 6.5 mg/dL (8.5-10.1); Chloride 98 mmol/L (98-107); Estimated GFR 28.35 (mL/min/1.73m2); Glucose 173 mg/dL (74-106); Potassium 3.3 mmol/L (3.5-5.1); Sodium 134 mmol/L (136-145); Total Protein 5.8 g/dL (6.4-8.2)
[2020-02-12 11:23] LABS: Absolute Lymphocyte Count 0.49 k/cumm (1.2-3.4); Absolute Monocyte Count 1.64 k/cumm (0.11-0.7); Absolute Neutrophil Count 14.29 k/cumm (1.2-6.7)
[2020-02-12 11:29] LABS: Anisocytosis 1+; Diff Comment Manual Differential; Nucleated RBC 0 /100WBC
[2020-02-12 11:30] LABS: Basophilic Stippling Present; Polychromasia Present
[2020-02-12 11:31] LABS: Poikilocytes 1+
[2020-02-12 12:05] VITALS: BP 116/53; PULSE 82; RESP 16; TEMP 37.4; O2SAT 96
[2020-02-12] MEDS: Normal Saline 1,000 ML 150 ML IV (12:25)
[2020-02-12] MEDS: Magnesium Oxide 400 MG TAB 800 MG PO (14:10)
[2020-02-12] MEDS: Potassium Chloride 20 MEQ TABCR 40 MEQ PO (14:10)
--- NOTE | 2020-02-12 14:12 | PDOC.ERCMPRO ---
- If Service Date Differs Date of service: 02/12/20 Time of Service: 14:12 Care Management Progress Note CM was asked by ED provider to see Patel regarding home care needs. Patel stated that he feels that he is no longer able to care for himself. He has had cancer for 7 years and has undergone several courses of chemotherapy, the most recent of which was on 02/02/20. Patel stated that this last chemo caused a lot of side effects, including diarrhea and he is becoming weaker. Various options were discussed including short and residential rehab, private caregivers, home health and possible support from the [facility]. Patel does have some VA benefits including for life but has not been receiving medical care from them. he also receives a pension from the [employer]. CM reached out to the [facility] [place] but they were not able to provide any information since he has never been treated there. FRANCINE also contacted [facility] to determine if there have been any changes made to the Medicare rules for admission during the current pandemic and is awaiting a response. Patel has 2 children but staying with either one of them is not an option. FRANCINE met with Patel again after making the above calls and in discussion he stated that he felt he would be safe to go home for the weekend. He has a friend that willl transport him home. When questioned, Patel stated he has a walker but had not been using it. He agreed to try using it while he is feeling weaker. On Friday, FRANCINE will follow up with [facility], the [facility] and also with Patel's PCP in [place].Efforts will be made to secure additional home help or short term rehab with the possibility of longer term care should the need arise.
[2020-02-12 14:18] LABS: Magnesium 2.2 mg/dL (1.8-2.4)
[2020-02-12 14:27] VITALS: BP 139/52; PULSE 90; RESP 16; TEMP 37.5; O2SAT 97
== END 2020-02-12 15:24 | disposition home or self-care (01) ==
PROVIDERS: Emergency Provider Physician Assistant; PCP Internal Medicine
DX: R53.1 Weakness (principal); R19.7 Diarrhea, unspecified; Z79.899 Other long term (current) drug therapy; Z60.2 Problems related to living alone; E11.9 Type 2 diabetes mellitus without complications
CPT/HCPCS: 36415; 80053; 96360; 96361; 99284; 82330; 83735; 85025

== ENCOUNTER 2020-02-14 14:46 | Inpatient (IN) | payer MEDICARE, OTHER, SELFPAY ==
--- NOTE | 2020-02-14 16:45 | HPE_ITS ---
Date of service: 02/14/20 Time of Service: 16:46 Assessment and Plan Assessment and plan (1) SIRS (systemic inflammatory response syndrome): Status: Acute Assessment and plan: Unfortunately, labs and CXR have not yet been done. Ddx: infectious source of diarrhea, tumor fever, UTI, much less likely PNA, tumor lysis, possible viral infection (such as the flu), possible infected infusaport. Obtain blood cultures, change arango and collect sample. Check stool studies including C.Diff. Start gentle IVF and empiric abx (vancomycin, cefepime). (2) Diarrhea: Status: Acute Assessment and plan: Await BMP/magnesium. Check Cdiff/stool cultures. Per patient's hem/onc note, about 40% of people on his chemotherapy develop diarrhea. Start gentle IV hydration. (3) Urinary retention: Status: Chronic Assessment and plan: Change arango catheter, then check UA/C&S. 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 Consider palliative care consult. (5) Ambulatory dysfunction: Status: Acute Assessment and plan: PT/OT evals. (6) Discharge planning issues: Status: Acute Assessment and plan: Full code Consider palliative care consult (7) DVT prophylaxis: Status: Acute Assessment and plan: Heparin SC. History of Present Illness History of Present Illness Chief Complaint: Weakness, continuous watery diarrhea Narrative: Mr Gonzales is an 84 year old male with PMHx of diffuse large B cell lypmhoma, on polutuzumab, as well as NIDDM2, CKD, chronic urinary retention s/p arango catheter, whom I was asked to admit directly by his PCP for weakness and two falls this morning in setting of diarrhea, presumably due to polutuzumab. He was seen in [facility] ED on 02/08/2020, 02/11/2020, and 02/12/2020 for diarrhea, nausea, weakness, and was sent home. This morning, EMS was called when he couldn't get up after a fall. He then fell again. The patient does not feel like he can take care of himself at home at this time due to his weakness and continuous watery diarrhea. He is supposed to walk with a walker, but hasn't been. He denies dizziness, fevers, cough, shortness of breath, chest pain, palpitations, abdominal pain, nausea, blood in stool. The only medication the patient states he is taking is magnesium. Upon arrival to the floor, the patient's temperature is 38.3. Review of Systems Narrative: 12 systems reviewed. Pertinent positives and negatives are as per [facility] Social History Smoking/Tobacco Use Status: Never Alcohol Intake: never Drug use: Never Substance use type: does not use Do you feel safe at home: No Do you feel safe in your relationship?: Yes Additional Social history: three years ago. Believes at current time he is in no position to be at home with his weakness and loss of appetite Meds Home Medications and Allergies Home Medications Medication Instructions Recorded Confirmed Type magnesium oxide 400 mg PO DAILY #30 tab 04/23/18 02/12/20 Rx Allergies Allergy/AdvReac Type Severity Reaction Status Date / Time No Known Allergies Allergy Unverified 02/12/20 10:31 Exam Narrative Exam Narrative: General: Elderly male, laying comfortably in bed without evidence of tachypnea/dyspnea/distress/cough, looks visibly dehydrated, A&Ox3, [place] Neurological: A&Ox3, no focal deficits Psychiatric: Appropriate speech pattern/content Skin: Multiple ecchymoses/abrasions BUE/BLEs HEENT: Atraumatic, normocephalic, EOMI, dry MM, clear oropharynx, no goiter or JVD Cardiovascular: Seeimly irregular rhythm, mildly tachycardic, no m/r/g Lungs: crackles at L base Gastrointestinal: soft, nontender, nondistended Genitourinary: has a arango catheter - bag with dark cloudy urine; bag covered in feces Extremities: trace edema BLE's, no c/c, +1 B pedal pulses Results Imaging Additional studies: CXR ordered, pending EKG: NSR with frequent PACS, HR 109, nonspecific ST-T changes, no acute ischemia Labs Result diagrams: 02/14/20 14:46 02/14/20 14:45 COVID-19 Screening Traveled to [place] from one of the affected countries or regions?: No Recent travel in the [place] within the last 8 weeks?: No Recent out of the country travel within the last 8 weeks?: No Exposure or possible exposure to illness during travel?: No Had IN PERSON contact w/suspected or confirmed C-19 person: No Have you had the following symptoms in the past few days?: No Symptoms noted since travel?: No Symptoms
[2020-02-14 17:15] VITALS: BP 100/52; PULSE 96; RESP 28; TEMP 38.3; O2SAT 94
[2020-02-14 17:20] VITALS: BP 100/52; PULSE 96; RESP 28; TEMP 38.3; O2SAT 94
[2020-02-14 17:56] LABS: HCT 32.2 % (40.0-50.0); HGB 11.2 g/dL (13.5-17.5); Mean Corp. HGB Concentration 34.8 g/dL (32.0-36.0); Mean Corpuscular Hemoglobin 32.7 pg (27.0-33.0); Mean Corpuscular Volume 94.2 fL (80-95); Mean Platelet Volume 10.1 fL (8.0-11.0); Platelet Count 318 x1000/uL (130-400); RBC 3.42 m/cumm (4.50-6.00); RBC Distribution Width 14.9 % (11.8-14.1)
[2020-02-14 17:58] LABS: Lactate 2.9 mmol/L (0.6-1.4)
[2020-02-14] MEDS: Lidocaine 2% Jelly 11 ML SYR UR (18:00)
[2020-02-14 18:03] LABS: Bilirubin Small (Negative); Blood Large (Negative); Clarity Cloudy (Clear); Glucose Negative (Negative); Ketones Negative (Negative); Leukocyte Esterase Small (Negative); Nitrite Negative (Negative); Specific Gravity >= 1.030 (1.005-1.025); Urobilinogen 0.2 EU/dL (Up TO 0.2)
--- NOTE | 2020-02-14 18:07 | DI.RAD_ITS ---
EXAM: XR PORTABLE CHEST AP CLINICAL HISTORY: fever TECHNIQUE: 2D digital imaging was performed. COMPARISON: CHEST 2 VIEWS PA,LAT from 04/21/2018 XR CHEST 2V PA LATERAL from 12/11/2018 XR ABD FLAT UPRIGHT PA CHEST from 06/02/2019 CT CHEST/ABD/PEL WO from 02/08/2020 FINDINGS: The lungs are expiratory. The heart size is normal. A port is again noted. Streaky densities are again seen in the left lower lobe which a which may be chronic. Bowel loops are again noted beneath the diaphragms bilaterally. No new abnormalities are seen. IMPRESSION: Limited exam due to poor pulmonary inflation. Stable medial left lower lobe opacities.
[2020-02-14 18:12] LABS: Bacteria Packed HPF (Negative); C & S Indicated? C&S Done As Ordered; Crystals Negative HPF (Negative); Epithelial Cells Negative HPF (Negative); Mucus Negative (Negative); Other Cells Moderate Renal (Negative); RBC >50 HPF (0-2); WBC >50 HPF (0-5)
[2020-02-14 18:12] LABS: ALT 83 U/L (16-63); AST 49 U/L (15-37); Albumin 2.3 g/dL (3.4-5.0); Alkaline Phosphatase 214 U/L (46-116); Anion Gap 20.8 mmol/L (3-11); BUN 64 mg/dL (7-18); Bilirubin, Total 3.6 mg/dL (0.2-1.0); CO2 14.2 mmol/L (21.0-32.0); Calcium 6.5 mg/dL (8.5-10.1); Chloride 100 mmol/L (98-107); Estimated GFR 16.11 (mL/min/1.73m2); Glucose 254 mg/dL (74-106); Magnesium 2.2 mg/dL (1.8-2.4); Sodium 135 mmol/L (136-145); Total Protein 6.4 g/dL (6.4-8.2)
[2020-02-14 18:15] LABS: Uric Acid 10.6 mg/dL (3.5-7.2)
[2020-02-14 18:24] LABS: Absolute Lymphocyte Count 0.24 k/cumm (1.2-3.4)
[2020-02-14 18:25] LABS: Absolute Monocyte Count 1.19 k/cumm (0.11-0.7); Diff Comment Manual Differential
--- NOTE | 2020-02-14 18:25 | DI.VRAD_ITS ---
PROCEDURE INFORMATION: Exam: XR Chest, 1 View Exam date and time: 02/14/2020 6:07 PM Age: 84 years old Clinical indication: Other: Fever TECHNIQUE: Imaging protocol: XR of the chest Views: 1 view. COMPARISON: CR XR ABD FLAT UPRIGHT PA CHEST 02/06/2019 09:54 FINDINGS: Tubes, catheters and devices: Left subclavian catheter in place with the tip in the mid superior vena cava. Lungs: Persistent left lower lobe reticular markings similar to prior study consistent with atelectasis, scar, or infiltrate. Pleural space: Unremarkable. No pleural effusion. No pneumothorax. Heart/Mediastinum: Stable cardiomediastinal silhouette. Diaphragm: Asymmetric elevation right hemidiaphragm in similar to prior study. Bones/joints: Unremarkable for patient's age. Other findings: Air distended bowel evident under the right and left hemidiaphragms. IMPRESSION: 1. Hypoventilation. Stable reticular density left lower lobe consistent with scar, atelectasis, or infiltrate 2. Air distended bowel under the right and left hemidiaphragm. Dictated and Authenticated by: Josephine Jones MD. Ordering:LEON Barron MD
[2020-02-14 18:26] LABS: Burr Cells (echinocyte) 2+; Polychromasia Present
[2020-02-14 18:27] LABS: Absolute Neutrophil Count 22.28 k/cumm (1.2-6.7)
[2020-02-14 18:34] LABS: Troponin I 0.09 ng/Ml (<0.06)
[2020-02-14] MEDS: Lidocaine 1% Multi-Dose 50 ML VIAL (18:35)
[2020-02-14 18:41] LABS: CREATININE 3.64 mg/dL (0.70-1.30)
[2020-02-14 18:56] LABS: Bilirubin, Direct 2.65 mg/dL (0.00-0.20)
[2020-02-14] MEDS: POTASSIUM CHLORIDE 10 MEQ/100 ML BAG 100 MEQ IVPB (19:25)
[2020-02-14] MEDS: POTASSIUM CHLORIDE/0.9% NACL 1,000 ML 125 MEQ IV (19:25)
[2020-02-14] MEDS: Insulin Aspart 300 UNITS/3 ML PEN SC ×2 (19:34→22:18)
[2020-02-14] MEDS: Potassium Chloride 20 MEQ TABCR 40 MEQ PO (19:34)
[2020-02-14] MEDS: Heparin 5,000 UNITS/ML VIAL 5000 UNITS SC (19:36)
[2020-02-14] MEDS: Normal Saline Flush 10 ML SYR IVP (19:36)
[2020-02-14 19:45] VITALS: BP 130/83; PULSE 100; RESP 24; TEMP 38.1; O2SAT 95
[2020-02-14 20:09] VITALS: TEMP 38.1
[2020-02-14] MEDS: Acetaminophen 325 MG TAB PO (20:09)
[2020-02-14] MEDS: VANCOMYCIN 1,000 MG in Normal Saline 250 ML 166.667 MG IVPB (20:31)
[2020-02-14 21:22] LABS: Troponin I 0.11 ng/Ml (<0.06)
[2020-02-14] MEDS: CEFEPIME 2 GM in Normal Saline 100 ML IVPB (23:41)
[2020-02-15] VITALS (8 sets, daily range): BP systolic 122–163; BP diastolic 56–90; PULSE 64–94; RESP 16–18; TEMP 36.5–37.9; O2SAT 78–98
[2020-02-15] MEDS: Heparin 5,000 UNITS/ML VIAL 5000 UNITS SC ×2 (03:04→09:42)
[2020-02-15] MEDS: POTASSIUM CHLORIDE/0.9% NACL 1,000 ML 125 MEQ IV ×2 (06:34→19:06)
[2020-02-15 06:54] LABS: Abs Immature Grans 1.25 k/cumm (0.0-0.09); HCT 30.7 % (40.0-50.0); HGB 10.7 g/dL (13.5-17.5); Mean Corp. HGB Concentration 34.9 g/dL (32.0-36.0); Mean Corpuscular Hemoglobin 32.7 pg (27.0-33.0); Mean Corpuscular Volume 93.9 fL (80-95); Mean Platelet Volume 9.9 fL (8.0-11.0); Platelet Count 267 x1000/uL (130-400); RBC 3.27 m/cumm (4.50-6.00); RBC Distribution Width 15.1 % (11.8-14.1); White Blood Cell Count 19.81 k/cumm (4.4-10.8)
[2020-02-15 07:24] LABS: Absolute Monocyte Count 0.99 k/cumm (0.11-0.7); Absolute Neutrophil Count 18.62 k/cumm (1.2-6.7)
[2020-02-15 07:25] LABS: Diff Comment Manual Differential
[2020-02-15 07:27] LABS: Anion Gap 17.9 mmol/L (3-11); BUN 68 mg/dL (7-18); CO2 13.1 mmol/L (21.0-32.0); Chloride 106 mmol/L (98-107); Estimated GFR 15.14 (mL/min/1.73m2); Glucose 114 mg/dL (74-106); Magnesium 2.3 mg/dL (1.8-2.4); Sodium 137 mmol/L (136-145)
[2020-02-15 07:34] LABS: Calcium 6.2 mg/dL (8.5-10.1)
[2020-02-15 07:35] LABS: CREATININE 3.84 mg/dL (0.70-1.30); Potassium 2.5 mmol/L (3.5-5.1)
[2020-02-15 07:36] LABS: Troponin I 0.09 ng/Ml (<0.06)
--- NOTE | 2020-02-15 08:05 | PT.INIE ---
Date of service: 02/15/20 Time of Service: 08:45 PT Notes Visit Reasons: DEHYDRATION, CHEMOTHERAPY INDUCED DIARRHEA; SUSPEC Inpatient Physical Therapy Evaluation Date: 02/15/2020 Referring Doctor: Beatrice Shipley MD PT Orders: PT CONSULT: Limited mobility Precautions:Fall risk Patient Profile/Admitting Diagnosis: Chief Complaint: Weakness, continuous watery diarrhea Narrative: Mr Gonzales is an 84 year old male with PMHx of diffuse large B cell lypmhoma, on polutuzumab, as well as NIDDM2, CKD, chronic urinary retention s/p arango catheter. He came to the ER and was admitted 02/14/2020 for weakness and two falls that morning in setting of diarrhea, presumably due to polutuzumab. He was seen in [facility] ED on 02/08/2020, 02/11/2020, and 02/12/2020 for diarrhea, nausea, weakness, and was sent home. Yesterday morning, EMS was called when he couldn't get up after a fall. He then fell again. The patient does not feel like he can take care of himself at home at this time due to his weakness and continuous watery diarrhea. He is supposed to walk with a walker, but hasn't been. He has had cancer for 7 years and has undergone several courses of chemotherapy, the most recent of which was on 02/02/20. PMHX: Medical History Allergic rhinitis (Chronic) Benign prostatic hypertrophy without urinary obstruction (Chronic) Chronic renal impairment (Chronic) Diabetes type 2, controlled (Chronic) Diffuse large B cell lymphoma (Chronic) Gout (Chronic) Hypercholesterolemia (Chronic) Hypertension (Chronic) Peripheral venous insufficiency (Chronic) Polyp of colon (Inactive) Urinary retention (Acute) Surgical History Colonoscopy - MAC (Inactive 07/08/16) Mediport placement (Chronic) Social History/Home Situation: Patient does live alone in [place] with 3 steps entering the dwelling and railing. Multilevel home but essentially lives on single level for bathroom kitchen living room and bedroom. States that he does have a daughter living locally who is considering moving him to help with his condition. Equipment Owned/DME: Patient indicates that he did have a front wheel walker at one time but after his passed 3 years ago her daughter cleaned the house outs and he cannot find it. States he does not have any assistive device currently. Subjective: No pain. States that he has been resting comfortably and is agreeable to PT consult. Objective: General Observation: IV port sub-clavicle left anterior chest, catheter, telemetry Mental Status: Alert and oriented x3 Pain: 0/10 ROM: Right Upper Extremity: Within functional limits Left Upper Extremity: Within functional limits Right Lower Extremity: Within functional limits Left Lower Extremity: Within functional limits Strength: Right Upper Extremity: 4/5 glenohumeral joint flexion and abduction, elbow flexion and extension. Good structural engineering technician Left Upper Extremity: 4/5 glenohumeral joint flexion and abduction, elbow flexion and extension. Good structural engineering technician Right Lower Extremity: Patient perform straight leg raise with 0 degree lag. 4/5 hip flexor and hamstring. 4+/5 quad. 4/5 dorsiflexion and plantarflexion ankle. Left Lower Extremity: Straight leg raise of 0 degree lag. 4/5 hip flexor and hamstring. 4+/5 quadricep. 4/5 dorsiflexion and plantarflexion. Sensation: Intact sensation light touch bilateral lower extremities Bed Mobility/Transfers: Bed mobility: Independent Supine?sit: Head of bed 40 degrees min assist x1 Sit?stand: Contact-guard X1 to front wheeled walker Stand?sit: Contact-guard X1 from front wheeled walker Gait: 15 feet x 2 with contact-guard x1 with front wheeled walker Balance: Static Sitting: Good Dynamic Sitting: Good Static Standing: Good Dynamic Standing: Fair Special Tests: Mobility Limitations Standardized Measure [facility]-PAC 6 clicks Basic Mobility Inpatient Short Form: Raw Score:19 Standardized Score: 45.44 CMS Score:41.77 [facility] Modifier: [] Informed Consent/Education: Patient instructed in purpose of PT consult and plan of care. Assessment: Patient is a 84 year old male referred to physical therapy services with the diagnosis of dehydration, chemotherapy induced diarrhea . Patient presents with clinical signs and symptoms consistent with the above diagnosis. He demonstrates mobility deficits, and requires PT intervention allow for safe transition to a longterm facility. Patient does require front wheel walker for ambulation. He is a fall risk as he had 2 prior falls prior to admission to [facility]. Front wheel walker is necessary to maintain him improved function mobility and independence for ADLs. He currently demonstrates the following impairment level findings: 1. Decreased strength to bilateral hip and knee major muscle groups 2. Impaired standing balance 3. Impaired activity tolerance Impairments are contributing to the following functional limitations: 1. Increased dependence with transfers 2. Inability to safely ambulate without assistive device and physical assistance 3. Increase completion time for mobility ADL performance 4. Increased fall risk 5. Inability to negotiate steps alone safely Patient is assessed as a [] Low 68658 X Moderate 07747 [] High 19883 complexity based on the following: History: as above Examination: as above Presentation: evolving Decision Making: Moderate 40507 Goals: Goals X1 week 1. Supine-Sit: Independent 2. Sit-Supine: Independent 3. Sit-Stand: To a FWW with supervision 4. Stand-Sit: From a FWW with supervision 5. Bed-Chair: With FWW with supervision 6. Chair-Bed: With FWW with supervision 7. Gait: 150' with SBA with FWW Plan of Care/Treatment Plan: 1-2x/day, 7 days/week x 1 week. Plan of care has been reviewed with the CLIENT SERVICE COORDINATOR providing the service under Physical Therapy direction. Initiate Physical Therapy intervention for strengthening, bed mobility, transfers, gait, stairs, balance training, use of assistive device. DISCHARGE RECOMMENDATIONS: Recommend transition to SNF once medically cleared and discharged from [facility] versus home with daughter. Patient will need front wheeled walker prior to discharge from [facility]. TREATMENT CODE/TIME: CRISTOFER 21952, 8:45-9:05
[2020-02-15] MEDS: CEFEPIME 2 GM in Normal Saline 100 ML IVPB (09:00)
[2020-02-15 09:36] LABS: Lactate 1.5 mmol/L (0.6-1.4)
[2020-02-15] MEDS: Potassium Chloride 20 MEQ TABCR 40 MEQ PO ×2 (09:42→13:18)
[2020-02-15] MEDS: POTASSIUM CHLORIDE 20 MEQ/100 ML BAG 50 MEQ IVPB ×2 (09:55→12:09)
--- NOTE | 2020-02-15 11:58 | PHA.ADMREV ---
Pharmacy Clinical Review - Admission Clinical Review (Last Reviewed 02/11/20 @ 10:01 by Shawna Holloway) Discharge planning issues (Acute) Ambulatory dysfunction (Acute) SIRS (systemic inflammatory response syndrome) (Acute) Diarrhea (Acute) DVT prophylaxis (Acute) No Known Allergies Allergy (Unverified 02/12/20 10:31) Height 5 ft 10 in Weight 64.7 kg - Renal Dosing Renal Dosing: BUN 68 mg/dL (7-18) H 02/15/20 06:25 Creatinine 3.84 mg/dL (0.70-1.30) H* 02/15/20 06:25 Medications needing adjustments: Intervened (CRCL 13ML/MIN cefepime dose adjusted with MD huynh,) - Anticoagulation Anticoagulation: Hgb 10.7 g/dL (13.5-17.5) L 02/15/20 06:25 Hct 30.7 % (40.0-50.0) L 02/15/20 06:25 Plt Count 267 x1000/uL (130-400) 02/15/20 06:25 Creatinine 3.84 mg/dL (0.70-1.30) H* 02/15/20 06:25 DVT Prohphylaxis: Reviewed Medications: Heparin Therapeutic Anticoagulation: N/A - Opiate Usage Evaluate Pain Scale/Pains Meds: Reviewed Scheduled Bowel Reg ordered if on Opiates?: No (prn) - Relevant Labs Sodium 137 mmol/L (136-145) 02/15/20 06:25 Potassium 2.5 mmol/L (3.5-5.1) L* 02/15/20 06:25 Chloride 106 mmol/L (98-107) 02/15/20 06:25 Magnesium 2.3 mg/dL (1.8-2.4) 02/15/20 06:25 Electrolytes, C-Reactive P, ESR: Reviewed (KCL PO and IV boluses ordered) - Antimicrobial Stewardship Antibiotic appropriateness: Reviewed Surgical Abx d/c within 24 hr: No Culture review/Resistance: Reviewed (gram neg magan in UC, BC pending) - DM Control DM Control: Glucose 114 mg/dL (74-106) H D 02/15/20 06:25 Finger Stick Blood Glucose 115 Finger Stick Blood Glucose 129 Finger Stick Blood Glucose 129 Insulin Dosing: N/A - Heart Failure/DE Heart Failure/DE: Troponin I 0.09 ng/Ml (<0.06) H* 02/15/20 06:25 EF%, ERNA's, B-Blockers, Diuretics: N/A - BP Control BP Control: Blood Pressure 156/90 Blood Pressure 138/56 Blood Pressure 122/78 If elevated: N/A - QTc Review If Elevated: Reviewed (514 meds ok) - IV to PO Switch IV Medications: Reviewed (IV antibiotice and IVF) - Home Meds Home Med List reviewed: Reviewed (only magox listed and not ordered inpt) - Current meds Current Medication Order Review: Reviewed
--- NOTE | 2020-02-15 12:35 | NS.NUTBLAN_ITS ---
Date of service: 02/15/20 Time of Service: 12:35 Nutritional Consult ASSESSMENT: Thank you for nutrition consult for Luis for diabetes management. Luis is an 84 year old male admitted with ambulatory dysfunction, diarrhea, decreased appetite, pyelonephritis, s/p chemotheraphy. P MH: lymphome, NIDDM. Meds include insulin. Following Diabetic Diet with poor intake (<25%). Has lost 33 lbs in last 4 months. Estimated Needs: 4050-4449 kcal, 64-78 g protein, 2200 ml fluid. Meeting <25% of nutrient needs for weight stability. Presents with severe malnutrition with history of poor po intake and significant weight loss in last 90 days. Met with Luis today and he reports poor appetite but is willing to try glucerna shakes BID to increase intake. Labs indicates adequately controlled DM at this time. In view of full code, will monitor closely and provide warranted recommendations to optimize nutritional parameters. NUTRITIONAL DIAGNOSIS: Severe Malnutrition due to inadequate intake and significant weight loss INTERVENTION: Diabetic Diet Glucerna shake BID MONITORING AND EVALUATION: weight, po intake, labs Time Spent in Nutritional Counseling and Treatment: 10 min spent face to face
--- NOTE | 2020-02-15 13:53 | CHAPLAIN ---
Luis was in bed when I visited. He waved me off when I introduced myself and explained my role. He was pleasant, but not interested in further conversation.
--- NOTE | 2020-02-15 14:18 | PDOC.CMIN ---
- If Service Date Differs Date of service: 02/15/20 Time of Service: 14:18 Care Management Initial Assess REASON FOR HOSPITALIZATION:: Dehydration, chemotherapy induced diarrhea, and suspected UTI. PAST MEDICAL HISTORY/PAST SURGICAL HISTORY:: Medical/Surgical History: SIRS (systemic inflammatory response syndrome), diarrhea, leukocytosis, fatigue, decreased appetite, generalized weakness, status post chemotherapy, urinary retention, CKD (chronic kidney disease), DVT prophylaxis, pneumonia, febrile neutropenia, diabetes type 2 - controlled, hypertension, and diffuse large B cell lymphoma. PREVIOUS FUNCTIONAL STATUS/SOCIAL/FAMILY SUPPORTS:: Luis lives alone in his own home in [facility]. He is and has two adult children: one daughter who resides in [place], [place] and a son who lives on [facility] in [place]. 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 Approximately 7 years ago, he was diagnosed with diffuse large B cell lymphoma and he reports being in and out of remission since. CURRENT FUNCTIONAL STATUS:: Luis is lying in bed when CM comes to meet with him. He is pleasant and easily engages in conversation. He expresses a desire to live out the remainder of his days in his home despite feeling weak and shares his hope his daughter will move in with him in the near future. CM will continue to follow. ADVANCE DIRECTIVES:: On file at [facility]; Cecelia Gonzales is healthcare agent. Has patient been provided with information about the portal?: Yes Did the patient sign up for the portal?: Yes (Already enrolled) CODE STATUS:: Full Code INSURANCE COVERAGE / FINANCIAL ISSUES:: Medicare and [employer]. CURRENT HOME/COMMUNITY SERVICES/EQUIPMENT:: Luis denies having any in-home services. He reports he had a FWW at one time but does not know what happened to it. He denies owning any other medical equipment. Luis was [place] [facility] [place] these services have now ended. PRIMARY CARE PHYSICIAN:: Leo Vargas MD ([facility]) POTENTIAL DISCHARGE NEEDS:: Follow-up appointment with PCP and potential long-term care placement, if Luis is willing to consider placement as an option. PATIENT/FAMILY EDUCATION NEEDS:: Discharge instructions, limitations, follow-up plan of care, including Ask Me Three and self-management. ANTICIPATED BARRIERS TO DISCHARGE:: None. TRANSPORTATION:: Via private vehicle with a friend vs ambulance. PLAN:: Plan remains to be determined depending on Luis's progress.
--- NOTE | 2020-02-15 15:19 | PGE_ITS ---
Date of Service Date of service: 02/15/20 Time of Service: 15:19 Assessment and Plan Assessment and plan (1) End of life care: Start date: 02/15/20 Start time: 15:24 Status: Acute Assessment and plan: After conversation with oncologist Dr. Singh, palliative consult placed. He is failing outpatient chemo and the treatment is too strong and not working. She has asked us to have the conversation with him regarding hospice. Spoke with patient regarding conversation with Dr. Singh, he understands, he is agreeable. He understands that the cancer treatments are no longer working and understands being made hospice. He is agreeable, only asking we speak to his daughter Cecelia which I have done. Cecelia agrees with this decision as his health has been worse over the last 10 days from chemo. She only asks he been in a facility close to her (she lives in [place]) and that she be allowed to see him, I explained being on comfort measures she will be allowed to see him at our facility. At this time I will make him modified POLYSOMNOGRAPHIC TECH until palliative evaluates him, no fingersticks, no am labs, I will keep anbx on at this time. 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 see above. modified POLYSOMNOGRAPHIC TECH Subjective Subjective Patient reports: other Interval history since last seen: Patient labs not improving this am, called [facility] and spoke with oncologist Dr. Singh, after reviewing labs and patient status, she agrees that the next step is hospice. She stated chemo was failing and making his symptoms worse, the treatment is too strong, more than his body can handle and would like hospice involved. Palliative order placed. Spoke with patient he is agreeable to hospice, he understands that his treatment is not working and this is the next step. At this time we will make him modified POLYSOMNOGRAPHIC TECH until he speaks with Palliative. Continue antbx, stop fingersticks and lab draws. Exam Narrative Exam Narrative: General: Elderly male, laying comfortably in bed without evidence of tachypnea/dyspnea/distress/cough, looks visibly dehydrated, A&Ox3, [place] Neurological: A&Ox3, no focal deficits Psychiatric: Appropriate speech pattern/content Skin: Multiple ecchymoses/abrasions BUE/BLEs HEENT: Atraumatic, normocephalic, EOMI, dry MM, clear oropharynx, no goiter or JVD Cardiovascular: Seeimly irregular rhythm, mildly tachycardic, no m/r/g Lungs: crackles at L base Gastrointestinal: soft, nontender, nondistended Genitourinary: has a arango catheter - bag with dark cloudy urine; bag covered in feces Extremities: trace edema BLE's, no c/c, +1 B pedal pulses Objective Objective Clinical Data: Abnormal lab results 02/14/20 02/14/20 02/14/20 Range/Units 17:24 17:38 17:38 WBC (4.4-10.8) k/cumm RBC (4.50-6.00) m/cumm Hgb (13.5-17.5) g/dL Hct (40.0-50.0) % RDW (11.8-14.1) % Absolute Neutrophils (1.2-6.7) k/cumm Absolute Lymphocytes (1.2-3.4) k/cumm Absolute Monocytes (0.11-0.7) k/cumm Sodium 135 L (136-145) mmol/L Potassium 2.0 L* D (3.5-5.1) mmol/L Carbon Dioxide 14.2 L (21.0-32.0) mmol/L Anion Gap 20.8 H (3-11) mmol/L BUN 64 H D (7-18) mg/dL Creatinine 3.64 H* D (0.70-1.30) mg/dL Glucose 254 H (74-106) mg/dL Lactate 2.9 H* (0.6-1.4) mmol/L Uric Acid (3.5-7.2) mg/dL Calcium 6.5 L (8.5-10.1) mg/dL Total Bilirubin 3.6 H (0.2-1.0) mg/dL Conjugated Bilirubin 2.65 H (0.00-0.20) mg/dL AST 49 H (15-37) U/L ALT 83 H (16-63) U/L Alkaline Phosphatase 214 H (46-116) U/L Troponin I (<0.06) ng/Ml Albumin 2.3 L (3.4-5.0) g/dL Ur Specific [place] >= 1.030 H (1.005-1.025) Urine Protein >=300 H (Negative) mg/dL Urine Blood Large H (Negative) Urine Bilirubin Small H (Negative) Ur Leukocyte Esterase Small H (Negative) Urine RBC >50 H (0-2) HPF Urine WBC >50 H (0-5) HPF 02/14/20 02/14/20 02/14/20 Range/Units 17:38 17:38 20:40 WBC 23.70 H (4.4-10.8) k/cumm RBC 3.42 L (4.50-6.00) m/cumm Hgb 11.2 L (13.5-17.5) g/dL Hct 32.2 L (40.0-50.0) % RDW 14.9 H (11.8-14.1) % Absolute Neutrophils 22.28 H (1.2-6.7) k/cumm Absolute Lymphocytes 0.24 L (1.2-3.4) k/cumm Absolute Monocytes 1.19 H (0.11-0.7) k/cumm Sodium (136-145) mmol/L Potassium (3.5-5.1) mmol/L Carbon Dioxide (21.0-32.0) mmol/L Anion Gap (3-11) mmol/L BUN (7-18) mg/dL Creatinine (0.70-1.30) mg/dL Glucose (74-106) mg/dL Lactate (0.6-1.4) mmol/L Uric Acid 10.6 H (3.5-7.2) mg/dL Calcium (8.5-10.1) mg/dL Total Bilirubin (0.2-1.0) mg/dL Conjugated Bilirubin (0.00-0.20) mg/dL AST (15-37) U/L ALT (16-63) U/L Alkaline Phosphatase (46-116) U/L Troponin I 0.09 H* 0.11 H* (<0.06) ng/Ml Albumin (3.4-5.0) g/dL Ur Specific [place] (1.005-1.025) Urine Protein (Negative) mg/dL Urine Blood (Negative) Urine Bilirubin (Negative) Ur Leukocyte Esterase (Negative) Urine RBC (0-2) HPF Urine WBC (0-5) HPF 02/15/20 02/15/20 02/15/20 Range/Units 06:25 06:25 09:30 WBC 19.81 H (4.4-10.8) k/cumm RBC 3.27 L (4.50-6.00) m/cumm Hgb 10.7 L (13.5-17.5) g/dL Hct 30.7 L (40.0-50.0) % RDW 15.1 H (11.8-14.1) % Absolute Neutrophils 18.62 H (1.2-6.7) k/cumm Absolute Lymphocytes 0.20 L (1.2-3.4) k/cumm Absolute Monocytes 0.99 H (0.11-0.7) k/cumm Sodium (136-145) mmol/L Potassium 2.5 L* (3.5-5.1) mmol/L Carbon Dioxide 13.1 L (21.0-32.0) mmol/L Anion Gap 17.9 H (3-11) mmol/L BUN 68 H (7-18) mg/dL Creatinine 3.84 H* (0.70-1.30) mg/dL Glucose 114 H D (74-106) mg/dL Lactate 1.5 H (0.6-1.4) mmol/L Uric Acid (3.5-7.2) mg/dL Calcium 6.2 L* (8.5-10.1) mg/dL Total Bilirubin (0.2-1.0) mg/dL Conjugated Bilirubin (0.00-0.20) mg/dL AST (15-37) U/L ALT (16-63) U/L Alkaline Phosphatase (46-116) U/L Troponin I 0.09 H* (<0.06) ng/Ml Albumin (3.4-5.0) g/dL Ur Specific [place] (1.005-1.025) Urine Protein (Negative) mg/dL Urine Blood (Negative) Urine Bilirubin (Negative) Ur Leukocyte Esterase (Negative) Urine RBC (0-2) HPF Urine WBC (0-5) HPF Vital Signs Temperature 37.5 C 02/15/20 11:48 Temperature Source Temporal Artery Scan 02/15/20 11:48 Pulse 86 03/31/20 11:48 Pulse Rhythm Regular 02/15/20 10:44 Respiratory Rate 18 02/15/20 11:48 Respiratory Effort 02/15/20 10:44 Respiratory Depth Normal 02/15/20 10:44 Respiratory Pattern Normal 02/15/20 10:44 Blood Pressure 163/64 H 02/15/20 11:48 Pulse Oximetry 97 02/15/20 11:48 Oxygen Delivery Method Room Air 02/15/20 11:48 Oxygen Flow Rate 0 02/15/20 11:48 Pain Level 0 02/15/20 11:48 Comment 02/15/20 07:13 Intake & Output 02/14/20 02/15/20 02/15/20 23:59 11:59 23:59 Intake Total 1883.333 / 1883.333 666.667 / 666.667 0 / 666.667 Output Total 150 / 150 125 / 425 300 / 425 Balance 1733.333 / 1733.333 541.667 / 241.667 -300 / 241.667 Weight 64.7 kg Intake: IV 883.333 / 883.333 666.667 / 666.667 Oral 1000 / 1000 0 / 0 Output: Urine 150 / 150 125 / 425 300 / 425 Other: Urine Color Yellow Dark Crista Dark Crista Urine Appearance Cloudy Clear Clear Sediment Urine Odor Strong Strong Comment in urine bag from home. pt unsure of last time emptying bag. Stool Size Copious Moderate Stool Characteristics Liquid Liquid Brown Voiding Methods Indwelling Catheter Laboratory Results WBC 19.81 k/cumm (4.4-10.8) H 02/15/20 06:25 RBC 3.27 m/cumm (4.50-6.00) L 02/15/20 06:25 Hgb 10.7 g/dL (13.5-17.5) L 02/15/20 06:25 Hct 30.7 % (40.0-50.0) L 02/15/20 06:25 MCV 93.9 fL (80-95) 02/15/20 06:25 MCH 32.7 pg (27.0-33.0) 02/15/20 06:25 MCHC 34.9 g/dL (32.0-36.0) 02/15/20 06:25 RDW 15.1 % (11.8-14.1) H 02/15/20 06:25 Plt Count 267 x1000/uL (130-400) 02/15/20 06:25 MPV 9.9 fL (8.0-11.0) 02/15/20 06:25 Immature Gran % 0.0 % 02/15/20 06:25 Neutrophils % 92.0 02/15/20 06:25 Band Neutrophils % 2.0 % 02/15/20 06:25 Lymphocytes % 1.0 02/15/20 06:25 Monocytes % 5.0 02/15/20 06:25 Eosinophils % 0.0 02/15/20 06:25 Basophils % 0.0 02/15/20 06:25 Absolute Neutrophils 18.62 k/cumm (1.2-6.7) H 02/15/20 06:25 Absolute Lymphocytes 0.20 k/cumm (1.2-3.4) L 02/15/20 06:25 Absolute Monocytes 0.99 k/cumm (0.11-0.7) H 02/15/20 06:25 Absolute Eosinophils 0.00 k/cumm (0.0-0.7) 02/15/20 06:25 Absolute Basophils 0.00 k/cumm (0.0-0.2) 02/15/20 06:25 Differential Comment Manual differential 02/15/20 06:25 RBC Morphology See below 02/14/20 17:38 Polychromasia Present 02/14/20 17:38 Neil Cells 2+ 02/14/20 17:38 Sodium 137 mmol/L (136-145) 02/15/20 06:25 Potassium 2.5 mmol/L (3.5-5.1) L* 02/15/20 06:25 Chloride 106 mmol/L (98-107) 02/15/20 06:25 Carbon Dioxide 13.1 mmol/L (21.0-32.0) L 02/15/20 06:25 Anion Gap 17.9 mmol/L (3-11) H 02/15/20 06:25 BUN 68 mg/dL (7-18) H 02/15/20 06:25 Creatinine 3.84 mg/dL (0.70-1.30) H* 02/15/20 06:25 Estimated GFR/1.73 m2 15.14 (mL/min/1.73m2) 02/15/20 06:25 Glucose 114 mg/dL (74-106) H D 02/15/20 06:25 Lactate 1.5 mmol/L (0.6-1.4) H 02/15/20 09:30 Uric Acid 10.6 mg/dL (3.5-7.2) H 02/14/20 17:38 Calcium 6.2 mg/dL (8.5-10.1) L* 02/15/20 06:25 Magnesium 2.3 mg/dL (1.8-2.4) 02/15/20 06:25 Total Bilirubin 3.6 mg/dL (0.2-1.0) H 02/14/20 17:38 Conjugated Bilirubin 2.65 mg/dL (0.00-0.20) H 02/14/20 17:38 AST 49 U/L (15-37) H 02/14/20 17:38 ALT 83 U/L (16-63) H 02/14/20 17:38 Alkaline Phosphatase 214 U/L (46-116) H 02/14/20 17:38 Lactate Dehydrogenase Cancelled 02/15/20 09:02 LD Total Cancelled 02/15/20 09:02 LD Isoenzymes Cancelled 02/15/20 09:02 LD 1 Cancelled 02/15/20 09:02 LD 2 Cancelled 02/15/20 09:02 LD 3 Cancelled 02/15/20 09:02 LD 4 Cancelled 02/15/20 09:02 LD 5 Cancelled 02/15/20 09:02 Troponin I 0.09 ng/Ml (<0.06) H* 02/15/20 06:25 Total Protein 6.4 g/dL (6.4-8.2) 02/14/20 17:38 Albumin 2.3 g/dL (3.4-5.0) L 02/14/20 17:38 Urine Color Crista (Yellow) 02/14/20 17:24 Urine Clarity Cloudy (Clear) 02/14/20 17:24 Urine pH 6.0 (5-8) 02/14/20 17:24 Ur Specific [place] >= 1.030 (1.005-1.025) H 02/14/20 17:24 Urine Protein >=300 mg/dL (Negative) H 02/14/20 17:24 Urine Ketones Negative mg/dL (Negative) 02/14/20 17:24 Urine Blood Large (Negative) H 02/14/20 17:24 Urine Nitrite Negative (Negative) 02/14/20 17:24 Urine Bilirubin Small (Negative) H 02/14/20 17:24 Urine Urobilinogen 0.2 EU/dL (Up TO 0.2) 02/14/20 17:24 Ur Leukocyte Esterase Small (Negative) H 02/14/20 17:24 Urine RBC >50 HPF (0-2) H 02/14/20 17:24 Urine WBC >50 HPF (0-5) H 02/14/20 17:24 Ur Epithelial Cells Negative HPF (Negative) 02/14/20 17:24 Urine Crystals Negative HPF (Negative) 02/14/20 17:24 Urine Bacteria Packed HPF (Negative) 02/14/20 17:24 Urine Mucus Negative (Negative) 02/14/20 17:24 Urine Other Moderate renal (Negative) 02/14/20 17:24 Ur Culture Indicated? C&s done as ordered 02/14/20 17:24 Urine Glucose Negative mg/dL (Negative) 02/14/20 17:24
[2020-02-15] MEDS: CEFEPIME 1 GM in Normal Saline 50 ML IVPB (19:36)
[2020-02-16 01:33] VITALS: BP 129/62; PULSE 107; RESP 19; TEMP 36.8; O2SAT 96
[2020-02-16] MEDS: POTASSIUM CHLORIDE/0.9% NACL 1,000 ML 125 MEQ IV ×2 (04:23→13:12)
[2020-02-16 04:26] VITALS: BP 152/57; PULSE 83; O2SAT 97
[2020-02-16] MEDS: Metoprolol 25 MG TAB PO ×3 (04:26→20:34)
[2020-02-16 07:15] VITALS: BP 141/54; PULSE 72; RESP 21; TEMP 37.1; O2SAT 94
[2020-02-16] MEDS: CEFEPIME 1 GM in Normal Saline 50 ML IVPB ×2 (08:31→20:34)
--- NOTE | 2020-02-16 09:08 | CMPROGNOTE_ITS ---
- If Service Date Differs Date of service: 02/16/20 Time of Service: 09:08 Care Management Progress Note S/O: Luis is sitting up in bed when CM comes to meet with him. He reports his daughter is coming to visit him and expresses concerns she won't be allowed into the hospital. CM reassures him arrangements have been made and Ceci will be allowed in. He is aware he is meeting with Dr. Victoria for a palliative care consult this afternoon. CM will continue to follow. A: Luis is a 84 year old male admitted to [facility] on 02/14/2020 for dehydration, chemo induced diarrhea, and suspected UTI. P: Plan remains undetermined at this time. CM will continue to follow.
--- NOTE | 2020-02-16 09:41 | PT.INTREAT ---
Date of service: 02/16/20 Time of Service: 09:15 PT Notes Visit Reasons: DEHYDRATION,CHEMO INDUCED DIARRHEA;SUSPECTED UTI Inpatient Physical Therapy Treatment Note [facility] Date: February 16, 2020 PRECAUTIONS:Fall SUBJECTIVE: Luis reports he is not up to getting out of bed this morning however is agreeable to doing some exercises in bed. He notes that his breakfast was the first meal he has had in a few days. He stated that it felt good to eat something. He notes that the diarrhea continues and this remains frustrating to him. OBJECTIVE: BED MOBILITY/TRANSFERS Supine-sit: CG GAIT: N/T , refused THEREX: Completed open chain UE/LE strength and stabilization per flow sheet. Tolerated all exercises without complaint. STAIRS:N/T ASSESSMENT: Tolerated exercises well without complaints. Will continue with skilled therapy services promoting ROM, strength, functional transfers and mobility within tolerance. PLAN: Continue 1x daily. TREATMENT CODE/TIME: 9:15-9:35 20 minutes, [id number]
--- NOTE | 2020-02-16 10:01 | W.PM.PROGNOT ---
Date of Service Date of service: 02/16/20 Time of Service: 10:01 Assessment and Plan Assessment and plan (1) Diarrhea: Status: Acute Assessment and plan: continues to have diarrhea with skin issues now. will order triple cream, imodium, questran for symptoms, consider rectal catheter (2) End of life care: Status: Acute Assessment and plan: Diffuse large B cell lymphoma, With mets to the bone. has been on modified [employer], palliative care consult pending for today Hospitalist conversation yesterday with oncologist Dr. Singh revealed that he is failing outpatient chemo and the treatment is too strong and not working. continue no fingersticks, no am labs, but was kept on abx on at this time. Subjective Subjective Interval history since last seen: continues to have frequent diarrhea. Exam Const General: cooperative, comfortable, no acute distress and ill appearing chronically Nutritional Appearance: cachectic Orientation: alert, awake and oriented x3 Resp Effort & Inspection: normal respiratory effort Cardio Rate: regular rate GI Inspection: normal to inspection General: other (arango to gravity) Neuro General: patient alert, patient awake and patient oriented x3 Cognition: normal cognition Speech: speech normal Extrem General: normal to inspection, full ROM and no pedal edema Objective Objective Clinical Data: Vital Signs Temperature 37.1 C 02/16/20 07:15 Temperature Source Tympanic 02/16/20 07:15 Pulse 72 02/16/20 07:15 Pulse Rhythm Irregular 02/16/20 01:20 Respiratory Rate 21 02/16/20 07:15 Respiratory Effort 02/16/20 01:20 Respiratory Depth Normal 02/16/20 01:20 Respiratory Pattern Normal 02/16/20 01:20 Blood Pressure 141/54 H 02/16/20 07:15 Pulse Oximetry 94 L 02/16/20 07:15 Oxygen Delivery Method Room Air 02/16/20 07:15 Oxygen Flow Rate 0 02/16/20 07:15 Pain Level 0 02/16/20 07:15 Comment 02/16/20 04:26 Intake & Output 02/15/20 02/15/20 02/16/20 11:59 23:59 11:59 Intake Total 766.667 / 5642.648 7235 / 4392.967 7197 / 1240 Output Total 125 / 425 300 / 425 1100 / 1100 Balance 641.667 / 1391.667 750 / 1391.667 140 / 140 Weight 64.7 kg 68.4 kg Intake: IV 766.667 / 7303.384 8602 / 6050.864 1185 / 1000 Oral 0 / 0 240 / 240 Output: Urine 125 / 425 300 / 425 1100 / 1100 Other: Urine Color Dark Crista Dark Crista Yellow Urine Appearance Clear Clear Clear Sediment Urine Odor Strong Stool Size Moderate Moderate Moderate Stool Characteristics Liquid Liquid Liquid Mucoid Brown Voiding Methods Indwelling Catheter Laboratory Results WBC 19.81 k/cumm (4.4-10.8) H 02/15/20 06:25 RBC 3.27 m/cumm (4.50-6.00) L 02/15/20 06:25 Hgb 10.7 g/dL (13.5-17.5) L 02/15/20 06:25 Hct 30.7 % (40.0-50.0) L 02/15/20 06:25 MCV 93.9 fL (80-95) 02/15/20 06:25 MCH 32.7 pg (27.0-33.0) 02/15/20 06:25 MCHC 34.9 g/dL (32.0-36.0) 02/15/20 06:25 RDW 15.1 % (11.8-14.1) H 02/15/20 06:25 Plt Count 267 x1000/uL (130-400) 02/15/20 06:25 MPV 9.9 fL (8.0-11.0) 02/15/20 06:25 Immature Gran % 0.0 % 02/15/20 06:25 Neutrophils % 92.0 02/15/20 06:25 Band Neutrophils % 2.0 % 02/15/20 06:25 Lymphocytes % 1.0 02/15/20 06:25 Monocytes % 5.0 02/15/20 06:25 Eosinophils % 0.0 02/15/20 06:25 Basophils % 0.0 02/15/20 06:25 Absolute Neutrophils 18.62 k/cumm (1.2-6.7) H 02/15/20 06:25 Absolute Lymphocytes 0.20 k/cumm (1.2-3.4) L 02/15/20 06:25 Absolute Monocytes 0.99 k/cumm (0.11-0.7) H 02/15/20 06:25 Absolute Eosinophils 0.00 k/cumm (0.0-0.7) 02/15/20 06:25 Absolute Basophils 0.00 k/cumm (0.0-0.2) 02/15/20 06:25 Differential Comment Manual differential 02/15/20 06:25 RBC Morphology See below 02/14/20 17:38 Polychromasia Present 02/14/20 17:38 [place] Cells 2+ 02/14/20 17:38 Sodium 137 mmol/L (136-145) 02/15/20 06:25 Potassium 2.5 mmol/L (3.5-5.1) L* 02/15/20 06:25 Chloride 106 mmol/L (98-107) 02/15/20 06:25 Carbon Dioxide 13.1 mmol/L (21.0-32.0) L 02/15/20 06:25 Anion Gap 17.9 mmol/L (3-11) H 02/15/20 06:25 BUN 68 mg/dL (7-18) H 02/15/20 06:25 Creatinine 3.84 mg/dL (0.70-1.30) H* 02/15/20 06:25 Estimated GFR/1.73 m2 15.14 (mL/min/1.73m2) 02/15/20 06:25 Glucose 114 mg/dL (74-106) H D 02/15/20 06:25 Lactate 1.5 mmol/L (0.6-1.4) H 02/15/20 09:30 Uric Acid 10.6 mg/dL (3.5-7.2) H 02/14/20 17:38 Calcium 6.2 mg/dL (8.5-10.1) L* 02/15/20 06:25 Magnesium 2.3 mg/dL (1.8-2.4) 02/15/20 06:25 Total Bilirubin 3.6 mg/dL (0.2-1.0) H 02/14/20 17:38 Conjugated Bilirubin 2.65 mg/dL (0.00-0.20) H 02/14/20 17:38 AST 49 U/L (15-37) H 02/14/20 17:38 ALT 83 U/L (16-63) H 02/14/20 17:38 Alkaline Phosphatase 214 U/L (46-116) H 02/14/20 17:38 Lactate Dehydrogenase Cancelled 02/15/20 09:02 LD Total Cancelled 02/15/20 09:02 LD Isoenzymes Cancelled 02/15/20 09:02 LD 1 Cancelled 02/15/20 09:02 LD 2 Cancelled 02/15/20 09:02 LD 3 Cancelled 02/15/20 09:02 LD 4 Cancelled 02/15/20 09:02 LD 5 Cancelled 02/15/20 09:02 Troponin I 0.09 ng/Ml (<0.06) H* 02/15/20 06:25 Total Protein 6.4 g/dL (6.4-8.2) 02/14/20 17:38 Albumin 2.3 g/dL (3.4-5.0) L 02/14/20 17:38 Urine Color Crista (Yellow) 02/14/20 17:24 Urine Clarity Cloudy (Clear) 02/14/20 17:24 Urine pH 6.0 (5-8) 02/14/20 17:24 Ur Specific [place] >= 1.030 (1.005-1.025) H 02/14/20 17:24 Urine Protein >=300 mg/dL (Negative) H 02/14/20 17:24 Urine Ketones Negative mg/dL (Negative) 02/14/20 17:24 Urine Blood Large (Negative) H 02/14/20 17:24 Urine Nitrite Negative (Negative) 02/14/20 17:24 Urine Bilirubin Small (Negative) H 02/14/20 17:24 Urine Urobilinogen 0.2 EU/dL (Up TO 0.2) 02/14/20 17:24 Ur Leukocyte Esterase Small (Negative) H 02/14/20 17:24 Urine RBC >50 HPF (0-2) H 02/14/20 17:24 Urine WBC >50 HPF (0-5) H 02/14/20 17:24 Ur Epithelial Cells Negative HPF (Negative) 02/14/20 17:24 Urine Crystals Negative HPF (Negative) 02/14/20 17:24 Urine Bacteria Packed HPF (Negative) 02/14/20 17:24 Urine Mucus Negative (Negative) 02/14/20 17:24 Urine Other Moderate renal (Negative) 02/14/20 17:24 Ur Culture Indicated? C&s done as ordered 02/14/20 17:24 Urine Glucose Negative mg/dL (Negative) 02/14/20 17:24
[2020-02-16 10:59] LABS: Campylobacter PCR Negative (Negative); Salmonella PCR Negative (Negative); Shiga Toxin PCR Negative (Negative); Shigella/Enteroinvasive Ecoli Negative (Negative)
[2020-02-16] MEDS: Cholestyramine/Aspartame PKT 1 EACH PO ×3 (11:37→20:33)
[2020-02-16] MEDS: Loperamide 2 MG CAP PO (11:38)
[2020-02-16 15:34] VITALS: BP 134/68; PULSE 71; RESP 20; TEMP 36.8; O2SAT 96
--- NOTE | 2020-02-16 18:43 | PCNE_ITS ---
Date of service: 02/16/20 Time of Service: 12:00 History of Present Illness History of Present Illness Chief Complaint: goals of care conversation, end-stage lymphoma Narrative: I met with Mr Gonzales and his daughter, Ceci, who is his DPOA. She lives in [facility]. Her father usually lives alone in [facility]. His second about 3 years ago. He was from Ceci's mother many years ago. Mr Gonzales is feeling better than he did on admission. He is no longer having diarrhea. He is afebrile. It is thought that most of his symptoms were a reaction to the chemotherapy he had not long before admission. The hospitalist team spoke with his primary oncologist, Dr Cristal Bain. Per their notes, Dr Bain recommended hospice at this time for Mr. Gonzales. He reports he was first diagnosed with lymphoma 7 years ago. He feels Dr Bain and her team has given him many more years than he expected to have. We discussed hospice. His daughter is unable to be his primary caregiver as his house is not wheelchair accessible. There is no ramp and the doorways are not wide enough for her to maneuver her wheelchair. He likely still has months to live (though it is hard to tell on first meeting him.) He had recently filled out an advance directive that was not consistent with his goals of care and proposed plans today. That document said he wanted very aggressive treatment, including being a ventilator for in indefinite period of time. We filled out a COLST form today that indicated he is DNR/DNI, [employer]. He had been unwilling to go to a SNF after this admission, per Care Management. Today, he noted that he realizes he is too weak to be home alone. His daughter also had severe concerns about the state of his health. Apparently, he had copious amounts of diarrhea with incontinence prior to this admission. The house will need to be deeply cleaned, she reports. Consults Consult date: 02/16/20 Requesting physician: Lennie Guerrero Assessment and Plan Assessment and plan (1) POLST (Physician Orders for Life-Sustaining Treatment): Status: Acute Assessment and plan: Reviewed COLST form with Patel and his daughter. With discussion and explanation, he chose very different measures when compared it to his recently filled out Advance Directives. He said he did the Advance Directives on his own, without any guidance and not full understanding of the procedures described and his overall health. Patel did not understand what his prognosis was, (I explained that Dr Bain thought he had six months or less if she recommended hospice). He did not know what his chances were of surviving a code, what it meant to be on a ventilator, especially indefinitely. His goals include being able to communicate with those around him. He would like to be able to return home, though this appears to be out of the question. He would like his daughter to help him with all his finances. He would like to remain comfortable and mobile as long as he can. He would like to get stronger, if possible. He is willing to go to a SNF with the aim of getting stronger. (2) Encounter for hospice care discussion: Status: Acute Assessment and plan: He does qualify for hospice, but unfortunately, his insurance will not pay for room and board at [facility] and R if he goes on hospice. He does not have the finances that would allow him to pay for his room and board on his own. Care Management investigated whether would help him with these costs; it will not. (3) Goals of care, counseling/discussion: Status: Acute Assessment and plan: After further discussion and exploration of Patel's values and current state of health, he did opt for DNR/DNI, [employer], antibiotics and IVF for comfort only, no feeding tube, no transfer. 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 He knows that he has run out of options that his body will tolerate. Review of Systems Constitutional Constitutional: Reports fatigue, Reports fever(s) (prior to admission), Reports frequent falls, Reports lethargy, Reports poor appetite, Reports weakness and Reports weight loss Eyes Eyes: Reports requires corrective lenses ENT Ears, Nose, Mouth, and Throat: Reports abnormal hearing, Reports hearing loss, Reports disequilibrium and Reports other (multiple falls prior to admission) Cardiovascular Cardiovascular: Reports lightheadedness, Reports dyspnea and Reports dyspnea on exertion Respiratory Respiratory: Reports dyspnea and Reports dyspnea on exertion Gastrointestinal Gastrointestinal: Reports abdominal pain, Reports early satiety, Reports diarrhea, Reports loose stools and Reports nausea Comments: at the time of my exam, his GI symptoms, except for early satiety, has resolved Genitourinary Genitourinary: Reports oliguria and Reports difficulty urinating Comments: now that he is being rehydrated, making more urine Musculoskeletal Musculoskeletal: Reports atrophy and Reports muscle weakness Integumentary/Breasts Skin/Breast: Reports dry skin and Reports unusual bruising Neurologic Neurologic: Reports abnormal hearing, Reports frequent falls, Reports memory loss (mild), Reports disequilibrium and Reports weakness Psychiatric Psychiatric: Reports abnormal sleep pattern, Reports difficulty concentrating and Reports memory loss (mild) Endocrine Endocrine: Reports fatigue Hematologic/Lymphatic Hematologic/Lymphatic: Reports easy bruising [facility] Medical History (Updated 02/16/20 @ 18:57 by Anuradha Victoria MD) Allergic rhinitis (Chronic) Benign prostatic hypertrophy without urinary obstruction (Chronic) Chronic renal impairment (Chronic) Diabetes type 2, controlled (Chronic) Diffuse large B cell lymphoma (Chronic) DNI (do not intubate) (Acute) DNR (do not resuscitate) (Acute) Encounter for hospice care discussion (Acute) Goals of care, counseling/discussion (Acute) Gout (Chronic) Hypercholesterolemia (Chronic) Hypertension (Chronic) Palliative care patient (Acute) Peripheral venous insufficiency (Chronic) POLST (Physician Orders for Life-Sustaining Treatment) (Acute) signed 02/16/20; DNI/DNR, [employer], no transfer Polyp of colon (Inactive) Urinary retention (Chronic) Surgical History Colonoscopy - MAC (Inactive 07/08/16) Mediport placement (Chronic) Family History (Updated 02/16/20 @ 19:00 by Anuradha Victoria MD) Mother , about age 80 Heart disease FH: sudden cardiac (SCD) Father , about age 80 Heart disease Son No problems noted. Son No problems noted. 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 Duration: < 15 minutes/day Frequency: 1-2 times per week Special farzad needs: No Seatbelt use: always Working smoke detector in home: Yes Fire extinguisher in home: Yes Do you feel safe at home: No Do you feel safe in your relationship?: Yes Additional Social history: three years ago. Believes at current time he is in no position to be at home with his weakness and loss of appetite. Daughter is DPOA. One son in [facility] x years; other in [place] but not regularly involved. Daughter WC bound. Cannot live at [facility] [place] not WC accessible. Looking for SNF closer to [place]. Willing to accept [facility] SNF temporarily. Exam Const General: cooperative, comfortable, no acute distress and ill appearing chronically Nutritional Appearance: cachectic Orientation: alert, awake and oriented x3 HENWA Head: normocephalic and atraumatic Teeth and gingiva: poor dentition and other (missing many teeth) Resp Effort & Inspection: normal respiratory effort Cardio Rate: regular rate GI Inspection: normal to inspection General: other (arango to gravity) Skin General skin exam: dry skin and ecchymosis Hair: general thinning Neuro General: patient alert, patient awake and patient oriented x3 Cognition: abnormal cognition (mild cognitive impairment; decisions are not always consistent without guid) Speech: speech normal Sensory Exam: no sensory deficits noted Extrem General: normal to inspection, full ROM, no pedal edema and muscle atrophy Psych Appearance: grossly normal Mental Status: mental status grossly normal Mood: anxious mood (when talking about discharge plans; needs lots of repetition, help with dec) Affect: anxious affect Attitude: cooperative Thought Process: impoverished Insight: fair Judgment: fair Other: needs help with decision making, establishing goals, then making plans that allow him to achieve those goals---as much as possible Results Last Vital Signs Temp 98.2 F 02/16/20 15:34 Pulse 71 02/16/20 15:34 Resp 20 02/16/20 15:34 BP 134/68 02/16/20 15:34 Pulse Ox 96 02/16/20 15:34 Labs Result diagrams: 02/15/20 06:25 02/15/20 06:25 Labs: Laboratory Results - last 24 hr 02/14/20 17:15 Stool Campylobacter PCR Negative Stool Salmonella PCR Negative Stool Shigella PCR Negative Shiga Toxin (PCR) Negative
[2020-02-17] MEDS: Metoprolol 25 MG TAB PO ×3 (03:47→20:34)
[2020-02-17] MEDS: POTASSIUM CHLORIDE/0.9% NACL 1,000 ML 125 MEQ IV ×2 (05:13→14:23)
[2020-02-17] MEDS: Cholestyramine/Aspartame PKT 1 EACH PO ×4 (06:33→20:34)
[2020-02-17 07:29] VITALS: BP 156/61; PULSE 76; RESP 26; TEMP 36.3; O2SAT 96
--- NOTE | 2020-02-17 08:47 | PDOC.CMPRO ---
- If Service Date Differs Date of service: 02/17/20 Time of Service: 08:48 Care Management Progress Note S/O: Luis was sitting up in a chair when CM met with him. He was pleasant and readily engaged in conversation with CM. Luis stated that his speech was really hard to understand yesterday but that it is better today. Overall he said he is feeling better physically but that he is having to make some difficult living decisions. He talked a bit about SNF placement and his willingness to go even though it is not his preference. A referral had been sent to [facility] however no determination re: admission has been made. All of the [facility] have a new admission process which includes Covid-19 screening; this lengthens the pre-admission process. If accepted, Luis will likely transfer tomorrow. A: Luis is a 84 year old male admitted to [facility] on 02/14/2020 for dehydration, chemo induced diarrhea, and suspected UTI. P: Patel will likely transfer to a SNF at discharge. A referral has been sent to [facility]. CM will continue to follow and support patient, family and discharge planning needs. cc:
[2020-02-17] MEDS: CEFEPIME 1 GM in Normal Saline 50 ML IVPB (09:01)
[2020-02-17] MEDS: Calcium 600mg/Vit D 200U TAB 2 TAB PO ×2 (09:01→20:34)
[2020-02-17 15:25] VITALS: BP 164/68; PULSE 79; RESP 22; TEMP 36.9; O2SAT 96
--- NOTE | 2020-02-17 15:45 | PTTR_ITS ---
Date of service: 02/17/20 Time of Service: 10:25 PT Notes Visit Reasons: DEHYDRATION,CHEMO INDUCED DIARRHEA;SUSPECTED UTI Physical Therapy Inpatient Treatment Note Date: February 17, 2020 PRECAUTIONS: Fall. Standard. Activity as tolerated. SUBJECTIVE: Patient expresses his disappointment about hearing the bad news yesterday about his cancer. He states that according to the doctor he may just have a couple of months to live. He is agreeable to a jail facility placement of that he thinks has been initiated by care management. He states he has not slept well last night thinking about the bed notes he heard. He did clarify that he has not had any episode of diarrhea since this morning, the last episode he had was last night. He is agreeable to doing seated edge of bed exercises and was amenable to doing short distance ambulation to transfer to the recliner for lunch. In the afternoon session, patient stated that he is scheduled to go to a jail facility across the street in the morning tomorrow. OBJECTIVE: Telemetry monitoring in place. Finney catheter in place. IV access to left pectoral area. PAIN: None reported BED MOBILITY/TRANSFERS Rolling minimal assist Supine to sit minimal assist with HOB at 30 degrees, patient pulled on PT's hand to sit up. In the afternoon patient only required SBA with HOB 45 degrees using BUE for support Sit to supine minimal assist with HOB at 30 degrees, patient pulled on PT's hand to sit up. In the afternoon patient only required SBA with HOB 45 degrees using BUE for support Sit to stand CGA, patient able to use BUE for support, required FWW Stand to sit CGA, patient able to use BUE for support, required FWW Bed to chair CGA, patient able to use BUE for support, required FWW Chair to bed CGA, patient able to use BUE for support, required FWW GAIT: Patient tolerated level surface ambulation of 10 feet in the morning and 40 feet in the afternoon using the front wheeled walker requiring CGA of PT and minimal verbal cueing for walker management and overall safety. Decreased appetite. Decreased tristin. Mild SOB seen after activity THEREX: Completed open chain UE/LE range of motion exercises consisting of ankle dorsiflexion/plantarflexion x20, long arc quads x10, seated hip flexion x10, and shoulder horizontal abduction adduction coordinated with deep breathing exercises to allow for adequate chest expansion. In the afternoon patient tolerated supine [id number] x10 for 2 reps with bedside chair fully reclined. Tolerated all exercises without complaint. ASSESSMENT: Patient demonstrates increase ability to tolerate range of motion exercises and transfer as well as ambulation test performance with minimal breathlessness noted. Patient did not complain of any pain during PT session. Patient will continue to benefit from skilled physical therapy services to minimize further functional mobility decline and reduce fall risk. PLAN: Continue with PT POC as initially established. Patient will benefit from jail facility placement for continued skilled physical therapy s ervices in order to progress mobility level, strength, and balance in preparation for a safe discharge to home. TREATMENT CODE/TIME: Session 1--[id number] x 15 minutes, [id number] x 15 minutes, beginning at 10:25 AM. Session 2--86068 x 13 minutes, [id number] x10 minutes beginning at 3:45 PM.
--- NOTE | 2020-02-17 16:19 | PGE_ITS ---
Date of Service Date of service: 02/17/20 Time of Service: 16:19 Assessment and Plan Assessment and plan (1) End of life care: Status: Acute Assessment and plan: Diffuse large B cell lymphoma, With mets to the bone. has been on modified SPACER TYPE BAR AND SEGMENT, palliative care consult continue no fingersticks, no am labs, was kept on abx but blood cultures negative, urine negative, stool negative, chest xray stable,. completed. day 3 cefepime. will discontinue. patient taking po fluids well, will discontinue IV fluids case management following, referrals placed to [facility] rehab, pending bed acceptance. (2) Diarrhea: Status: Acute Assessment and plan: likely d/t chemo, stool cultures negative. improved on questran and imodium. continue triple cream to rectal area as needed. Subjective Subjective Patient reports: no new complaints Exam Narrative Exam Narrative: General: cooperative, comfortable, no acute distress and ill appearing chronically Nutritional Appearance: cachectic Orientation: alert, awake and oriented x3 Resp Effort & Inspection: normal respiratory effort Cardio Rate: regular rate GI Inspection: normal to inspection General: other (arango to gravity) Neuro General: patient alert, patient awake and patient oriented x3 Cognition: normal cognition Speech: speech normal Extrem General: normal to inspection, full ROM and no pedal edema Objective Objective Clinical Data: Vital Signs Temperature 36.9 C 02/17/20 15:25 Temperature Source Tympanic 02/17/20 15:25 Pulse 79 02/17/20 15:25 Pulse Rhythm Regular 02/17/20 09:28 Respiratory Rate 22 02/17/20 15:25 Respiratory Effort Incrsd Work of Breathing 02/17/20 09:28 Respiratory Depth Deep 02/17/20 09:28 Respiratory Pattern Normal 02/17/20 09:28 Blood Pressure 164/68 H 02/17/20 15:25 Pulse Oximetry 96 02/17/20 15:25 Oxygen Delivery Method Room Air 02/17/20 15:25 Oxygen Flow Rate 0 02/17/20 15:25 Pain Level 0 02/17/20 15:25 Comment 02/16/20 04:26 Intake & Output 02/16/20 02/17/20 02/17/20 23:59 11:59 23:59 Intake Total 3030 / 4800 450 / 1450 1000 / 1450 Output Total 1175 / 2825 1650 / 2325 675 / 2325 Balance 1854 / 1974 -1200 / -875 325 / -875 Weight 68.7 kg Intake: IV 2050 / 3100 1000 / 1000 Oral 980 / 1700 450 / 450 Output: Urine 1175 / 2825 1650 / 2325 675 / 2325 Other: Urine Color Straw Yellow Yellow Urine Appearance Clear Clear Cloudy Mucous Threads Laboratory Results WBC 19.81 k/cumm (4.4-10.8) H 02/15/20 06:25 RBC 3.27 m/cumm (4.50-6.00) L 02/15/20 06:25 Hgb 10.7 g/dL (13.5-17.5) L 02/15/20 06:25 Hct 30.7 % (40.0-50.0) L 02/15/20 06:25 MCV 93.9 fL (80-95) 02/15/20 06:25 MCH 32.7 pg (27.0-33.0) 02/15/20 06:25 MCHC 34.9 g/dL (32.0-36.0) 02/15/20 06:25 RDW 15.1 % (11.8-14.1) H 02/15/20 06:25 Plt Count 267 x1000/uL (130-400) 02/15/20 06:25 MPV 9.9 fL (8.0-11.0) 02/15/20 06:25 Immature Gran % 0.0 % 02/15/20 06:25 Neutrophils % 92.0 02/15/20 06:25 Band Neutrophils % 2.0 % 02/15/20 06:25 Lymphocytes % 1.0 02/15/20 06:25 Monocytes % 5.0 02/15/20 06:25 Eosinophils % 0.0 02/15/20 06:25 Basophils % 0.0 02/15/20 06:25 Absolute Neutrophils 18.62 k/cumm (1.2-6.7) H 02/15/20 06:25 Absolute Lymphocytes 0.20 k/cumm (1.2-3.4) L 02/15/20 06:25 Absolute Monocytes 0.99 k/cumm (0.11-0.7) H 02/15/20 06:25 Absolute Eosinophils 0.00 k/cumm (0.0-0.7) 02/15/20 06:25 Absolute Basophils 0.00 k/cumm (0.0-0.2) 02/15/20 06:25 Differential Comment Manual differential 02/15/20 06:25 RBC Morphology See below 02/14/20 17:38 Polychromasia Present 02/14/20 17:38 Emmett Cells 2+ 02/14/20 17:38 Sodium 137 mmol/L (136-145) 02/15/20 06:25 Potassium 2.5 mmol/L (3.5-5.1) L* 02/15/20 06:25 Chloride 106 mmol/L (98-107) 02/15/20 06:25 Carbon Dioxide 13.1 mmol/L (21.0-32.0) L 02/15/20 06:25 Anion Gap 17.9 mmol/L (3-11) H 02/15/20 06:25 BUN 68 mg/dL (7-18) H 02/15/20 06:25 Creatinine 3.84 mg/dL (0.70-1.30) H* 02/15/20 06:25 Estimated GFR/1.73 m2 15.14 (mL/min/1.73m2) 02/15/20 06:25 Glucose 114 mg/dL (74-106) H D 02/15/20 06:25 Lactate 1.5 mmol/L (0.6-1.4) H 02/15/20 09:30 Uric Acid 10.6 mg/dL (3.5-7.2) H 02/14/20 17:38 Calcium 6.2 mg/dL (8.5-10.1) L* 02/15/20 06:25 Magnesium 2.3 mg/dL (1.8-2.4) 02/15/20 06:25 Total Bilirubin 3.6 mg/dL (0.2-1.0) H 02/14/20 17:38 Conjugated Bilirubin 2.65 mg/dL (0.00-0.20) H 02/14/20 17:38 AST 49 U/L (15-37) H 02/14/20 17:38 ALT 83 U/L (16-63) H 02/14/20 17:38 Alkaline Phosphatase 214 U/L (46-116) H 02/14/20 17:38 Lactate Dehydrogenase Cancelled 02/15/20 09:02 LD Total Cancelled 02/15/20 09:02 LD Isoenzymes Cancelled 02/15/20 09:02 LD 1 Cancelled 02/15/20 09:02 LD 2 Cancelled 02/15/20 09:02 LD 3 Cancelled 02/15/20 09:02 LD 4 Cancelled 02/15/20 09:02 LD 5 Cancelled 02/15/20 09:02 Troponin I 0.09 ng/Ml (<0.06) H* 02/15/20 06:25 Total Protein 6.4 g/dL (6.4-8.2) 02/14/20 17:38 Albumin 2.3 g/dL (3.4-5.0) L 02/14/20 17:38 Urine Color Crista (Yellow) 02/14/20 17:24 Urine Clarity Cloudy (Clear) 02/14/20 17:24 Urine pH 6.0 (5-8) 02/14/20 17:24 Ur Specific [place] >= 1.030 (1.005-1.025) H 02/14/20 17:24 Urine Protein >=300 mg/dL (Negative) H 02/14/20 17:24 Urine Ketones Negative mg/dL (Negative) 02/14/20 17:24 Urine Blood Large (Negative) H 02/14/20 17:24 Urine Nitrite Negative (Negative) 02/14/20 17:24 Urine Bilirubin Small (Negative) H 02/14/20 17:24 Urine Urobilinogen 0.2 EU/dL (Up TO 0.2) 02/14/20 17:24 Ur Leukocyte Esterase Small (Negative) H 02/14/20 17:24 Urine RBC >50 HPF (0-2) H 02/14/20 17:24 Urine WBC >50 HPF (0-5) H 02/14/20 17:24 Ur Epithelial Cells Negative HPF (Negative) 02/14/20 17:24 Urine Crystals Negative HPF (Negative) 02/14/20 17:24 Urine Bacteria Packed HPF (Negative) 02/14/20 17:24 Urine Mucus Negative (Negative) 02/14/20 17:24 Urine Other Moderate renal (Negative) 02/14/20 17:24 Ur Culture Indicated? C&s done as ordered 02/14/20 17:24 Urine Glucose Negative mg/dL (Negative) 02/14/20 17:24 Stool Campylobacter PCR Negative (Negative) 02/14/20 17:15 Stool Salmonella PCR Negative (Negative) 02/14/20 17:15 Stool Shigella PCR Negative (Negative) 02/14/20 17:15 Shiga Toxin (PCR) Negative (Negative) 02/14/20 17:15
[2020-02-17 19:30] VITALS: BP 151/75; PULSE 88; RESP 24; TEMP 36.6; O2SAT 98
[2020-02-17 23:49] VITALS: BP 116/66; PULSE 98; RESP 28; TEMP 37.2; O2SAT 96
[2020-02-18] MEDS: Metoprolol 25 MG TAB PO ×2 (03:48→13:38)
[2020-02-18 03:49] VITALS: BP 141/53
[2020-02-18] MEDS: Cholestyramine/Aspartame PKT 1 EACH PO ×2 (06:21→13:18)
[2020-02-18 07:10] VITALS: BP 160/65; PULSE 70; RESP 21; TEMP 36.6; O2SAT 97
[2020-02-18] MEDS: Heparin 500 UNITS/5 ML SYRINGE IVP (07:49)
[2020-02-18] MEDS: Calcium 600mg/Vit D 200U TAB 2 TAB PO (08:54)
--- NOTE | 2020-02-18 10:22 | NUR.NOTE ---
pt appears more short of breath without exertion and uncomfortable and restless, RT Jeevan took O2 sat 97% room air. RN to check if patient has medication for anxiety. restlessness increasing. Patient denies pain will notify [employer] .Nursing Note:
--- NOTE | 2020-02-18 12:35 | W.NUTRFU ---
Date of service: 02/18/20 Time of Service: 12:35 Nutritional Follow up NOTE: Luis continues to decline nutritionally, has lost 6 lbs since admission, po intake <25% of meals. Nursing reports will drink glucerna shakes. Met with Luis today but he continues to decline meal options and states he does not want to eat. He does not want artificial nutrition if unable to meet nutrient needs by mouth. Will continue to provide glucerna shakes and meals of choice. At high risk for dehydration, pressure wounds and further nutritional decline. Time Spent in Nutritional Counseling and Treatment: 10 min spent face to face
[2020-02-18] MEDS: LORazepam 0.5 MG TAB PO (13:38)
--- NOTE | 2020-02-18 14:49 | PDOC.CMPRO ---
- If Service Date Differs Date of service: 02/18/20 Time of Service: 14:49 Care Management Progress Note S/O: Patel remains inpatient today his condition has changed, he is having more difficulty with his breathing he reports to the nurse he is done. CM contacted his daughter and explained the change she agrees to his symptoms being managed with mediation including morphine and ativan. CM has requested she return to the area to see her father. She is currently in [facility] and request that share the message she loves him. Edwige number is [phone]. A:Patel is an 84 year old male admitted with dehydration, chemo induced diarrhea. Placed on comfort measures only. P:Luis is comfort measure only, anticipate he will have end of life care here at [facility] and rehab. However given his current state he may not survive the weekend for transfer if accepted. Daughter has been notified and will return to the area.
--- NOTE | 2020-02-18 14:50 | PT.INTREAT ---
Date of service: 02/18/20 Time of Service: 14:50 PT Notes Visit Reasons: DEHYDRATION,CHEMO INDUCED DIARRHEA;SUSPECTED UTI Physical Therapy Inpatient Treatment Note Date: February 18, 2020 PRECAUTIONS: Fall. Standard. Activity as tolerated. SUBJECTIVE: Patient did not want to be moved out of bed today nor did he want to eat anything. He states that something is going on that he does not know. Patient denies any pain for both sessions. OBJECTIVE: Telemetry monitoring in place. Finney catheter in place. IV access to left pectoral area. Patient appeared dyspneic at rest and is mildly confused. He attempted to take off his gown stating that he does not want it and when asked if he was warm he said he was not. He appeared to be gasping for air every after 2-3 word utterances. Charge nurse and RT informed about said observation. Nurse Giselle stated that patient's confusion increased last night as patient attempted to pull out his catheter. RT measured patient's oxygen saturation and found it to be at 97% on room air. In the afternoon, patient appeared to be on and off lucidity being able to answer 1 question and then responding inappropriately to the next question. PAIN: None reported THERA ACT: Provided positioning assistance to patient with the help of an [employer] in order to facilitate better breathing and maximize comfort while in bed. For the afternoon session, patient was encouraged to sit up on the edge of the bed which she was able to perform. However, patient appeared unable to hold himself up and using both his hands to stabilize himself. Patient became more out of breath and requested to lie back down in bed. Patient was again repositioned appropriately with the help of an [employer]. ASSESSMENT: Patient appeared to be significantly limited with activity tolerance today. Mental status change has considerably limited his ability to participate in today's sessions. Will continue to assess appropriateness of patient for continued skilled physical therapy services in the next 1 to 2 days and will coordinate with care management as needed. PLAN: Continue with PT POC as initially established. Patient will benefit from [facility] facility placement for continued skilled physical therapy services in order to progress mobility level, strength, and balance in preparation for a safe discharge to home. TREATMENT CODE/TIME: Session 1--86599 x 19 minutes beginning at 9:45 AM. Session 2--[id number] x 15 minutes beginning at 14:50 PM.
--- NOTE | 2020-02-18 17:07 | PGE_ITS ---
Date of Service Date of service: 02/18/20 Time of Service: 17:07 Assessment and Plan Assessment and plan (1) End of life care: Status: Acute Assessment and plan: marked decline overnight, added ativan today, which helped some but will need morphine pump for respiratory distress. palliative provider called and returned for evaluation, agrees with current plan and will update family. adjust rate as needed for comfort. all oral medications discontinued. patient will likely now stay here in setting of abrupt decline. case management following. Subjective Subjective Interval history since last seen: patient with marked decline overnight. increased confusion, respiratory distress and restlessness. pulled out chowdary needle last night, so no IV access currently. not taking in po. Exam Narrative Exam Narrative: Exam Narrative: General: confused, restless, no mild to moderate distress and ill appearing chronically Nutritional Appearance: cachectic Orientation: alert, oriented to person Resp Effort & Inspection: mild respiratory distress, rales bases, no wheezing Cardio Rate: regular rate GI Inspection: normal to inspection General: other (arango to gravity) Neuro General: patient alert, confused General: normal to inspection, full ROM and no pedal edema Objective Objective Clinical Data: Vital Signs Temperature 36.6 C 02/18/20 07:10 Temperature Source Tympanic 02/18/20 07:10 Pulse 70 02/18/20 07:10 Pulse Rhythm Regular 02/18/20 08:05 Respiratory Rate 21 02/18/20 07:10 Respiratory Effort 02/18/20 08:05 Respiratory Depth Normal 02/18/20 08:05 Respiratory Pattern Irregular 02/18/20 08:05 Blood Pressure 160/65 H 02/18/20 07:10 Pulse Oximetry 97 02/18/20 07:10 Oxygen Delivery Method Room Air 02/18/20 07:10 Oxygen Flow Rate 0 02/18/20 07:10 Pain Level 0 02/18/20 07:10 Comment 02/17/20 23:49 Intake & Output 02/17/20 02/18/20 02/18/20 23:59 11:59 23:59 Intake Total 1120 / 1570 250 / 730 480 / 730 Output Total 1775 / 3425 1300 / 1500 200 / 1500 Balance -655 / -1855 -1050 / -770 280 / -770 Weight 67.7 kg Intake: IV 1000 / 1000 Oral 120 / 570 250 / 730 480 / 730 Output: Urine 1775 / 3425 1300 / 1500 200 / 1500 Other: Urine Color Yellow Yellow Yellow Urine Appearance Clear Clear Clear Stool Occult Blood Negative Stool Size Large Large Stool Characteristics Soft Liquid Liquid Brown Laboratory Results WBC 19.81 k/cumm (4.4-10.8) H 02/15/20 06:25 RBC 3.27 m/cumm (4.50-6.00) L 02/15/20 06:25 Hgb 10.7 g/dL (13.5-17.5) L 02/15/20 06:25 Hct 30.7 % (40.0-50.0) L 02/15/20 06:25 MCV 93.9 fL (80-95) 02/15/20 06:25 MCH 32.7 pg (27.0-33.0) 02/15/20 06:25 MCHC 34.9 g/dL (32.0-36.0) 02/15/20 06:25 RDW 15.1 % (11.8-14.1) H 02/15/20 06:25 Plt Count 267 x1000/uL (130-400) 02/15/20 06:25 MPV 9.9 fL (8.0-11.0) 02/15/20 06:25 Immature Gran % 0.0 % 02/15/20 06:25 Neutrophils % 92.0 02/15/20 06:25 Band Neutrophils % 2.0 % 02/15/20 06:25 Lymphocytes % 1.0 02/15/20 06:25 Monocytes % 5.0 02/15/20 06:25 Eosinophils % 0.0 02/15/20 06:25 Basophils % 0.0 02/15/20 06:25 Absolute Neutrophils 18.62 k/cumm (1.2-6.7) H 02/15/20 06:25 Absolute Lymphocytes 0.20 k/cumm (1.2-3.4) L 02/15/20 06:25 Absolute Monocytes 0.99 k/cumm (0.11-0.7) H 02/15/20 06:25 Absolute Eosinophils 0.00 k/cumm (0.0-0.7) 02/15/20 06:25 Absolute Basophils 0.00 k/cumm (0.0-0.2) 02/15/20 06:25 Differential Comment Manual differential 02/15/20 06:25 RBC Morphology See below 02/14/20 17:38 Polychromasia Present 02/14/20 17:38 Neil Cells 2+ 02/14/20 17:38 Sodium 137 mmol/L (136-145) 02/15/20 06:25 Potassium 2.5 mmol/L (3.5-5.1) L* 02/15/20 06:25 Chloride 106 mmol/L (98-107) 02/15/20 06:25 Carbon Dioxide 13.1 mmol/L (21.0-32.0) L 02/15/20 06:25 Anion Gap 17.9 mmol/L (3-11) H 02/15/20 06:25 BUN 68 mg/dL (7-18) H 02/15/20 06:25 Creatinine 3.84 mg/dL (0.70-1.30) H* 02/15/20 06:25 Estimated GFR/1.73 m2 15.14 (mL/min/1.73m2) 02/15/20 06:25 Glucose 114 mg/dL (74-106) H D 02/15/20 06:25 Lactate 1.5 mmol/L (0.6-1.4) H 02/15/20 09:30 Uric Acid 10.6 mg/dL (3.5-7.2) H 02/14/20 17:38 Calcium 6.2 mg/dL (8.5-10.1) L* 02/15/20 06:25 Magnesium 2.3 mg/dL (1.8-2.4) 02/15/20 06:25 Total Bilirubin 3.6 mg/dL (0.2-1.0) H 02/14/20 17:38 Conjugated Bilirubin 2.65 mg/dL (0.00-0.20) H 02/14/20 17:38 AST 49 U/L (15-37) H 02/14/20 17:38 ALT 83 U/L (16-63) H 02/14/20 17:38 Alkaline Phosphatase 214 U/L (46-116) H 02/14/20 17:38 Lactate Dehydrogenase Cancelled 02/15/20 09:02 LD Total Cancelled 02/15/20 09:02 LD Isoenzymes Cancelled 02/15/20 09:02 LD 1 Cancelled 02/15/20 09:02 LD 2 Cancelled 02/15/20 09:02 LD 3 Cancelled 02/15/20 09:02 LD 4 Cancelled 02/15/20 09:02 LD 5 Cancelled 02/15/20 09:02 Troponin I 0.09 ng/Ml (<0.06) H* 02/15/20 06:25 Total Protein 6.4 g/dL (6.4-8.2) 02/14/20 17:38 Albumin 2.3 g/dL (3.4-5.0) L 02/14/20 17:38 Urine Color Crista (Yellow) 02/14/20 17:24 Urine Clarity Cloudy (Clear) 02/14/20 17:24 Urine pH 6.0 (5-8) 02/14/20 17:24 Ur Specific [place] >= 1.030 (1.005-1.025) H 02/14/20 17:24 Urine Protein >=300 mg/dL (Negative) H 02/14/20 17:24 Urine Ketones Negative mg/dL (Negative) 02/14/20 17:24 Urine Blood Large (Negative) H 02/14/20 17:24 Urine Nitrite Negative (Negative) 02/14/20 17:24 Urine Bilirubin Small (Negative) H 02/14/20 17:24 Urine Urobilinogen 0.2 EU/dL (Up TO 0.2) 02/14/20 17:24 Ur Leukocyte Esterase Small (Negative) H 02/14/20 17:24 Urine RBC >50 HPF (0-2) H 02/14/20 17:24 Urine WBC >50 HPF (0-5) H 02/14/20 17:24 Ur Epithelial Cells Negative HPF (Negative) 02/14/20 17:24 Urine Crystals Negative HPF (Negative) 02/14/20 17:24 Urine Bacteria Packed HPF (Negative) 02/14/20 17:24 Urine Mucus Negative (Negative) 02/14/20 17:24 Urine Other Moderate renal (Negative) 02/14/20 17:24 Ur Culture Indicated? C&s done as ordered 02/14/20 17:24 Urine Glucose Negative mg/dL (Negative) 02/14/20 17:24 Stool Campylobacter PCR Negative (Negative) 02/14/20 17:15 Stool Salmonella PCR Negative (Negative) 02/14/20 17:15 Stool Shigella PCR Negative (Negative) 02/14/20 17:15 Shiga Toxin (PCR) Negative (Negative) 02/14/20 17:15
--- NOTE | 2020-02-18 17:50 | PCPN_ITS ---
Date of service: 02/18/20 Time of Service: 15:50 Assessment and Plan Assessment and plan (1) End of life care: Status: Acute Assessment and plan: on PRESIDING JUDGE status; Evonne Lizarraga NP started Patel on low-dose morphine at 1 mg/hr. I agree with this plan. The morphine will help both his dyspnea and his intermittent pain, particularly with movement. I spoke to his daughter and she is coming up to be with him, planning on staying with him until he dies. I think he will over the weekend, though I explained to Ceci that this is hard to predict, even in people with both acute and chronic illnesses. (2) Delirium: Status: Acute Assessment and plan: Likely due to a combination of reasons, due to both his terminal lymphoma, his SIRS, and any other acute infection he may be experiencing. He was clear of mind when he filled out his COLST at my last Pall Care visit. (3) Goals of care, counseling/discussion: Status: Acute Assessment and plan: He would like to go home still, but this is impossible. We discussed him staying at [facility] until he dies; he is too sick to move to SNF at this time, and being at [facility] will allow him more privacy to be with his famil while he is dying. (4) Dyspnea: Status: Acute Assessment and plan: On low dose morphine to treat. Common symptom in terminally ill cancer patients, but not clear what is cause. 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 He is too sick to leave the hospital and his is expected imminently. Subjective Subjective Patient reports: shortness of breath (last oximeter reading 97%), fever (skin feels hot; no documented temp) and other (no cough, no coronvirus testing) Interval history since last seen: Mr. Gonzales took a turn for the worse today. He has been delirious, with very difficult- to- understand speech. He appears febrile with flushed cheeks and skin warm to the touch. He has told his nurse, his hospitalist, his child care supervisor and me that he thinks he is dying. He did not want to go to a SNF (our last plan) and he was unable to go home where he was living by himself. I spoke with his daughter and DPOA, Yue, who agreed that her father may have decided to change paths. He's always been very strong- minded, and if he has had enough, as he says he has, she doesn't think he will live long. Exam Const General: frail appearing and ill appearing Nutritional Appearance: thin Orientation: oriented to person [facility] Head: normocephalic and atraumatic Ears: hearing grossly impaired General nose exam: external nose normal Face and sinus: normal facial exam, face symmetric and dry mucous membranes Teeth and gingiva: poor dentition Eyes Eyelids: eyelid abnormality (intermittent ptosis) right upper eyelid and left upper eyelid Conjunctivae: conjunctival abnormality (injected) bilaterally Sclera: sclerae normal Resp Effort & Inspection: able to speak in complete sentences and uses accessory muscles Auscultation: crackles Cardio Jugular venous pressure: no JVD Rate: tachycardic Rhythm: regular rhythm GI Palpation: soft Auscultation: normal bowel sounds General: other (arango in place) Skin General skin exam: dry skin and other (flushed cheeks, skin warm to touch even through gloves) Hair: general thinning Neuro General: oriented Patient Orientation: Person and Confused Cognition: abnormal cognition Speech: abnormal speech (dysarthric) garbled Psych Appearance: disheveled Speech and Movement: restless Attitude: cooperative (though hard to understand his speech, some delirium) Thought Content: other (delirious with waxing and waning attention) Insight: limited Judgment: limited Objective Objective Clinical Data: Vital Signs Temperature 97.9 F 02/18/20 07:10 Temperature Source Tympanic 02/18/20 07:10 Pulse 70 02/18/20 07:10 Pulse Rhythm Regular 02/18/20 08:05 Respiratory Rate 21 02/18/20 07:10 Respiratory Effort 02/18/20 08:05 Respiratory Depth Normal 02/18/20 08:05 Respiratory Pattern Irregular 02/18/20 08:05 Blood Pressure 160/65 H 02/18/20 07:10 Pulse Oximetry 97 02/18/20 07:10 Oxygen Delivery Method Room Air 02/18/20 07:10 Oxygen Flow Rate 0 02/18/20 07:10 Pain Level 0 02/18/20 07:10 Comment 02/17/20 23:49 Intake & Output 02/17/20 02/18/20 02/18/20 23:59 11:59 23:59 Intake Total 1120 / 1570 250 / 730 480 / 730 Output Total 1775 / 3425 1300 / 1500 200 / 1500 Balance -655 / -1855 -1050 / -770 280 / -770 Weight 149 lb 4.047 oz Intake: IV 1000 / 1000 Oral 120 / 570 250 / 730 480 / 730 Output: Urine 1775 / 3425 1300 / 1500 200 / 1500 Other: Urine Color Yellow Yellow Yellow Urine Appearance Clear Clear Clear Stool Occult Blood Negative Stool Size Large Large Stool Characteristics Soft Liquid Liquid Brown Laboratory Results WBC 19.81 k/cumm (4.4-10.8) H 02/15/20 06:25 RBC 3.27 m/cumm (4.50-6.00) L 02/15/20 06:25 Hgb 10.7 g/dL (13.5-17.5) L 02/15/20 06:25 Hct 30.7 % (40.0-50.0) L 02/15/20 06:25 MCV 93.9 fL (80-95) 02/15/20 06:25 MCH 32.7 pg (27.0-33.0) 02/15/20 06:25 MCHC 34.9 g/dL (32.0-36.0) 02/15/20 06:25 RDW 15.1 % (11.8-14.1) H 02/15/20 06:25 Plt Count 267 x1000/uL (130-400) 02/15/20 06:25 MPV 9.9 fL (8.0-11.0) 02/15/20 06:25 Immature Gran % 0.0 % 02/15/20 06:25 Neutrophils % 92.0 02/15/20 06:25 Band Neutrophils % 2.0 % 02/15/20 06:25 Lymphocytes % 1.0 02/15/20 06:25 Monocytes % 5.0 02/15/20 06:25 Eosinophils % 0.0 02/15/20 06:25 Basophils % 0.0 02/15/20 06:25 Absolute Neutrophils 18.62 k/cumm (1.2-6.7) H 02/15/20 06:25 Absolute Lymphocytes 0.20 k/cumm (1.2-3.4) L 02/15/20 06:25 Absolute Monocytes 0.99 k/cumm (0.11-0.7) H 02/15/20 06:25 Absolute Eosinophils 0.00 k/cumm (0.0-0.7) 02/15/20 06:25 Absolute Basophils 0.00 k/cumm (0.0-0.2) 02/15/20 06:25 Differential Comment Manual differential 02/15/20 06:25 RBC Morphology See below 02/14/20 17:38 Polychromasia Present 02/14/20 17:38 Neil Cells 2+ 02/14/20 17:38 Sodium 137 mmol/L (136-145) 02/15/20 06:25 Potassium 2.5 mmol/L (3.5-5.1) L* 02/15/20 06:25 Chloride 106 mmol/L (98-107) 02/15/20 06:25 Carbon Dioxide 13.1 mmol/L (21.0-32.0) L 02/15/20 06:25 Anion Gap 17.9 mmol/L (3-11) H 02/15/20 06:25 BUN 68 mg/dL (7-18) H 02/15/20 06:25 Creatinine 3.84 mg/dL (0.70-1.30) H* 02/15/20 06:25 Estimated GFR/1.73 m2 15.14 (mL/min/1.73m2) 02/15/20 06:25 Glucose 114 mg/dL (74-106) H D 02/15/20 06:25 Lactate 1.5 mmol/L (0.6-1.4) H 02/15/20 09:30 Uric Acid 10.6 mg/dL (3.5-7.2) H 02/14/20 17:38 Calcium 6.2 mg/dL (8.5-10.1) L* 02/15/20 06:25 Magnesium 2.3 mg/dL (1.8-2.4) 02/15/20 06:25 Total Bilirubin 3.6 mg/dL (0.2-1.0) H 02/14/20 17:38 Conjugated Bilirubin 2.65 mg/dL (0.00-0.20) H 02/14/20 17:38 AST 49 U/L (15-37) H 02/14/20 17:38 ALT 83 U/L (16-63) H 02/14/20 17:38 Alkaline Phosphatase 214 U/L (46-116) H 02/14/20 17:38 Lactate Dehydrogenase Cancelled 02/15/20 09:02 LD Total Cancelled 02/15/20 09:02 LD Isoenzymes Cancelled 02/15/20 09:02 LD 1 Cancelled 02/15/20 09:02 LD 2 Cancelled 02/15/20 09:02 LD 3 Cancelled 02/15/20 09:02 LD 4 Cancelled 02/15/20 09:02 LD 5 Cancelled 02/15/20 09:02 Troponin I 0.09 ng/Ml (<0.06) H* 02/15/20 06:25 Total Protein 6.4 g/dL (6.4-8.2) 02/14/20 17:38 Albumin 2.3 g/dL (3.4-5.0) L 02/14/20 17:38 Urine Color Crista (Yellow) 02/14/20 17:24 Urine Clarity Cloudy (Clear) 02/14/20 17:24 Urine pH 6.0 (5-8) 02/14/20 17:24 Ur Specific [place] >= 1.030 (1.005-1.025) H 02/14/20 17:24 Urine Protein >=300 mg/dL (Negative) H 02/14/20 17:24 Urine Ketones Negative mg/dL (Negative) 02/14/20 17:24 Urine Blood Large (Negative) H 02/14/20 17:24 Urine Nitrite Negative (Negative) 02/14/20 17:24 Urine Bilirubin Small (Negative) H 02/14/20 17:24 Urine Urobilinogen 0.2 EU/dL (Up TO 0.2) 02/14/20 17:24 Ur Leukocyte Esterase Small (Negative) H 02/14/20 17:24 Urine RBC >50 HPF (0-2) H 02/14/20 17:24 Urine WBC >50 HPF (0-5) H 02/14/20 17:24 Ur Epithelial Cells Negative HPF (Negative) 02/14/20 17:24 Urine Crystals Negative HPF (Negative) 02/14/20 17:24 Urine Bacteria Packed HPF (Negative) 02/14/20 17:24 Urine Mucus Negative (Negative) 02/14/20 17:24 Urine Other Moderate renal (Negative) 02/14/20 17:24 Ur Culture Indicated? C&s done as ordered 02/14/20 17:24 Urine Glucose Negative mg/dL (Negative) 02/14/20 17:24 Stool Campylobacter PCR Negative (Negative) 02/14/20 17:15 Stool Salmonella PCR Negative (Negative) 02/14/20 17:15 Stool Shigella PCR Negative (Negative) 02/14/20 17:15 Shiga Toxin (PCR) Negative (Negative) 02/14/20 17:15
--- NOTE | 2020-02-19 11:16 | W.PM.PROGNOT ---
Date of Service Date of service: 02/19/20 Time of Service: 11:16 Assessment and Plan Assessment and plan (1) End of life care: Status: Acute Assessment and plan: Appears comfortable on morphine drip at 1 mg/hr. No longer eating or drinking. Sleeping most of the day and all night. Appears to be actively dying. Daughter present. Adjust morphine as needed for comfort including respiratory distress. Subjective Subjective Interval history since last seen: Mr. Victors daughter is present. He makes eye contact but is unable to answer questions. His daughter reports that he seems to be very comfortable, he remains on morphine drip at 1 mg/hr. She reports that he slept all night and has been sleeping most of the day. He is not eating or drinking. He moved his bowels yesterday. His daughter plans to remain present until he dies. Exam Narrative Exam Narrative: General: Thin, cachectic, elderly man, laying in bed, daughter present, made brief eye contact. Unable to answer questions. Sleepy. HEENT: Atraumatic, upper dentures in place, mouth open, mucous membranes very dry. Neck: Supple, no JVD. Cardiovascular: heart has regular rate and rhythm, distant heart sounds, tachycardic, no murmur appreciated. Respiratory: respirations appear unlabored, lungs sound clear on limited anterior and lateral exam. GI: thin, flat abdomen, +BS, soft, does not appear tender. Extremities: thin extremities, no edema, TEDs on bilaterally. Objective Objective Clinical Data: Vital Signs Temperature 36.6 C 02/18/20 07:10 Temperature Source Tympanic 02/18/20 07:10 Pulse 70 02/18/20 07:10 Pulse Rhythm Regular 02/18/20 08:05 Respiratory Rate 21 02/18/20 07:10 Respiratory Effort 02/19/20 08:45 Respiratory Depth Normal 02/19/20 08:45 Respiratory Pattern Normal 02/19/20 08:45 Blood Pressure 160/65 H 02/18/20 07:10 Pulse Oximetry 97 02/18/20 07:10 Oxygen Delivery Method Room Air 02/18/20 07:10 Oxygen Flow Rate 0 02/18/20 07:10 Pain Level 0 02/18/20 07:10 Comment 02/17/20 23:49 Intake & Output 02/18/20 02/18/20 02/19/20 11:59 23:59 11:59 Intake Total 250 / 730 480 / 730 Output Total 1300 / 1500 200 / 1500 500 / 500 Balance -1050 / -770 280 / -770 -500 / -500 Weight 67.7 kg Intake: Oral 250 / 730 480 / 730 Output: Urine 1300 / 1500 200 / 1500 500 / 500 Other: Urine Color Yellow Yellow Yellow Urine Appearance Clear Clear Clear Stool Size Large Stool Characteristics Liquid Brown Laboratory Results WBC 19.81 k/cumm (4.4-10.8) H 02/15/20 06:25 RBC 3.27 m/cumm (4.50-6.00) L 02/15/20 06:25 Hgb 10.7 g/dL (13.5-17.5) L 02/15/20 06:25 Hct 30.7 % (40.0-50.0) L 02/15/20 06:25 MCV 93.9 fL (80-95) 02/15/20 06:25 MCH 32.7 pg (27.0-33.0) 02/15/20 06:25 MCHC 34.9 g/dL (32.0-36.0) 02/15/20 06:25 RDW 15.1 % (11.8-14.1) H 02/15/20 06:25 Plt Count 267 x1000/uL (130-400) 02/15/20 06:25 MPV 9.9 fL (8.0-11.0) 02/15/20 06:25 Immature Gran % 0.0 % 02/15/20 06:25 Neutrophils % 92.0 02/15/20 06:25 Band Neutrophils % 2.0 % 02/15/20 06:25 Lymphocytes % 1.0 02/15/20 06:25 Monocytes % 5.0 02/15/20 06:25 Eosinophils % 0.0 02/15/20 06:25 Basophils % 0.0 02/15/20 06:25 Absolute Neutrophils 18.62 k/cumm (1.2-6.7) H 02/15/20 06:25 Absolute Lymphocytes 0.20 k/cumm (1.2-3.4) L 02/15/20 06:25 Absolute Monocytes 0.99 k/cumm (0.11-0.7) H 02/15/20 06:25 Absolute Eosinophils 0.00 k/cumm (0.0-0.7) 02/15/20 06:25 Absolute Basophils 0.00 k/cumm (0.0-0.2) 02/15/20 06:25 Differential Comment Manual differential 02/15/20 06:25 RBC Morphology See below 02/14/20 17:38 Polychromasia Present 02/14/20 17:38 [place] Cells 2+ 02/14/20 17:38 Sodium 137 mmol/L (136-145) 02/15/20 06:25 Potassium 2.5 mmol/L (3.5-5.1) L* 02/15/20 06:25 Chloride 106 mmol/L (98-107) 02/15/20 06:25 Carbon Dioxide 13.1 mmol/L (21.0-32.0) L 02/15/20 06:25 Anion Gap 17.9 mmol/L (3-11) H 02/15/20 06:25 BUN 68 mg/dL (7-18) H 02/15/20 06:25 Creatinine 3.84 mg/dL (0.70-1.30) H* 02/15/20 06:25 Estimated GFR/1.73 m2 15.14 (mL/min/1.73m2) 02/15/20 06:25 Glucose 114 mg/dL (74-106) H D 02/15/20 06:25 Lactate 1.5 mmol/L (0.6-1.4) H 02/15/20 09:30 Uric Acid 10.6 mg/dL (3.5-7.2) H 02/14/20 17:38 Calcium 6.2 mg/dL (8.5-10.1) L* 02/15/20 06:25 Magnesium 2.3 mg/dL (1.8-2.4) 02/15/20 06:25 Total Bilirubin 3.6 mg/dL (0.2-1.0) H 02/14/20 17:38 Conjugated Bilirubin 2.65 mg/dL (0.00-0.20) H 02/14/20 17:38 AST 49 U/L (15-37) H 02/14/20 17:38 ALT 83 U/L (16-63) H 02/14/20 17:38 Alkaline Phosphatase 214 U/L (46-116) H 02/14/20 17:38 Lactate Dehydrogenase Cancelled 02/15/20 09:02 LD Total Cancelled 02/15/20 09:02 LD Isoenzymes Cancelled 02/15/20 09:02 LD 1 Cancelled 02/15/20 09:02 LD 2 Cancelled 02/15/20 09:02 LD 3 Cancelled 02/15/20 09:02 LD 4 Cancelled 02/15/20 09:02 LD 5 Cancelled 02/15/20 09:02 Troponin I 0.09 ng/Ml (<0.06) H* 02/15/20 06:25 Total Protein 6.4 g/dL (6.4-8.2) 02/14/20 17:38 Albumin 2.3 g/dL (3.4-5.0) L 02/14/20 17:38 Urine Color Crista (Yellow) 02/14/20 17:24 Urine Clarity Cloudy (Clear) 02/14/20 17:24 Urine pH 6.0 (5-8) 02/14/20 17:24 Ur Specific [place] >= 1.030 (1.005-1.025) H 02/14/20 17:24 Urine Protein >=300 mg/dL (Negative) H 02/14/20 17:24 Urine Ketones Negative mg/dL (Negative) 02/14/20 17:24 Urine Blood Large (Negative) H 02/14/20 17:24 Urine Nitrite Negative (Negative) 02/14/20 17:24 Urine Bilirubin Small (Negative) H 02/14/20 17:24 Urine Urobilinogen 0.2 EU/dL (Up TO 0.2) 02/14/20 17:24 Ur Leukocyte Esterase Small (Negative) H 02/14/20 17:24 Urine RBC >50 HPF (0-2) H 02/14/20 17:24 Urine WBC >50 HPF (0-5) H 02/14/20 17:24 Ur Epithelial Cells Negative HPF (Negative) 02/14/20 17:24 Urine Crystals Negative HPF (Negative) 02/14/20 17:24 Urine Bacteria Packed HPF (Negative) 02/14/20 17:24 Urine Mucus Negative (Negative) 02/14/20 17:24 Urine Other Moderate renal (Negative) 02/14/20 17:24 Ur Culture Indicated? C&s done as ordered 02/14/20 17:24 Urine Glucose Negative mg/dL (Negative) 02/14/20 17:24 Stool Campylobacter PCR Negative (Negative) 02/14/20 17:15 Stool Salmonella PCR Negative (Negative) 02/14/20 17:15 Stool Shigella PCR Negative (Negative) 02/14/20 17:15 Shiga Toxin (PCR) Negative (Negative) 02/14/20 17:15
[2020-02-19] MEDS: Scopolamine 1 MG/3 DAYS PATCH TD (12:11)
--- NOTE | 2020-02-19 13:19 | INDS_ITS ---
Date of service: 02/19/20 Time of Service: 13:19 PT Notes Visit Reasons: DEHYDRATION,CHEMO INDUCED DIARRHEA;SUSPECTED UTI Physical Therapy Inpatient Discharge Summary Date: 02/19/2020 Referring Doctor: Beatrice Shipley MD PT Orders: PT CONSULT: Limited mobility Precautions:Fall risk Patient Profile/Admitting Diagnosis: Patient is actively dying per GLASS MECHANIC as of today. PT services no longer appropriate. Mr Gonzales is an 84 year old male with PMHx of diffuse large B cell lypmhoma, on polutuzumab, as well as NIDDM2, CKD, chronic urinary retention s/p arango catheter. He came to the ER and was admitted 02/14/2020 for weakness and two falls that morning in setting of diarrhea, presumably due to polutuzumab. He was seen in [facility] ED on 02/08/2020, 02/11/2020, and 02/12/2020 for diarrhea, nausea, weakness, and was sent home. He has had cancer for 7 years and has undergone several courses of chemotherapy, the most recent of which was on 02/02/20. PMHX: Medical History Allergic rhinitis (Chronic) Benign prostatic hypertrophy without urinary obstruction (Chronic) Chronic renal impairment (Chronic) Diabetes type 2, controlled (Chronic) Diffuse large B cell lymphoma (Chronic) Gout (Chronic) Hypercholesterolemia (Chronic) Hypertension (Chronic) Peripheral venous insufficiency (Chronic) Polyp of colon (Inactive) Urinary retention (Acute) Surgical History Colonoscopy - MAC (Inactive 07/08/16) Mediport placement (Chronic) Social History/Home Situation: Patient does live alone in [place] with 3 steps entering the dwelling and railing. Multilevel home but essentially lives on single level for bathroom kitchen living room and bedroom. States that he does have a daughter living locally who is considering moving him to help with his condition. Equipment Owned/DME: Patient indicates that he did have a front wheel walker at one time but after his passed 3 years ago her daughter cleaned the house outs and he cannot find it. States he does not have any assistive device currently. Subjective: NT Objective: General Observation: NT Mental Status: NT Pain: NT Bed Mobility/Transfers: Bed mobility: Total assist Supine?sit: Total assist Sit?stand: Total assist Stand?sit: Total assist Gait: Unable to test Balance: Static Sitting: Total assist Dynamic Sitting: Total assist Static Standing: Total assist Dynamic Standing: Total assist Assessment: Patient is actively dying per GLASS MECHANIC. PT services no longer appropriate. Patient demonstrated the following impairment level findings: 1. Decreased strength to bilateral hip and knee major muscle groups 2. Impaired standing balance 3. Impaired activity tolerance Impairments are contributing to the following functional limitations: 1. Increased dependence with transfers 2. Inability to safely ambulate without assistive device and physical assistance 3. Increase completion time for mobility ADL performance 4. Increased fall risk 5. Inability to negotiate steps alone safely Goals: Goals X1 week 1. Supine-Sit: Independent N/A 2. Sit-Supine: Independent N/A 3. Sit-Stand: To a FWW with supervision N/A 4. Stand-Sit: From a FWW with supervision N/A 5. Bed-Chair: With FWW with supervision N/A 6. Chair-Bed: With FWW with supervision N/A 7. Gait: 150' with SBA with FWW N/A DISCHARGE RECOMMENDATIONS: N/A. Patient actively dying. Continue with comfort measures only per MD and GLASS MECHANIC. TREATMENT CODE/TIME: NC. Thank you very much for this referral. Shireen Hoffman PT, DPT, CLT [facility]
--- NOTE | 2020-02-19 14:54 | CMPROGNOTE_ITS ---
- If Service Date Differs Date of service: 02/19/20 Time of Service: 14:54 Care Management Progress Note S/O: Per report, Luis appears to be actively dying. He is no longer eating or drinking, and is sleeping most of the day and all night. His daughter, Edwige, is present in his room and plans to remain with him until his passing. Luis is receiving morphine for pain and is comfortable. CM will continue to follow. A:Patel is an 84 year old male admitted with dehydration, chemo induced diarrhea. Placed on comfort measures only. P:Luis is comfort measure only, anticipate he will have end of life care here at [facility] and rehab. However given his current state he may not s urvive the weekend for transfer if accepted. Daughter is here in the room with Luis, with plans to remain with him until he passes. CM will continue to support pt, family and staff.
--- NOTE | 2020-02-20 13:09 | PGE_ITS ---
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 Unresponsive on morphine drip. Continue to make comfortable (2) Diffuse large B cell lymphoma: Start date: 02/20/20 Start time: 13:13 Status: Chronic Assessment and plan: With mets to the bone. see above. (3) Comfort measures only status: Start date: 02/20/20 Start time: 13:13 Status: Acute Assessment and plan: Actively dying after failing chemotherapy with Large B cell lymphoma with metastisis. Continue MENTAL HEALTH ASSISTANT. Above case discussed with Dr. Elena who is in agreement. Subjective Subjective Interval history since last seen: Appears to be dying. Not responsive at this time. appears comfortable on morphine. Continue 1mg/hr. Exam Narrative Exam Narrative: General: Thin, cachectic, elderly man,sleeping unresponsive. HEENT: Atraumatic, upper dentures in place, mouth open, mucous membranes very dry. Neck: Supple, no JVD. Cardiovascular: heart has regular rate and rhythm, distant heart sounds, tachycardic, no murmur appreciated. Respiratory: respirations appear unlabored Extremities: thin extremities, no edema, Objective Objective Clinical Data: Vital Signs Temperature 36.6 C 02/18/20 07:10 Temperature Source Tympanic 02/18/20 07:10 Pulse 70 02/18/20 07:10 Pulse Rhythm Regular 02/18/20 08:05 Respiratory Rate 21 02/18/20 07:10 Respiratory Effort 02/20/20 07:44 Respiratory Depth Deep 02/20/20 07:44 Respiratory Pattern Normal 02/20/20 07:44 Blood Pressure 160/65 H 02/18/20 07:10 Pulse Oximetry 97 02/18/20 07:10 Oxygen Delivery Method Room Air 02/18/20 07:10 Oxygen Flow Rate 0 02/18/20 07:10 Pain Level 0 02/18/20 07:10 Comment 02/17/20 23:49 Intake & Output 02/19/20 02/20/20 02/20/20 23:59 11:59 23:59 Output Total 800 / 800 Balance -800 / -800 Output: Urine 800 / 800 Other: Urine Color Light Crista Urine Appearance Clear Laboratory Results WBC 19.81 k/cumm (4.4-10.8) H 02/15/20 06:25 RBC 3.27 m/cumm (4.50-6.00) L 02/15/20 06:25 Hgb 10.7 g/dL (13.5-17.5) L 02/15/20 06:25 Hct 30.7 % (40.0-50.0) L 02/15/20 06:25 MCV 93.9 fL (80-95) 02/15/20 06:25 MCH 32.7 pg (27.0-33.0) 02/15/20 06:25 MCHC 34.9 g/dL (32.0-36.0) 02/15/20 06:25 RDW 15.1 % (11.8-14.1) H 02/15/20 06:25 Plt Count 267 x1000/uL (130-400) 02/15/20 06:25 MPV 9.9 fL (8.0-11.0) 02/15/20 06:25 Immature Gran % 0.0 % 02/15/20 06:25 Neutrophils % 92.0 02/15/20 06:25 Band Neutrophils % 2.0 % 02/15/20 06:25 Lymphocytes % 1.0 02/15/20 06:25 Monocytes % 5.0 02/15/20 06:25 Eosinophils % 0.0 02/15/20 06:25 Basophils % 0.0 02/15/20 06:25 Absolute Neutrophils 18.62 k/cumm (1.2-6.7) H 02/15/20 06:25 Absolute Lymphocytes 0.20 k/cumm (1.2-3.4) L 02/15/20 06:25 Absolute Monocytes 0.99 k/cumm (0.11-0.7) H 02/15/20 06:25 Absolute Eosinophils 0.00 k/cumm (0.0-0.7) 02/15/20 06:25 Absolute Basophils 0.00 k/cumm (0.0-0.2) 02/15/20 06:25 Differential Comment Manual differential 02/15/20 06:25 RBC Morphology See below 02/14/20 17:38 Polychromasia Present 02/14/20 17:38 [place] Cells 2+ 02/14/20 17:38 Sodium 137 mmol/L (136-145) 02/15/20 06:25 Potassium 2.5 mmol/L (3.5-5.1) L* 02/15/20 06:25 Chloride 106 mmol/L (98-107) 02/15/20 06:25 Carbon Dioxide 13.1 mmol/L (21.0-32.0) L 02/15/20 06:25 Anion Gap 17.9 mmol/L (3-11) H 02/15/20 06:25 BUN 68 mg/dL (7-18) H 02/15/20 06:25 Creatinine 3.84 mg/dL (0.70-1.30) H* 02/15/20 06:25 Estimated GFR/1.73 m2 15.14 (mL/min/1.73m2) 02/15/20 06:25 Glucose 114 mg/dL (74-106) H D 02/15/20 06:25 Lactate 1.5 mmol/L (0.6-1.4) H 02/15/20 09:30 Uric Acid 10.6 mg/dL (3.5-7.2) H 02/14/20 17:38 Calcium 6.2 mg/dL (8.5-10.1) L* 02/15/20 06:25 Magnesium 2.3 mg/dL (1.8-2.4) 02/15/20 06:25 Total Bilirubin 3.6 mg/dL (0.2-1.0) H 02/14/20 17:38 Conjugated Bilirubin 2.65 mg/dL (0.00-0.20) H 02/14/20 17:38 AST 49 U/L (15-37) H 02/14/20 17:38 ALT 83 U/L (16-63) H 02/14/20 17:38 Alkaline Phosphatase 214 U/L (46-116) H 02/14/20 17:38 Lactate Dehydrogenase Cancelled 02/15/20 09:02 LD Total Cancelled 02/15/20 09:02 LD Isoenzymes Cancelled 02/15/20 09:02 LD 1 Cancelled 02/15/20 09:02 LD 2 Cancelled 02/15/20 09:02 LD 3 Cancelled 02/15/20 09:02 LD 4 Cancelled 02/15/20 09:02 LD 5 Cancelled 02/15/20 09:02 Troponin I 0.09 ng/Ml (<0.06) H* 02/15/20 06:25 Total Protein 6.4 g/dL (6.4-8.2) 02/14/20 17:38 Albumin 2.3 g/dL (3.4-5.0) L 02/14/20 17:38 Urine Color Crista (Yellow) 02/14/20 17:24 Urine Clarity Cloudy (Clear) 02/14/20 17:24 Urine pH 6.0 (5-8) 02/14/20 17:24 Ur Specific [place] >= 1.030 (1.005-1.025) H 02/14/20 17:24 Urine Protein >=300 mg/dL (Negative) H 02/14/20 17:24 Urine Ketones Negative mg/dL (Negative) 02/14/20 17:24 Urine Blood Large (Negative) H 02/14/20 17:24 Urine Nitrite Negative (Negative) 02/14/20 17:24 Urine Bilirubin Small (Negative) H 02/14/20 17:24 Urine Urobilinogen 0.2 EU/dL (Up TO 0.2) 02/14/20 17:24 Ur Leukocyte Esterase Small (Negative) H 02/14/20 17:24 Urine RBC >50 HPF (0-2) H 02/14/20 17:24 Urine WBC >50 HPF (0-5) H 02/14/20 17:24 Ur Epithelial Cells Negative HPF (Negative) 02/14/20 17:24 Urine Crystals Negative HPF (Negative) 02/14/20 17:24 Urine Bacteria Packed HPF (Negative) 02/14/20 17:24 Urine Mucus Negative (Negative) 02/14/20 17:24 Urine Other Moderate renal (Negative) 02/14/20 17:24 Ur Culture Indicated? C&s done as ordered 02/14/20 17:24 Urine Glucose Negative mg/dL (Negative) 02/14/20 17:24 Stool Campylobacter PCR Negative (Negative) 02/14/20 17:15 Stool Salmonella PCR Negative (Negative) 02/14/20 17:15 Stool Shigella PCR Negative (Negative) 02/14/20 17:15 Shiga Toxin (PCR) Negative (Negative) 02/14/20 17:15
--- NOTE | 2020-02-20 14:45 | CMPROGNOTE_ITS ---
- If Service Date Differs Date of service: 02/20/20 Time of Service: 14:45 Care Management Progress Note S/O: Per report, Patel is not responsive at this time. He appears comfortable and his pain is under control with 1mg morphine drip. He will remain at [facility] for end of life care. CM will continue to follow. A:Patel is an 84 year old male admitted with dehydration, chemo induced diarrhea. Placed on comfort measures only. P:Luis is comfort measure only, anticipate he will have end of life care here at [facility]. Given his current state he may not survive the weekend. Daughter is here in the room with Luis, with plans to remain with him until he passes. CM will continue to support pt, family and staff.
--- NOTE | 2020-02-21 11:34 | PGE_ITS ---
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 Unresponsive on morphine drip. Continue to make comfortable, likely won't live longer then the next 24 hours Daughter at bedside, continue morphine 1mg/hr (2) Diffuse large B cell lymphoma: Start date: 02/21/20 Start time: 11:37 Status: Chronic Assessment and plan: With mets to the bone. see above. (3) Comfort measures only status: Start date: 02/21/20 Start time: 11:37 Status: Acute Assessment and plan: Actively dying after failing chemotherapy with Large B cell lymphoma with metastisis. Continue CATERING TRUCK DRIVER. Above case discussed with Dr. Elena who is in agreement. Subjective Subjective Patient reports: no new complaints Interval history since last seen: on CATERING TRUCK DRIVER, unresponsive making less urine. actively dying. Exam Narrative Exam Narrative: General: Thin, cachectic, elderly man,sleeping unresponsive. HEENT: Atraumatic, upper dentures in place, mouth open, mucous membranes very dry. Neck: Supple, no JVD. Respiratory: respirations appear unlabored Extremities: thin extremities, no edema, Objective Objective Clinical Data: Vital Signs Temperature 36.6 C 02/18/20 07:10 Temperature Source Tympanic 02/18/20 07:10 Pulse 70 02/18/20 07:10 Pulse Rhythm Regular 02/18/20 08:05 Respiratory Rate 21 02/18/20 07:10 Respiratory Effort 02/21/20 07:43 Respiratory Depth Deep 02/21/20 07:43 Respiratory Pattern Normal 02/21/20 07:43 Blood Pressure 160/65 H 02/18/20 07:10 Pulse Oximetry 97 02/18/20 07:10 Oxygen Delivery Method Room Air 02/18/20 07:10 Oxygen Flow Rate 0 02/18/20 07:10 Pain Level 0 02/18/20 07:10 Comment 02/17/20 23:49 Intake & Output 02/20/20 02/20/20 02/21/20 11:59 23:59 11:59 Output Total 800 / 1450 650 / 1450 75 / 75 Balance -800 / -1450 -650 / -1450 -75 / -75 Output: Urine 800 / 1450 650 / 1450 75 / 75 Other: Urine Color Light Crista Yellow Yellow Urine Appearance Clear Clear Clear Laboratory Results WBC 19.81 k/cumm (4.4-10.8) H 02/15/20 06:25 RBC 3.27 m/cumm (4.50-6.00) L 02/15/20 06:25 Hgb 10.7 g/dL (13.5-17.5) L 02/15/20 06:25 Hct 30.7 % (40.0-50.0) L 02/15/20 06:25 MCV 93.9 fL (80-95) 02/15/20 06:25 MCH 32.7 pg (27.0-33.0) 02/15/20 06:25 MCHC 34.9 g/dL (32.0-36.0) 02/15/20 06:25 RDW 15.1 % (11.8-14.1) H 02/15/20 06:25 Plt Count 267 x1000/uL (130-400) 02/15/20 06:25 MPV 9.9 fL (8.0-11.0) 02/15/20 06:25 Immature Gran % 0.0 % 02/15/20 06:25 Neutrophils % 92.0 02/15/20 06:25 Band Neutrophils % 2.0 % 02/15/20 06:25 Lymphocytes % 1.0 02/15/20 06:25 Monocytes % 5.0 02/15/20 06:25 Eosinophils % 0.0 02/15/20 06:25 Basophils % 0.0 02/15/20 06:25 Absolute Neutrophils 18.62 k/cumm (1.2-6.7) H 02/15/20 06:25 Absolute Lymphocytes 0.20 k/cumm (1.2-3.4) L 02/15/20 06:25 Absolute Monocytes 0.99 k/cumm (0.11-0.7) H 02/15/20 06:25 Absolute Eosinophils 0.00 k/cumm (0.0-0.7) 02/15/20 06:25 Absolute Basophils 0.00 k/cumm (0.0-0.2) 02/15/20 06:25 Differential Comment Manual differential 02/15/20 06:25 RBC Morphology See below 02/14/20 17:38 Polychromasia Present 02/14/20 17:38 [place] Cells 2+ 02/14/20 17:38 Sodium 137 mmol/L (136-145) 02/15/20 06:25 Potassium 2.5 mmol/L (3.5-5.1) L* 02/15/20 06:25 Chloride 106 mmol/L (98-107) 02/15/20 06:25 Carbon Dioxide 13.1 mmol/L (21.0-32.0) L 02/15/20 06:25 Anion Gap 17.9 mmol/L (3-11) H 02/15/20 06:25 BUN 68 mg/dL (7-18) H 02/15/20 06:25 Creatinine 3.84 mg/dL (0.70-1.30) H* 02/15/20 06:25 Estimated GFR/1.73 m2 15.14 (mL/min/1.73m2) 02/15/20 06:25 Glucose 114 mg/dL (74-106) H D 02/15/20 06:25 Lactate 1.5 mmol/L (0.6-1.4) H 02/15/20 09:30 Uric Acid 10.6 mg/dL (3.5-7.2) H 02/14/20 17:38 Calcium 6.2 mg/dL (8.5-10.1) L* 02/15/20 06:25 Magnesium 2.3 mg/dL (1.8-2.4) 02/15/20 06:25 Total Bilirubin 3.6 mg/dL (0.2-1.0) H 02/14/20 17:38 Conjugated Bilirubin 2.65 mg/dL (0.00-0.20) H 02/14/20 17:38 AST 49 U/L (15-37) H 02/14/20 17:38 ALT 83 U/L (16-63) H 02/14/20 17:38 Alkaline Phosphatase 214 U/L (46-116) H 02/14/20 17:38 Lactate Dehydrogenase Cancelled 02/15/20 09:02 LD Total Cancelled 02/15/20 09:02 LD Isoenzymes Cancelled 02/15/20 09:02 LD 1 Cancelled 02/15/20 09:02 LD 2 Cancelled 02/15/20 09:02 LD 3 Cancelled 02/15/20 09:02 LD 4 Cancelled 02/15/20 09:02 LD 5 Cancelled 02/15/20 09:02 Troponin I 0.09 ng/Ml (<0.06) H* 02/15/20 06:25 Total Protein 6.4 g/dL (6.4-8.2) 02/14/20 17:38 Albumin 2.3 g/dL (3.4-5.0) L 02/14/20 17:38 Urine Color Crista (Yellow) 02/14/20 17:24 Urine Clarity Cloudy (Clear) 02/14/20 17:24 Urine pH 6.0 (5-8) 02/14/20 17:24 Ur Specific [place] >= 1.030 (1.005-1.025) H 02/14/20 17:24 Urine Protein >=300 mg/dL (Negative) H 02/14/20 17:24 Urine Ketones Negative mg/dL (Negative) 02/14/20 17:24 Urine Blood Large (Negative) H 02/14/20 17:24 Urine Nitrite Negative (Negative) 02/14/20 17:24 Urine Bilirubin Small (Negative) H 02/14/20 17:24 Urine Urobilinogen 0.2 EU/dL (Up TO 0.2) 02/14/20 17:24 Ur Leukocyte Esterase Small (Negative) H 02/14/20 17:24 Urine RBC >50 HPF (0-2) H 02/14/20 17:24 Urine WBC >50 HPF (0-5) H 02/14/20 17:24 Ur Epithelial Cells Negative HPF (Negative) 02/14/20 17:24 Urine Crystals Negative HPF (Negative) 02/14/20 17:24 Urine Bacteria Packed HPF (Negative) 02/14/20 17:24 Urine Mucus Negative (Negative) 02/14/20 17:24 Urine Other Moderate renal (Negative) 02/14/20 17:24 Ur Culture Indicated? C&s done as ordered 02/14/20 17:24 Urine Glucose Negative mg/dL (Negative) 02/14/20 17:24 Stool Campylobacter PCR Negative (Negative) 02/14/20 17:15 Stool Salmonella PCR Negative (Negative) 02/14/20 17:15 Stool Shigella PCR Negative (Negative) 02/14/20 17:15 Shiga Toxin (PCR) Negative (Negative) 02/14/20 17:15
--- NOTE | 2020-02-21 13:12 | W.NUTRFU ---
Date of service: 02/21/20 Time of Service: 13:12 Nutritional Follow up NOTE: Luis is unresponsive, end of life care. No tray being sent at this time. Time Spent in Nutritional Counseling and Treatment: 0 time spent face to face
--- NOTE | 2020-02-21 14:35 | CMPROGNOTE_ITS ---
- If Service Date Differs Date of service: 02/21/20 Time of Service: 14:35 Care Management Progress Note S/O: Patel is not responsive at this time. He appears comfortable and his pain is under control on the morphine drip. He will remain at [facility] for end of life care. Patel's daughter Yue has been staying in the room with him and rarely leaves his side. She has expressed deep gratitude for the excellent nursing care both she and her Dad are receiving at this difficult time. CM will continue to follow and support bit Silva.. A:Patel is an 84 year old male admitted with dehydration, chemo induced diarrhea. Placed on comfort measures only. P:Patel is receiving end of life comfort care and it is expected that he will soon. His daughter is staying in the room with him. CM will continue to support patient, family and care givers.
--- NOTE | 2020-02-21 16:02 | CHAPLAIN ---
Patel was unresponsive today. He is on comfort measures only. I visited with his daughter Deepa who arrived over the weekend and has been staying in the room with Patel. Deepa lives in a [place] community in [place]. She said her father is not connected to a [place] community here. Patel took care of his Sonam, and was very devoted to her. She a couple of years ago. Deepa plans to stay with Patel until he dies. Patel continues to be comfortable, and Deepa is appreciative of the care he is receiving. Patel provided her with a document that includes information about his home and contacts information for taking care of his house and financial maters.
--- NOTE | 2020-02-21 18:28 | W.PM.DDS ---
Date of service: 02/21/20 Time of Service: 18:28 Discharge Sum: Prov Provider Consults: 02/14/20 14:46 Physical Therapy Consult [CONS] Routine Consulting Provider: Bacilio Christianson Priority: Non-Urgent Reson for Non-Urgent Priority: Limited Ability 02/15/20 12:42 Palliative Care Consult [CONS] Routine Consultation Status:: Follow-up needed Clarification:: Manage/follow per spec. Reason for consult:: goals of care end of life failing chemo unable to care for self at home. Discharge Sum: Diag PCOD Cause of : Lymphoma, large-cell, diffuse Contributing Factors (1) Diffuse large B cell lymphoma: Contributing factors: With metastsis to the bone. Failed treatment. Discharge Sum: Summary Date and Time Date of : 02/21/20 Time of : 16:40 Summary Details: Diffuse B cell lymphoma with metastatic cancer to the bone and actively dying after failing treatment Additional Data Confirmation of as documented by pronouncing clinician: no pulse, no respirations and no heart sounds Family: at bedside Attending Physician: Beatrice Bueno Was code activated?: No Autopsy requested?: No Hospice patient?: Yes
== END 2020-02-21 16:45 | disposition expired | DRG 841 ==
PROVIDERS: General Practice; Admitting Provider Internal Medicine; PCP Internal Medicine; Visit Provider Internal Medicine
DX: C83.30 Diffuse large B-cell lymphoma, unspecified site (principal); R65.10 Systemic inflammatory response syndrome (SIRS) of non-infectious origin without acute organ dysfunction; C79.51 Secondary malignant neoplasm of bone; K52.1 Toxic gastroenteritis and colitis; R64 Cachexia; R33.9 Retention of urine, unspecified; R26.89 Other abnormalities of gait and mobility; E11.22 Type 2 diabetes mellitus with diabetic chronic kidney disease; N18.9 Chronic kidney disease, unspecified; T45.1X5A Adverse effect of antineoplastic and immunosuppressive drugs, initial encounter; Z79.899 Other long term (current) drug therapy; Z91.81 History of falling; I12.9 Hypertensive chronic kidney disease with stage 1 through stage 4 chronic kidney disease, or unspecified chronic kidney disease; Z51.5 Encounter for palliative care; L22 Diaper dermatitis; Z68.21 Body mass index [BMI] 21.0-21.9, adult
CPT/HCPCS: 36415; 80048; 80076; 85027; 87040; 87449; 87505; 97110; 97162; 97530; 99223; 99232; 99233; 99239; 99255; 71045; 81003; 81015; 83605; 83625; 83735; 84484; 84550; 85025; 87086; 87324; 93005; 93010; J1644; J3480